=== PATIENT | female | born 1970 | race Caucasian/White ===

== ENCOUNTER → 2018-08-07 08:21 | Outpatient (CLI) | payer BC, SELFPAY ==
--- NOTE | 2018-08-07 10:04 | US_ITS ---
FNA w guidance, US thyroid HISTORY: ITS.REASON: THROID NODULE ORDERING PHYSICIAN: Benoit Adams MD PATIENT AGE: 48 years COMPARISON: None Thyroid ultrasound: Prebiopsy exam performed and compared to the outside exam of 06/05/2018 demonstrated in the complex mostly cystic mass in the mid aspect of the right lobe of the thyroid gland at 3 x 1.8 cm. Prebiopsy planning was then performed. TECHNIQUE: Following obtaining informed consent, using aseptic technique and local anesthesia with buffered lidocaine, fine-needle aspiration was performed of the nodule of interest using sonographic guidance. 3 passes were made into the nodule with a 25-gauge needle. Specimen was given to cytology. The patient tolerated the procedure well without evidence of immediate complications and left the ultrasound suite in stable condition. CYTOLOGY:Negative for malignant cells IMPRESSION: Successful sonographic guided fine-needle aspiration of the right thyroid nodule. Negative for malignant cells
== END ==
PROVIDERS: PCP Physician Assistant; Visit Provider Otolaryngology
DX: D34 Benign neoplasm of thyroid gland (principal)
CPT/HCPCS: 10022; 76536

== ENCOUNTER 2025-03-20 13:29 | Outpatient (POV) | payer MEDICARE, SELFPAY ==
[2025-03-20 14:57] VITALS: BP 105/63; PULSE 74; RESP 18; O2SAT 93; BMI 36.6
--- NOTE | 2025-03-20 15:50 | EXP.PAIN.OV ---
HPI Data of Consult Patient: new to practice Consult date: 03/20/25 Requesting Physician: Holly Mccoy APRN Primary Care Provider: TAMMI Kaminski Consult Narrative Reason for consult: Chronic low back pain History of present illness: Ms. Becerril is a 54 year old female who presents today as a new patient. She is a referral from Dr. Jamel Valencia office they are at [facility]. Today she rates her pain a 7 out of 10. Patient states she has chronic low back pain and denies any radiating symptoms into her legs. She states about 5 years ago she did end up having a lumbar fusion from an outside provider and it did help initially however over time its progressively worsened. She does describe it as just a constant painful sensation that interferes with activities of daily living such as cooking and cleaning. Patient has tried oral medications, heat and ice, topicals, at home stretching exercise for longer than 12 weeks as well as physical therapy that made her symptoms worse. Patient has tried multiple epidurals and facet injections including ablations with no additional relief. Patient was not being recommended for additional surgery by the neurosurgeon and was being recommended for more conservative treatments such as a pump. Patient is prescribed tramadol from an outside provider. Her Patrice has been reviewed and is appropriate. Patient does have a history of heart related issues and is on blood thinners written by Dr. Gomez there in [place]. CC: Holly Mccoy APRN [facility] Disclaimer: The information contained in this section may have been updated after the patient was seen, as this information can be updated by other users. Medical History (Updated 03/20/25 @ 15:55 by Holly Mccoy APRN) Vitamin D deficiency Depression Arthritis Emphysema of lung Thyroid disease GERD (gastroesophageal reflux disease) Heart disease Surgical History (Updated 03/20/25 @ 15:07 by Steff Lezama RN) History of lumbar spinal fusion Hx of cholecystectomy H/O: hysterectomy Family History (Updated 03/20/25 @ 15:05 by Steff Lezama RN) Other Diabetes Heart disease Hypertension Seizures Stroke Social History (Updated 03/20/25 @ 15:11 by Steff Lezama RN) Smoking Status: Current every day smoker alcohol intake: never current occupational status: unemployed Travel in the last 8 weeks?: None Contact w/someone who lives/traveled outside US past 30 days?: No Exposure to someone with infectious disease in past 14 days?: No Do you have a fever (greater than 100.4 F or 38 C)?: No Have you tested positive for COVID-19?: No Exposed to someone with COVID-19 in past 14 days?: No Do you have a sore throat?: No Do you have a cough?: No Do you have any weakness?: No Are you experiencing any nausea/vomitting?: No Do you have any diarrhea?: No Are you experiencing any unusual bleeding?: No Do you have any muscle aches/pain?: No Do you have any abdominal pain?: No Are you experiencing loss of taste or smell?: No Review of Systems Review of Systems Review of systems:: pertinent systems reviewed and negative unless documented below Review of systems (narrative): Review of Systems: General: No recent weight changes, no fever, no sleep disturbances Respiratory: No cough, no shortness of air, no recurring pulmonary infections Cardiovascular/peripheral vascular: No chest pain, no palpitations, no edema, no shortness of breath Gastrointestinal: No new onset incontinence, normal bowel movements reported Genitourinary: No new onset incontinence Musculoskeletal: Low back pain Psychiatric: [Normal mood/affect] Neurological: [Denies weakness in extremities], [denies balance issues] Meds Home Medications and Allergies Home Medications ?Medication ?Instructions ?Recorded ?Confirmed ?Type atorvastatin 80 mg tablet 80 mg PO DAILY Cholesterol 03/20/25 03/20/25 History blood sugar diagnostic (OneTouch 03/20/25 03/20/25 History Ultra Test strips) celecoxib 200 mg capsule 200 mg PO DIRECTED Pain 03/20/25 03/20/25 History citalopram 20 mg tablet 20 mg PO DIRECTED MOOD 03/20/25 03/20/25 History clopidogrel 75 mg tablet 75 mg PO DAILY CAD 03/20/25 03/20/25 History fluticasone propionate 50 1 spray intranasal DIRECTED 03/20/25 03/20/25 History mcg/actuation nasal ALLERGIES spray,suspension glipizide 10 mg tablet 10 mg PO DIRECTED DM 03/20/25 03/20/25 History hydrochlorothiazide 25 mg tablet 25 mg PO DIRECTED Fluid 03/20/25 03/20/25 History insulin glargine 100 unit/mL (3 50 unit SQ DAILY DM 03/20/25 03/20/25 History mL) subcutaneous pen (Lantus Solostar U-100 Insulin) levothyroxine 137 mcg tablet 137 mcg PO DAILY THYROID 03/20/25 03/20/25 History (Synthroid) montelukast 10 mg tablet 10 mg PO DAILY ALLERGIES 03/20/25 03/20/25 History pantoprazole 40 mg tablet,delayed 40 mg PO DAILY GERD 03/20/25 03/20/25 History release pen needle, diabetic 31 gauge x 03/20/25 03/20/25 History 3/16 semaglutide 0.25 mg or 0.5 mg (2 0.25 mg SQ WEEKLY DM 03/20/25 03/20/25 History mg/3 mL) subcutaneous pen injector (Ozempic) torsemide 20 mg tablet 20 mg PO DIRECTED Fluid 03/20/25 03/20/25 History trazodone 50 mg tablet 50 mg PO DIRECTED SLEEP 03/20/25 03/20/25 History New Prescriptions to Start Prescriptions: Allergies Allergy/AdvReac Type Severity Reaction Status Date / Time No Known Allergies Allergy Verified 03/20/25 15:23 Objective Vital signs: Pulse Resp BP Pulse Ox O2 Del Method 74 18 105/63 L 93 L Room Air 03/20/25 14:57 03/20/25 14:57 03/20/25 14:57 03/20/25 14:57 03/20/25 14:57 Narrative: Physical Exam: General: Alert and oriented x3, no acute distress, pleasant and cooperative Lungs: Respirations even and unlabored, symmetrical chest expansion Eyes: PERRL Musculoskeletal: Flexion and extension of lumbar [spine] somewhat guarded secondary to pain, [antalgic gait noted] extreme point tenderness on the lower lumbar spine Neurological: Speech clear, no gross sensory deficit Additional findings Additional findings: CT lumbar spine without contrast 02/17/2025 Findings: Evidence of prior fusion on the right SI joint with orthopedic hardware in place. Left-sided pars defect at L5. No evidence of malalignment no evidence of fracture. There are degenerative changes present throughout the lumbar spine with facet hypertrophic changes most notable at L5-S1. Assessment and Plan *Assessment and plan (1) Degenerative disc disease: Status: Acute Category: Medical (2) Lumbar facet arthropathy: Status: Acute Category: Medical Code(s): M47.816 - Spondylosis without myelopathy or radiculopathy, lumbar region (3) Chronic pain syndrome: Status: Acute Category: Medical Code(s): G89.4 - Chronic pain syndrome Plan I did discuss at length with the patient due to her chronic low back pain that has not had any improvement with additional injection therapy including epidurals and ablations that I do believe she would be a beneficial candidate of the intrathecal pain pump trial. Risk and benefits were discussed with patient and educational handouts given at today's visit. Patient would like to proceed forward with this plan of care. Patient will be sent for a psychological evaluation and if she is deemed an appropriate candidate we will proceed forward with the trial at a later date. I will also order the patient a compounded cream. Patient will return to clinic in 1 month for reevaluation of symptoms and plan of care. Patient has been instructed to contact the clinic with any concerns before the next appointment. Dr. Velez has reviewed this note and agrees with this plan of care. This note was dictated using voice recognition software and make contain errors or omissions. All injections are used with Lidocaine, Bupivacaine and dexamethasone. Occasionally urine drug screen is needed to verify patient's compliance with our office pain contract. This is ordered based off specific treatments related to chronic pain with the potential to abuse certain medications.
== END 2025-03-20 23:59 | disposition home or self-care (01) ==
LOC: SC.PAIN 13:30
PROVIDERS: PCP Physician Assistant; Visit Provider Nurse Practitioner Family
DX: M47.816 Spondylosis without myelopathy or radiculopathy, lumbar region (principal); G89.4 Chronic pain syndrome; Z73.89 Other problems related to life management difficulty; F17.200 Nicotine dependence, unspecified, uncomplicated
CPT/HCPCS: 99202; G0463

== ENCOUNTER 2025-05-01 09:17 | Outpatient (POV) | payer MEDICARE, SELFPAY ==
--- OUTSIDE RECORDS SUMMARY | 2025-02-18 20:00 | XMS_ITS | CCD ---
Author Name Armarkell RASHIDSilvia Address [address] [facility] [address] [place] [address] Phone Organization [facility] Phone Care Team Providers Care Decision Support Manager Name Role Phone Office, [place] Primary Care Provider Unavaila ble Unavailable Chronic Care Management Unavaila ble Summary Purpose DataExchange Insurance Providers Payer name Policy type / Coverage type Covered alliance party ID Effective Begin Date Effective End Date [employer] [facility] [id number] Unknown Unknown Family History Family History data not found Problems Condition Codes Effective Dates Condition St atus Patient not seen ICD-10: UXZ.01 ICD-9: UXZ.01 02/19/2025 Active Chest Pain Unknown 02/18/2025 Active History of cardiac catheterization Unknown 2024 Active Abnormal result of other cardiovascular function study ICD-10: R94.39 08/31/2023 Active Acute laryngitis ICD-10: J04.0 10/04/2023 Active Acute upper respiratory infe ction, unspecified ICD-10: J06.9 09/27/2022 Active Anemia, unspecified ICD-10: D64.9 12/23/2022 Active Angina pectoris, unspecified ICD-10: I20.9 08/31/2023 Active Atherosclerotic heart diseas e of [place] coronary artery without angina pectoris ICD-10: I25.10 09/04/2023 Active Meeks's esophagus without dysplasia ICD-10: K22.70 09/26/2024 Active Calculus of kidney ICD-10: N20.0 02/05/2024 Active Candidal stomatitis ICD-10: B37.0 09/27/2022 Active Cardiac murmur, unspecified ICD-10: R01.1 07/19/2023 Active Change in bowel habit ICD-10: R19.4 01/22/2024 Activ e Chronic fatigue, unspecified ICD-10: R53.82 12/28/2022 Active Chronic kidney disease, stag e 3 unspecified ICD-10: N18.30 11/11/2024 Active Chronic obstructive pulmonar y disease, unspecified ICD-10: J44.9 12/23/2022 Active Cough, unspecified ICD-10: R05.9 09/27/2022 Active Deficiency of other specifie d B group vitamins ICD-10: E53.8 07/05/2024 Active Depression, unspecified ICD-10: F32.A 12/23/2022 Act hans Disorder of the skin and subcutaneous tissue, unspecified ICD-10: L98.9 12/24/2024 Active Edema, unspecified ICD-10: R60.9 07/19/2023 Active Elevated white blood cell co unt, unspecified ICD-10: D72.829 07/02/2024 Active Essential (primary) hypertension ICD-10: I10 08/31/20 Active Fever, unspecified ICD-10: R50.9 01/01/2024 Active Frequency of micturition ICD-10: R35.0 09/07/2023 Ac tive Heart disease, unspecified ICD-10: I51.9 08/02/2023 Active Hyperlipidemia, unspecified ICD-10: E78.5 09/07/2023 Active Hypersomnia, unspecified ICD-10: G47.10 01/10/2023 A ctive Hypertrophic disorder of the skin, unspecified ICD-10: L91.9 12/24/2024 Active Hypokalemia ICD-10: E87.6 01/18/2024 Active Hypomagnesemia ICD-10: E83.42 06/29/2023 Active Hypothyroidism, unspecified ICD-10: E03.9 12/23/2022 Active Hypoxemia ICD-10: R09.02 04/05/2023 Active Iron deficiency ICD-10: E61.1 12/23/2022 Active Iron deficiency anemia, unspecified ICD-10: D50.9 08/20 Active Localized edema ICD-10: R60.0 09/07/2023 Active Major depressive disorder, recurrent severe without psychotic features ICD-10: F33.2 06/29/2023 Active Mixed incontinence ICD-10: N39.46 09/07/2023 Active Morbid (severe) obesity due to excess calories ICD-10: E66.01 09/26/2024 Active Nasal congestion ICD-10: R09.81 07/02/2024 Active Nausea ICD-10: R11.0 12/30/2022 Active Nausea with vomiting, unspecified ICD-10: R11.2 2023 Active Nicotine dependence, unspeci fied, uncomplicated ICD-10: F17.200 08/02/2023 Active Obstructive sleep apnea (liane lt) (pediatric) ICD-10: G47.33 06/29/2023 Active Other allergy, subsequent encounter ICD-10: T78.49XD 0 07/02/2024 Active Other amnesia ICD-10: R41.3 02/23/2023 Active Other chest pain ICD-10: R07.89 08/01/2023 Active Other forms of dyspnea ICD-10: R06.09 04/05/2023 Act hans Other intervertebral disc displacement, lumbar region ICD-10: M51.26 02/23/2023 Active Pain in unspecified joint ICD-10: M25.50 11/07/2024 Active Peripheral vascular disease, unspecified ICD-10: I73.9 11/07/2023 Active Sleep disorder, unspecified ICD-10: G47.9 12/28/2022 Active Somnolence ICD-10: R40.0 12/28/2022 Active Type 2 diabetes mellitus wit h hyperglycemia ICD-10: E11.65 07/06/2023 Active Type 2 diabetes mellitus wit hout complications ICD-10: E11.9 12/28/2022 Active Urinary tract infection, sit e not specified ICD-10: N39.0 11/07/2023 Active Vitamin D deficiency, unspecified ICD-10: E55.9 2022 Active Medications Medication Codes Instructions Start Date Stop Date Status Fill Instructions nitrofurantoin, macrocrystal-monohydrat e, (MACROBID) 100 MG capsule RxNorm: 3447432 Take 1 capsule (100 mg total) by mouth 2 (two) times daily. 02/19/20 25 Active hydroCHLOROthiazide (HYDRODIURIL) 25 MG tablet RxNorm: 504557 Take 1 tablet (25 mg total) by mouth daily. 02/19/20 25 Active diclofenac (VOLTAREN) 75 MG EC tablet RxNorm: 438701 Take 1 tablet (75 mg total) by mouth 2 (two) times daily. 02/19/20 25 Active traZODone (DESYREL) 50 MG tablet RxNorm: 146919 Take 1 tablet (50 mg total) by mouth nightly. 02/19/20 25 Active torsemide (DEMADEX) 20 MG tablet RxNorm: 717761 Take 1 tablet (20 mg total) by mouth daily. 02/19/20 25 Active glipiZIDE (GLUCOTROL) 10 MG tablet RxNorm: 260371 Take 1 tablet (10 mg total) by mouth 2 (two) times daily before meals. 02/19/20 25 Active citalopram (CeleXA) 20 MG tablet RxNorm: 349680 Take 1 tablet (20 mg total) by mouth daily. 02/19/20 25 Active pantoprazole (PROTONIX) 40 MG tablet RxNorm: 019182 Take 1 tablet (40 mg total) by mouth daily. 02/19/20 25 Active aspirin 81 MG EC tablet RxNorm: 717928 Take 1 tablet (81 mg total) by mouth daily. 02/19/20 25 Active levothyroxine (SYNTHROID, LEVOTHROID) 112 MCG tablet RxNorm: 015748 Take 1 tablet (112 mcg total) by mouth Every morning on an empty stomach. 02/19/20 25 Active clopidogreL (PLAVIX) 75 mg tablet RxNorm: 818997 Take 1 tablet (75 mg total) by mouth daily. 02/19/20 25 Active atorvastatin (LIPITOR) 80 MG tablet RxNorm: 296983 Take 1 tablet (80 mg total) by mouth daily. 02/19/20 25 Active nitroglycerin (NITROSTAT) 0.4 MG SL tablet RxNorm: 393305 Place 1 tablet (0.4 mg total) under the tongue every 5 (five) minutes as needed for Chest pain Put 1 pill under tongue every 5min as needed for chest pain.No more than 3 doses in 15min.Call 911 if pain unrelieved 5min after 1st dose. 02/19/20 25 Active Medication Administered No Medication Administered data Reason For Visit No Reason For Visit data Encounters Encounter Performer Location Location Address Codes Date () No answer/Patient not seen Diagnosis: Patient not seen[ICD10: UXZ.01] Sivlia Dumont [place] Office [address] [place] [address] CPT-4: 31015 02/19/2025 Plan of Care Planned Activity Notes Codes Status Date Patient Education: Patient Medication Summary Completed 02/19/2025 Medical Equipment No Medical Equipment data Advance Directives No Advance Directive data
--- OUTSIDE RECORDS SUMMARY | 2025-05-01 09:28 | XMS_ITS | Encounter Summary ---
Author Organization [facility] Address [address] [place] [id number] Care Team Providers Care Contractor Broomcorn Threshing Name Role Phone Tadeo Nieves PA-C Unavailable [phone] Fred Jameson Primary Care Provider Encounter Details Date Type Department Care Team (Late st Contact Info) Description 05/28/2020 Transcribed Document [facility] [address] [place] [address] ProviderBettie MD [address] [place] [address] Social History Tobacco Use Types Packs/Day Years Used Date Smoking Tobacco: Never Assessed Comments Unknown Sex and Gender Information Value Date Recorded Sex Assigned at Not on file Legal Sex Female 5:15 PM CDT Gender Identity Not on file Sexual Orientation Not on file documented as of this encounter Miscellaneous Notes * [employer]ner Conversion Note - Bettie ProviderMD - 05/28/2020 8:33 AM CDT UM Authorization Entered On: 05/28/2020 8:33 EDT Performed On: 05/28/2020 8:33 EDT by MARIELLE MATHEW RN-Utilization Review Primary Insurance Authorization Authorization and Policy Numbers : Insurance 1 Health Plan: [employer] Policy Number: [id number] Authorization Number: [id number] Insurance Primary Name : [employer]LE [employer] Policy Number: [id number] Authorization Status-Primary : Opo status approv Authorized Service Begin Date-Primary : 05/27/2020 EDT Observation Authorization Nbr-Primary : [id number] Authorization Comments-Primary : [place] auth approved per availity for obs Historical Authorization Comments-Primary : No Authorization Comments Found MARIELLE MATHEW, RN-Utilization Review - 05/28/2020 8:33 EDT Electronically signed by [facility]it [facility] Conversion Credit Risk Manager Cerner at 03/07/2023 9:22 AM CDT documented in this encounter Plan of Treatment Not on file documented as of this encounter Visit Diagnoses Not on filedocumented in this encounter Care Teams Contractor [employer] Threshing Relationship Specialty Start Date End Date Fred Jameson PA [address] [place] [address] PCP - General Physician Clinical Ob 12/11/23 Tadeo Nieves PA-[place] [address] [facility] [address]nd [place] [address] Physician Clinical Ob 01/27/23 documented as of this encounter
--- OUTSIDE RECORDS SUMMARY | 2025-05-01 09:28 | XMS_ITS | Encounter Summary ---
Author Organization [facility] [email or web address] In iatives Address [address] [place] [address] Care Team Providers Care Study Lead Name Role Phone Tadeo Nieves PA-C Unavailable [phone] Fred Jameson Primary Care Provider Encounter Details Date Type Department Care Team (Late st Contact Info) Description 05/27/2020 Transcribed Document [facility] [place] [facility] [place] [address] ProviderBettie MD [address] [place] [address] Social History Tobacco Use Types Packs/Day Years Used Date Smoking Tobacco: Never Assessed Comments Unknown Sex and Gender Information Value Date Recorded Sex Assigned at Not on file Legal Sex Female 5:15 PM CDT Gender Identity Not on file Sexual Orientation Not on file documented as of this encounter Miscellaneous Notes * Cerner Conversion Note - Bettie ProviderMD - 05/27/2020 12:44 PM CDT Pre Procedure Adult Entered On: 05/27/2020 12:54 EDT Performed On: 05/27/2020 12:44 EDT by Sara Reed RN Height and Weight, Clinical Dosing Height Source : Stated Height Entry Format : [place] Height, Feet : 5 ft(Converted to: 152 cm, 60 Inch) Height, Inches : 5 Inch(Converted to: 0 ft 5 Inch, 12.70 cm) Clinical Height : 165.1 cm Weight Source : Standing scale Weight Entry Format : [place] Clinical Dosing Weight : 112.95 kg Weight, Pounds : 248 lb Weight, Ounces : 8 oz Body Surface Area (BSA) : 2.17 m2 Body Mass Index : 41.4 kg/m2 (>HHI) Crowder Body Weight : 57 kg Sara Reed RN - 05/27/2020 12:44 EDT Health Histories Smoking Status : 10 or more cigarettes (1/2 pack or more)/day in last 30 days Smokeless Tobacco Status : Never Desires Tobacco Cessation Medication : No Reason for No Tobacco Cessation Medication : Refuses FDA approved medications Sara Reed RN - 05/27/2020 12:44 EDT Social History (As Of: 05/27/2020 12:54:53 EDT) Tobacco: 10 or more cigarettes (1/2 pack or more)/day in last 30 days Smoking Status. Never Smokeless Tobacco Status. Years of Use: 30. Packs/Tins Daily: .5. (Last Updated: 05/27/2020 12:45:45 EDT by Sara Reed RN) Alcohol: Alcohol Use History No. (Last Updated: 05/27/2020 12:45:48 EDT by Sara Reed RN) Substance Abuse: Drug Use Hx: No. (Last Updated: 05/27/2020 12:45:52 EDT by Sara Reed RN) Infectious Disease History Has the patient ever been tested for COVID-19? : Yes, Patient stated results Negative Where was the COVID-19 Testing completed? : [facility] Where are the test results? : Paper Copy on chart Date of COVID-19 test known? : Yes Date of COVID-19 Test : 05/25/2020 EDT COVID19 Screening : No Experiencing Infectious Disease Symptoms : No symptoms Physical contact outside [place] in the last 30 days : No Infectious Disease Symptoms Score : 0 Infectious Disease History : Chicken pox/Shingles, Influenza, Measles Active Surveillance Screen Assessment : Patient does not meet any of above criteria Active Surveillance Screen Negative : Yes Exposure to Contagious Illness : No Tuberculosis Symptoms : None Sara Reed RN - 05/27/2020 12:44 EDT COVID19 PreProcedure Screening Is this an Emergent or Add on Procedure? : No Date of COVID-19 test known? : Yes Date of COVID-19 Test : 05/25/2020 EDT Has patient been isolated since the test : Yes Exposed to COVID19 symptoms since test? : No Sara Reed RN - 05/27/2020 12:44 EDT Anesthesia/Transfusion History Family History of Anesthesia Reaction : No prior transfusion(s) Blood Transfusion Acceptable to Patient : Yes Transfusion History : Prior anesthesia without reaction Family History of Anesthesia Reaction : None Sara Reed RN - 05/27/2020 12:44 EDT Functional Assessment Living Situation : Home Patient Lives With : Spouse Persons Assisting Patient at Home : Spouse Current Daily Living Assistance : None Sensory Deficits : None Mobility Assistance Prior to Admission : Independent DUNCAN Hx Falls Immediate/Within 3 Months : No Current Home Treatments : None Home Equipment : None Professional Skilled Services : None Special Services and Community Resources : None Sara Reed RN - 05/27/2020 12:44 EDT [place] Suicide Severity Rating Scale (C-SSRS) CSSRS Past Month Wish to be : No CSSRS Past Month Suicidal Thoughts : No CSSRS Lifetime Suicide Behavior : No Suicide Severity Rating Score : 0 Suicide Severity Rating : No Additional Care Required at this time Sara Reed RN - 05/27/2020 12:44 EDT Psychosocial History Currently in Unsafe Situation : No Sara Reed RN - 05/27/2020 12:44 EDT Advance Directive Patient has Advance Directive *Q : No, patient refuses Advance Directive information Sara Reed RN - 05/27/2020 12:44 EDT Spiritual/Cultural Needs Any Spiritual/Cultural Needs or Requests : No Sara Reed RN - 05/27/2020 12:44 EDT Teaching/Learning Assessment Barriers To Learning : None evident Individuals Taught : Patient Readiness to Learn : Cooperative Baseline Knowledge of Topic : Good Readiness to Learn : Explanation Learning Style Preferences Patient : None Sara Reed RN - 05/27/2020 12:44 EDT General Info Arrived From : Home Mode of Arrival on Unit : Ambulatory Patient Arrival Date/Time : 05/27/2020 10:50 EDT Legal Guardian : Unaccompanied Want Family/Rep/Phys Notified of Admit : No Emergency Contact #1 : Siria Becerril Emergency Contact #1 Emergency Contact #1 Relationship : spouse Emergency Contact #2 : na Emergency Contact #2 Phone Number : na Emergency Contact #2 Relationship : na Information Obtained From : Patient Primary Language : Austrian Preferred Communication Mode : Verbal Communication Barrier : None Bricklayer Apprentice Needed : No Objects to Sharing Info w Family : No Currently Lactating : No Status : Hysterectomy Sara Reed RN - 05/27/2020 12:44 EDT Vital Measurements Temperature Source : Temporal artery scanning Temperature Mode : Fahrenheit Temperature, Fahrenheit : 98.4 Deg F Clinical Temperature, C : 36.9 Deg C Pulse Method : Pulse Oximetry Peripheral Pulse Rate : 87 bpm Respiratory Rate : 16 Breaths/Min Blood Pressure Location : Arm, left upper Blood Pressure Source : Non-Invasive BP Device Blood Pressure Position : Sitting Systolic Blood Pressure : 129 mmHg Diastolic Blood Pressure : 78 mmHg Oxygen Saturation : 95 % Oxygen Therapy Mode : Room air Sara Reed RN - 05/27/2020 12:44 EDT Sleep Apnea Risk Assmt Hx of Obstructive Sleep Apnea Diagnosis : No Snore Loudly : No Tired, Fatigued, or Sleepy During Day : No Observed Stopping Breathing During Sleep : No Have/Are Being Treated for Hypertension : Yes BMI Greater Than 35 kg/m2 : Yes Age over 50 Years Old : No Neck Circumference Greater Than 40 cm : Yes Gender Male : No STOP-BANG Sleep Apnea Risk Level Score : 3 Sara Reed RN - 05/27/2020 12:44 EDT Corwin Scale Corwin Sensory Perception : No impairment Corwin Moisture : Rarely moist Corwin Activity : Walks occasionally Corwin Mobility : No limitation Corwin Nutrition : Adequate Corwin Friction and Shear : No apparent problem Corwin Score : 21 Corwin Contributing Risk Factors : Obesity Sara Reed RN - 05/27/2020 12:44 EDT Oxygen Therapy Oxygen Therapy Mode : Room air Sara Reed RN - 05/27/2020 12:44 EDT Pain Assessment Pain Assessment : Initial assessment Pain Scale Goal : 3 Pain Scale Used : 0-10 Scale Sara Reed RN - 05/27/2020 12:44 EDT Fall Risk Scales ABCs Fall Injury Risk Identification : None DUNCAN Hx Falls Immediate/Within 3 Months : No Duncan Secondary Diagnosis : Yes DUNCAN Use of Ambulatory Aid : None DUNCAN IV Therapy or IV Access : Yes Duncan Gait/Transferring : Impaired Duncan Mental Status : Oriented to own ability Duncan Fall Risk Score : 55 DUNCAN Fall Scale Risk Level : 46 or > High Risk [place] Fall Interventions : Adequate lighting, Bed in low position, Call device within reach, Hourly comfort/safety rounds, Non-slip footwear, Personal items within reach, Reinforced to call for assistance before getting out of bed, Room free of clutter/spills, Upper side-rails up, Wheels locked, Wires/Cords secured Sara Reed RN - 05/27/2020 12:44 EDT Fall Risk Education Grid Bed Height/Stabilization : Verbalizes understanding Call light use : Verbalizes understanding Eyeglasses Use : Verbalizes understanding Nonskid Footwear Use : Verbalizes understanding Prevention Responsibility Patient : Verbalizes understanding Siderails use/risks : Verbalizes understanding Staff Responsiveness : Verbalizes understanding Sara Reed RN - 05/27/2020 12:44 EDT Barriers to Learning : None evident Individuals Taught : Patient Readiness to Learn : Cooperative Baseline Knowledge of Topic : Good Teaching Method : Explanation Learning Style Preferences Patient : None Teaching Evaluation : Verbalizes understanding Sara Reed RN - 05/27/2020 12:44 EDT Education Topics, Day of Surgery DayofSurgery Education Grid Anesthesia/Sedation : Verbalizes understanding Fall Risks : Verbalizes understanding Family Instructions : Verbalizes understanding Infection Risks : Verbalizes understanding IV's : Verbalizes understanding Medication Instructions : Verbalizes understanding Pain Management : Verbalizes understanding Plan of Care : Verbalizes understanding Responsible Adult : Verbalizes understanding Sara Reed RN - 05/27/2020 12:44 EDT Valuables and Belongings Valuables and Belongings : Clothing, Personal devices Clothing : Common streetwear Clothing Disposition : Sent to locker Personal Device Disposition : Sent to locker Personal Devices : Glasses Sara Reed RN - 05/27/2020 12:44 EDT Pain Scale Intensity : 0 Sara Reed RN - 05/27/2020 12:44 EDT Image 4 - Images currently included in the form version of this document have not been included in the text rendition version of the form. [place]anga Coma Fermín Best Motor Response : Obey commands Topanga Best Verbal Response : Oriented Fermín Eye Opening Response : Spontaneous Fermín Coma Score : 15 Sara Reed RN - 05/27/2020 12:44 EDT Electronically signed by Sarah Cohn Conversion Independent Agent Music Education Cerner at 03/07/2023 9:37 AM CDT documented in this encounter Plan of Treatment Not on file documented as of this encounter Visit Diagnoses Not on filedocumented in this encounter Care Teams Study Lead Relationship Specialty Start Date End Date Fred Jameson PA [address] [place] [address] PCP - General Physician Wharf Tender Head 12/11/23 Tadeo Nieves PA-C [address] [facility] 2nd [place] [address] Physician Wharf Tender Head 01/27/23 documented as of this encounter
--- OUTSIDE RECORDS SUMMARY | 2025-05-01 09:28 | XMS_ITS | Encounter Summary ---
Author Organization [facility] In [employer] Address [address] [place] [address] Care Team Providers Care Tar Heater Name Role Phone Tadeo Nieves PA-C Unavailable [phone] Fred Jameson Primary Care Provider Encounter Details Date Type Department Care Team (Late st Contact Info) Description 05/27/2020 Transcribed Document [facility] [place] [facility] [place] [address] ProviderBettie MD [address] [place] [address] Social History Tobacco Use Types Packs/Day Years Used Date Smoking Tobacco: Never Assessed Comments Unknown Sex and Gender Information Value Date Recorded Sex Assigned at Not on file Legal Sex Female 5:15 PM CDT Gender Identity Not on file Sexual Orientation Not on file documented as of this encounter Miscellaneous Notes * Cerner Conversion Note - Bettie ProviderMD - 05/27/2020 2:35 PM CDT [facility] OR PACU Summary Primary Physician: SIERRA MORRISON MD-ORJeet Finalized Date/Time: 05/27/20 16:25:54 Pt. Name: LAINEY BECERRIL SRIKANTH Chung/Sex: 1970 Female Med Rec #: [id number] Physician: SIERRA MORRISON MD-SHASHI Financial #: [id number] Pt. Type: O Room/Bed: [facility]/1 Admit/Disch: 05/27/20 10:31:00 - Institution: [facility] OR PACU Case Times Entry 1 In PACU I 07/08/20 15:20:00 Ready for PACU 05/27/20 15:50:00 Discharge Discharge from PACU 05/27/20 16:25:00 I Last Modified By: Alem Ruiz RN 05/27/20 16:25:33 [facility] OR PACU Case Times Audit 05/27/20 16:25:33 Rehab Assistant: CARRIEC Modifier: CARRIEC <+> 1 Discharge from PACU I [facility] OR PACU Acuity Entry 1 Start Time 05/27/20 15:50:00 Stop Time 05/27/20 16:25:00 Acuity Level [facility] PACU Acuity I Last Modified By: Alem Ruiz RN 05/27/20 16:25:41 Finalized By: Alem Ruiz RN Document Signatures Signed By: Alem Ruiz RN 05/27/20 16:25 Electronically signed by Lalit [facility] Conversion Landscape Maintenance Internship Cerner at 03/07/2023 9:39 AM CDT documented in this encounter Plan of Treatment Not on file documented as of this encounter Visit Diagnoses Not on filedocumented in this encounter Care Teams Tar Heater Relationship Specialty Start Date End Date Fred Jameson PA [address] [place] [address] PCP - General Physician Aircraft Maintenance Technician 12/11/23 Tadeo Nieves PA-C 1976 [facility] 2nd [place] [address] Physician Aircraft Maintenance Technician 01/27/23 documented as of this encounter
--- OUTSIDE RECORDS SUMMARY | 2025-05-01 09:28 | XMS_ITS | Encounter Summary ---
Author Organization [facility] In [employer] Address [address] [place] [address] Care Team Providers Care Fisher Troll Line Name Role Phone Tadeo Nieves PA-C Unavailable [phone] Fred Jameson Primary Care Provider Encounter Details Date Type Department Care Team (Late st Contact Info) Description 05/27/2020 Transcribed Document [facility] [place] [facility] [place] [address] ProviderBettie MD [address] [place] [address] Social History Tobacco Use Types Packs/Day Years Used Date Smoking Tobacco: Never Assessed Comments Unknown Sex and Gender Information Value Date Recorded Sex Assigned at Not on file Legal Sex Female 5:15 PM CDT Gender Identity Not on file Sexual Orientation Not on file documented as of this encounter Miscellaneous Notes * Cerner Conversion Note - Bettie ProviderMD - 05/27/2020 4:30 PM CDT Evaluation, Physical Therapy Entered On: 05/28/2020 9:35 EDT Performed On: 05/28/2020 8:30 EDT by OTNJA GOMEZ, PT General Information, PT Visit Type, PT : Initial evaluation Patient Orders : Order Date Order Ordering 05/27/2020 16:31 PT Evaluation and Treatment Ordered By: SIERRA MORRISON MD-ORT Active Diagnoses : 05/27/2020 12:00 Ankylosis, unspecified joint 05/27/2020 12:00 Essential (primary) hypertension 05/27/2020 12:00 Gastro-esophageal reflux disease without esophagitis 05/27/2020 12:00 Hypoxemia 05/27/2020 12:00 Nicotine dependence, unspecified, with unspecified nicotine-induced disorders 05/27/2020 12:00 Other specified anxiety disorders 05/27/2020 12:00 Other specified personal risk factors, not elsewhere classified 05/27/2020 12:00 Type 2 diabetes mellitus without complications 05/27/2020 12:00 Unspecified osteoarthritis, unspecified site Therapy Diagnosis, PT : reduced mobility Admission Date : 05/27/2020 10:31 Personal Devices : Personal Devices Glasses Assistive Devices : Assistive Devices No Devices Recorded TONJA GOMEZ, PT - 05/28/2020 9:24 EDT General Status Patient Received Status : Up in chair Treatment Start Time : 05/28/2020 8:30 EDT Patient Left Status : Up in chair, RN/PCT informed, Family/Visitors at bedside, Communication board completed, All needs met and within reach RN/PCT Informed Comment : Yes, RN approved pt for PT eval and pt agreeable Treatment End Time : 05/28/2020 8:46 EDT Treatment Time : 16 Minute(s) TONJA GOMEZ, PT - 05/28/2020 9:24 EDT History and Environment Living Situation, Therapy : Home Patient Lives With : Spouse Persons Assisting Patient at Home : Spouse Professional Skilled Services : None Persons Providing Information : Patient, Spouse Home Equipment Therapy, PT : None Home Setup : One story Stairs : No Ramp : Yes TONJA GOMEZ, PT - 05/28/2020 9:24 EDT Prior Level of Function PT GRID Prior LOF Ambulation, Household : Independent Prior LOF Ambulation, Community : Independent Prior LOF Bed Mobility : Independent Prior LOF Toileting : Independent Prior LOF Transfer : Independent TONJA GOMEZ, PT - 05/28/2020 9:24 EDT Upper Extremity Upper Extremity Dominance : Right Right UE Active ROM : WFL Right UE Strength : WFL Left UE Active ROM : WFL Left UE Strength : WFL TONJA GOMEZ, PT - 05/28/2020 9:24 EDT Lower Extremity RLE Active ROM : WFL Right LE Strength : WFL LLE Active ROM : WFL Left LE Strength : WFL TONJA GOMEZ, PT - 05/28/2020 9:24 EDT Functional Mobility Mobility Grid Sit to Stand : Supervision/set-up Bed to Chair : Supervision/set-up Stand to Sit : Supervision/set-up TONJA GOMEZ, PT - 05/28/2020 9:24 EDT Gait Training/Assessment, PT Weight Bearing Status Comment : 50% WB RLE Walking Distance : 100 feet with RWX, supervision, gait belt, 50% WB RLE, verbal cues initially for restricted weight bearing and for correct gait sequence Ambulatory Devices : Gait belt, Walker, front wheel Gait Deviations : Yes Gait Training Comment : see above Stair(s) Ascend/Descend Training : No TONJA GOMEZ, PT - 05/28/2020 9:24 EDT Neuromuscular Reeducation, PT Balance Comment : good sitting and standing TONJA GOMEZ, PT - 05/28/2020 9:24 EDT Neurological/Sensory Overall Sensory Response : Intact Light Touch Response : Intact TONJA GOMEZ, PT - 05/28/2020 9:24 EDT Activity Tolerance, PT Activity Comment : good TONJA GOMEZ, PT - 05/28/2020 9:24 EDT Cognition Assessment, PT Orientation : Oriented x 4 Attention Assessment : Present TONJA GOMEZ, PT - 05/28/2020 9:24 EDT Edu Topics Physical Therapy Education Grid Gait Training : Verbalizes understanding, Returns demonstration Home Program/Exercises : Returns demonstration, Verbalizes understanding Precaution/Contraindication : Verbalizes understanding, Returns demonstration Safety : Verbalizes understanding, Returns demonstration Transfer Training : Verbalizes understanding, Returns demonstration Use of Assistive Device : Verbalizes understanding, Returns demonstration TONJA GOMEZ, PT - 05/28/2020 9:24 EDT Indication Assesessment, PT Physical Therapy Indicated : No Physical Therapy Not Indicated : Prior level of function Interdisciplinary Consultation(s) Needed : No Potential Barriers To Therapy : None evident Rehabilitation Potential : At prior level of function TONJA GOMEZ, PT - 05/28/2020 9:24 EDT Plan of Care, PT PT Tx Plan/Goals Established w Patient : No Reason Tx/Plan Not Established W/ Pt PT : pt is at her PLOF and no further skilled PT services are indicated at this time PT Frequency Rehab : Other: eval only Other PT Treatment Provided This Date : eval only PT Duration Rehab : Other: eval only PT Treatments Planned : Other: eval only Plan of Care Comment, PT : eval only TONJA GOMEZ, PT - 05/28/2020 9:24 EDT Treatment Note Subjective Comment : agreeable Patient's Response to Treatment : good Additional Objective Information : see eval Pt and family educated on MD restrictions of no bending, no lifting>5# and no twisting PT issued written SPINE education packet to reinforce MD restrictions of no bending, lifting or twisting and PT educated patient on each of the following: correct log roll technique, correct supine>sit , sit>stand transfer, correct object carrying technique and correct car transfer. Assessment : pt is at her PLOF and no further skilled PT services are indicated at this time Plan for Treatment : eval only TONJA GOMEZ, PT - 05/28/2020 9:24 EDT Pain Assessment Pain Scaled Used : 0-10 Pain scale Pain Score Pre-Intervention : 0 Pain Score Post-Intervention. : 0 TONJA GOMEZ, PT - 05/28/2020 9:24 EDT Image 1 - Images currently included in the form version of this document have not been included in the text rendition version of the form. [facility] PT Charges Gait Training Each 15 Min : 1 PT Eval Low Complexity : 1 TONJA GOMEZ, PT - 05/28/2020 9:24 EDT documented in this encounter Plan of Treatment Not on file documented as of this encounter Visit Diagnoses Not on filedocumented in this encounter Care Teams Fisher Troll Line Relationship Specialty Start Date End Date Fred Jameson PA [address] [place] [address] PCP - General Physician Warranty Clerk 12/11/23 Tadeo Nieves PA-C [address] [facility] 2nd [place] [address] Physician Warranty Clerk 01/27/23 documented as of this encounter
--- OUTSIDE RECORDS SUMMARY | 2025-05-01 09:28 | XMS_ITS | Encounter Summary ---
Author Organization [facility] Address [address] [place] [id number] Care Team Providers Care Specialty Finishing Utility Person Name Role Phone Tadeo Nieves PA-C Unavailable [phone] Fred Jameson Primary Care Provider Encounter Details Date Type Department Care Team (Late st Contact Info) Description 05/27/2020 Transcribed Document [facility] Family Medicine [facility] [place] [address] ProviderBettie MD [address] [place] [address] Social History Tobacco Use Types Packs/Day Years [...] ProviderMD - 05/27/2020 4:30 PM CDT Evaluation, Occupational Therapy Entered On: 05/28/2020 12:59 EDT Performed On: 05/28/2020 11:56 EDT by JULIEN RICK OTR/Ivana General Information, OT Visit Type, OT : Initial evaluation Patient Orders : Order Date Order Ordering 05/27/2020 16:31 OT Evaluation and Treatment Ordered By: SIERRA MORRISON [...] 12:00 Unspecified osteoarthritis, unspecified site Therapy Diagnosis, OT : aftercare following R SI joint fusion Admission Date : 05/27/2020 10:31 Assisted by, OT : Physical Therapist Personal Devices : Personal Devices Glasses Assistive Devices : Assistive Devices No Devices Recorded General Information Comment, OT : pt is a pleasant 49 y.o. female admitted s/p R SI joint fusion performed by Dr. Morrison and is 50% PWB RLE , back precautions JULIEN RICK OTR/Ivana - 05/28/2020 11:56 EDT General Status Patient Received Status : Up in chair, Other: present Treatment Start Time : 05/28/2020 8:30 EDT Patient Left Status : Up in chair, RN/PCT informed, Family/Visitors at bedside, All needs met and within reach, Other: present RN/PCT Informed Comment : RN Ok'd to tx, ID and verifeid Treatment End Time : 05/28/2020 8:46 EDT Treatment Time : 16 Minute(s) JULIEN RICK OTR/L - 05/28/2020 11:56 EDT History and Environment, OT Living Situation, Therapy : Home Patient Lives With : Spouse Persons Assisting Patient at Home : Spouse Professional Skilled Services : None Persons Providing Information : Patient, Spouse Home Equipment, Therapy : None Home Setup : One story Stairs : No Ramp : Yes JULIEN RICK OTR/Ivana - 05/28/2020 11:56 EDT Prior LOF Bathing, OT : Independent Prior LOF Bed Mobility : Independent Prior LOF Upper Body Dressing, OT : Independent Prior LOF Lower Body Dressing, OT : Independent Prior LOF Toileting : Independent Prior LOF Transfer : Independent Prior LOF Grooming, OT : Independent Prior LOF for IADLs, OT : Independent JULIEN RICK OTR/Ivana - 05/28/2020 11:56 EDT Upper Extremity Right UE Active ROM : WFL Right UE Strength : WFL Left UE Active ROM : WFL Left UE Strength : WFL JULIEN RICK OTR/Ivana - 05/28/2020 11:56 EDT Self Care/Home Management, OT Lower Body Dressing Device Comment, OT : pt education on LB dressing technique and maintaining back precautions/weight bearing, assisted pt earlier Toileting Comment : education on precautions to complete Bed/Chair/WC Transfer Assist Level : Independent, modified Bed/Chair/WC Transfer Device : Belt, gait, Walker, front wheel Bed/Chair/WC Device Comment : cues for weight bearing and safe use of rw , mod I/S JULIEN RICK OTR/Ivana 05/28/2020 11:56 EDT Mobility Device/Prosthesis/Wt Bearing Weight Bearing Order Status : 50% PWB RLE Weight Bearing Status : Partial right lower extremity Functional Ambulation Comment : cues for sequencing for maintaining PWB with rw JULIEN RICK OTR/Ivana 05/28/2020 11:56 EDT Functional Mobility Mobility Grid Sit to Stand : Rehab Modified independence Bed to Chair : Rehab Modified independence Chair to Bed : Rehab Modified independence Stand to Sit : Rehab Modified independence JULIEN RICK OTR/Ivana 05/28/2020 11:56 EDT Functional MobilityComment : gait belt donned, using rw pt completes functional mobility S/mod I using rw, pt education on back precautions and PWB RLE JULIEN RICK OTR/Ivana 05/28/2020 11:56 EDT Activity Tolerance, OT Activity Comment : good JULIEN RICK OTR/Ivana 05/28/2020 11:56 EDT Neurological/Sensory Overall Sensory Response : Intact JULIEN RICK OTR/Ivana 05/28/2020 11:56 EDT Cognition Assessment, OT Orientation : Oriented x 4 JULIEN RICK OTR/Ivana 05/28/2020 11:56 EDT Education OT Occupational Therapy Education Grid Activity of Daily Living Training : Verbalizes understanding, Returns demonstration Functional Mobility Training : Verbalizes understanding, Returns demonstration Home Safety : Verbalizes understanding JULIEN RICK OTR/Ivana 05/28/2020 11:56 EDT Indication Assessment, OT Occupational Therapy Indicated : No Occupational Therapy Not Indicated : No skilled services indicated JULIEN RICK OTR/Ivana 05/28/2020 11:56 EDT Plan of Care, OT OT Tx Plan/Goals Established w Patient : No Reason OT Treatment/Plan Not Established : no further acute care OT indicated Other OT Treatment Provided This Date : ADL/pt education JULIEN RICK OTR/Ivana - 05/28/2020 11:56 EDT Treatment Note Subjective Comment : pt agrees to tx Additional Objective Information : eval 8 minutes ADL 8 minutes Assessment : no further acute care OT needs at this time, pt educated on PWB RLE using rw, back precautions and home safety. Plan for Treatment : no further skilled acute care OT indicated JULIEN RICK OTR/Ivana - 05/28/2020 11:56 EDT Pain Assessment Pain Scaled Used : 0-10 Pain scale Pain Score Pre-Intervention : 1 Pain Comment : minimal reports of pain JULIEN RICK OTR/Ivana - 05/28/2020 11:56 EDT Image 1 - Images currently included in the form version of this document have not been included in the text rendition version of the form. [place] OT Charges OT Selfcare/Hm Mgmt Ea 15 Min : 1 OT Eval Low Complexity : 1 JULIEN RICK OTR/Ivana - 05/28/2020 11:56 EDT documented in this encounter Plan of Treatment Not on file documented as of this encounter Visit Diagnoses Not on filedocumented in this encounter Care Teams Specialty Finishing Utility Person Relationship Specialty Start Date End Date Fred Jameson PA [address] [place], [place] [phone] PCP - General Physician Programs Director 12/11/23 Tadeo Nieves PA-C [address] [facility] [address] [place] [address] Physician Programs Director 01/27/23 documented as of this encounter
--- OUTSIDE RECORDS SUMMARY | 2025-05-01 09:28 | XMS_ITS | Encounter Summary ---
Author Organization [facility] Address [address] [place] [address] Care Team Providers Care Exceptional Children Teacher Assistant Name Role Phone Tadeo Nieves PA-C Unavailable [phone] Fred Jameson Primary Care Provider Encounter Details Date Type Department Care Team (Late st Contact Info) Description 05/28/2020 Transcribed Document [facility] Family Medicine [facility] [place] [address] ProviderBettie MD [address] [place] [address] Social History Tobacco Use Types Packs/Day Years Used Date Smoking Tobacco: Never Assessed Comments Unknown Sex and Gender Information Value Date Recorded Sex Assigned at Not on file Legal Sex Female 5:15 PM CDT Gender Identity Not on file Sexual Orientation Not on file documented as of this encounter Miscellaneous Notes * Cerner Conversion Note - Bettie ProviderMD - 05/28/2020 9:32 AM CDT Nursing Discharge Summary Entered On: 05/28/2020 9:32 EDT Performed On: 05/28/2020 9:32 EDT by Idalia Iniguez, customer service sales consultant Documentation Patient Disposition, General : Discharge Discharge To : Home with ambulatory/outpatient follow-up Mode Of Departure, General Discharge : Private vehicle Accompanied By, Discharge : Spouse IV Discontinued : Yes Personal Belongings With Patient : Yes Prescriptions Given to Patient : Yes Idalia Iniguez RN - 05/28/2020 9:32 EDT documented in this encounter Plan of Treatment Not on file documented as of this encounter Visit Diagnoses Not on filedocumented in this encounter Care Teams Exceptional Children Teacher Assistant Relationship Specialty Start Date End Date Fred Jameson PA [address] [place] [address] PCP - General Physician Secondary English Teacher 12/11/23 Tadeo Nieves PA-C [address] [facility] [address] floor [place], [place] [id number] Physician Secondary English Teacher 01/27/23 documented as of this encounter
--- OUTSIDE RECORDS SUMMARY | 2025-05-01 09:28 | XMS_ITS | Continuity of Care Document ---
Author Organization [facility] Address [address] [place] [address] Care Team Providers Care Necktie Stitcher Name Role Phone PRABHAKAR MONTELONGO Primary Care Provider CAESAR MONTELONGO Referring Provider Assessment No assessment recorded. Plan of Treatment Reminders Order Date Submit Date Provider Last Modified By Organization Details Last Modified Time Details Appointments None recorded. Lab None recorded. Referral None recorded. Procedures None recorded. Surgeries None recorded. Imaging None recorded. Medication Orders tramadol 50 mg tablet 2024 025 [place] [facility], [address] [place], [address], 5 09:33:01 Ozempic 0.25 mg or 0.5 mg (2 mg/3 mL) subcutaneou s pen injector [address], [address], 5 08:32:12 Patient TargetsNo targets recorded. Patient InstructionsNo instructions recorded. Reason for Referral None Reported. Problems Name Problem SNOMED Code Status Onset Date Resolution Date Notes Provider Name and Address Organization Details Recorded Time Morbid obesity 949474134 Active [address]EE [address] [place] [address],[facility] [address], [place], [address] , [facility] & [place] 4 08:20:57 Meeks's esophagus 776263528 Active 2023 TAMMI YEE [facility] [employer],[address], [place], [address] , [place] - [facility] - [place] & [place] 4 08:24:25 Pain of multiple joints 71096731 Active 2023 TAMMI YEE [facility] [employer] [facility],[employer] [facility], [place], [address] , [place] [facility] [place] & [place] 4 16:38:30 Chronic kidney disease stage 3 537670653 Active 2023 TAMMI YEE [facility] [employer] [facility],[employer] [address], [place], [address] , [place] [facility] [place] & [place] 4 12:06:37 Chest pain 04937972 Active Kenia avila, [place] [facility] - [place] & [place] 5 15:37:19 History of cardiac catheteriz ation 4378140051712 0 Active Kenia Lyn null, [place] [facility] & [place] 5 15:37:19 Hypertroph ic condition of skin 75150273 Active 2024 TAMMI YEE [facility] [employer] [facility],[address], [place], [address] , [place] [facility] [place] & [place] 5 16:29:38 Skin lesion 73633903 Active 2024 TAMMI YEE [facility] [employer],[facility] [address], [place], [address] , [place] [facility] [place] & [place] 5 16:29:46 Lumbar radiculopa thy 747155694 Active 2024 TAMMI YEE [facility] [employer],[facility] [address], [place], [address] , [place] [facility] [place] & [place] 5 10:59:56 Cough 20563517 Active 2021 Not Available [facility] 3 16:33:34 Acute upper respirator y infection 93332079 Active 2021 Not Available [facility] 3 16:33:34 Candidiasi s of mouth 39202671 Active 2021 Not Available [facility] 3 16:33:34 Acquired hypothyroi dism 584416684 Active 2022 Not Available [facility] 3 16:33:33 Depressive disorder 97323333 Active 2022 Not Available [facility] 3 16:33:34 Chronic obstructiv e pulmonary disease 65099595 Active 2022 Not Available [facility] 3 16:33:33 Vitamin D deficiency 12715029 Active 2022 Not Available [facility] 3 16:33:34 Anemia 133775830 Active 2022 Not Available [facility] 3 16:33:34 Iron deficiency 43220548 Active 2022 Not Available [facility] 3 16:33:34 Sleep pattern disturbanc e 53951401 Active 2022 Not Available [facility] 3 16:33:34 Daytime somnolence 186733144911 Active 2022 Not Available [facility] 3 16:33:33 Type 2 diabetes mellitus without complicati on 206533716 Active 2022 Not Available [facility] 3 16:33:34 Chronic fatigue syndrome 84493164 Active 2022 Not Available [facility] 3 16:33:34 Nausea 813385233 Active 2022 Not Available [facility] 3 16:33:34 Hypersomni a 56344130 Active 2022 Not Available [facility] 3 16:33:34 Obstructiv e sleep apnea of adult 0512409339586 Active 2022 Not Available [facility] 3 16:33:33 Poor short-term memory 386904654 Active 2022 Not Available [facility] 3 16:33:34 Prolapsed lumbar interverte bral disc 862815088 Active 2022 Not Available [facility] 3 16:33:33 Hypoxemia 490021758 Active 2022 Not Available [facility] 3 16:33:34 Dyspnea on exertion 72184103 Active 2022 Not Available [facility] 3 16:33:34 Hypomagnes emia 897629175 Active 2022 Not Available [facility] 3 16:33:33 Obstructiv e sleep apnea syndrome 64751805 Active 2022 Not Available [facility] 3 16:33:34 Severe recurrent major depression without psychotic features 52476706 Active 2022 Not Available [facility] 3 16:33:34 Uncontroll ed type 2 diabetes mellitus 115650742 Active 2022 Not Available [facility] 3 16:33:34 Body fluid retention 34997299 Active 2022 Not Available [facility] 3 16:33:34 Heart murmur 93421285 Active 2022 Not Available [facility] 3 16:33:34 Tight chest 80701320 Active 2022 Not Available [facility] 3 16:33:33 Tobacco dependence syndrome 68819073 Active 2022 Not Available [facility] 3 16:33:34 Diastolic dysfunctio n 1061971 Active 2022 Not Available [facility] 3 16:33:34 Angina pectoris 576748430 Active 2022 Not Available [facility] 3 16:33:33 Cardiovasc ular stress test abnormal 388637465 Active 2022 Not Available [facility] 3 16:33:34 Essential hypertensi on 27274033 Active 2022 Not Available [facility] 3 16:33:34 Coronary arterioscl erosis 72119589 Active 2022 Not Available [facility] 3 16:33:34 Iron deficiency anemia 13504096 Active 2022 Not Available [facility] 3 16:33:34 Increased frequency of urination 820712765 Active 2022 Not Available [facility] 3 16:33:33 Mixed urinary incontinen ce 538512992 Active 2022 Not Available [facility] 3 16:33:34 Edema of lower extremity 437512406 Active 2022 Not Available [facility] 3 16:33:33 Hyperlipid emia 29362096 Active 2022 Not Available [facility] 3 16:33:34 Acute laryngitis 0253537 Active 2022 Not Available [facility] 3 16:33:34 Acute urinary tract infection 672056932 Active 2022 Not Available [facility] 3 16:33:34 Intermitte nt claudicati on 88364962 Active 2022 Not Available [facility] 3 16:33:34 Peripheral vascular disease 631649141 Active 2023 Nghia Limon NP [address] [facility],[address] [place] [address], [address] , [place] [facility] & [place] 4 16:01:24 Fever 987519537 Active 2023 Charla avila, [place] [facility] [place] & [place] 4 08:08:21 Nausea and vomiting 09981603 Active 2023 TAMMI YEE [address] [employer], [place], [address] , [place] [facility] - [place] & [place] 4 08:40:57 Hypokalemi a 52001878 Active 2023 TAMMI YEE [address] [facility],[address], [place], [address] , [place] [facility] & [place] 4 07:41:27 Altered bowel function 44163211 Active [address]23 [address] YEE [address] [place] [address],[address], [place], [address] , [place] [facility] & [place] 4 14:47:38 Kidney stone 48608997 Active [address]EE [address] [place] [address],[address], [place], [address] , [place] [facility] - [facility] & [place] 4 10:54:55 Nasal congestion 34929737 Active 2023 Charla Velasquez null, [place] [facility] [place] & [place] 4 10:16:38 Environmen sumit allergy 812383447 Active [address]EE [address] [place] [address],[address], [place], [address] , [place] [facility] & [place] 4 11:07:23 Leukocytos is 910499015 Active [address]EE [address] [place] [address],[address], [place], [address] , [place] [facility] - [facility] & [place] 4 13:17:07 Folic acid deficiency 052751005 Active 2023 [address]MI YEE [address] [place] [address],[address], [place], [address] , [place] [facility] - [facility] & [place] 4 16:27:03 Problem Notes None recorded. Procedures Surgical History Date Name Laterality Status Provider Name and Address Organization Details Recorded Time 024 Medicare Annual Wellness Visit Health Risk Assessment completed Charla Velasquez [place] [facility] [facility] & [place] 10/24/2024 16:07:03 023 Medicare Annual Wellness Visit Health Risk Assessment completed Claudia Stone [place] - [facility] - [facility] & [place] 10/11/2023 11:06:58 023 LEFT HEART CATHETERIZATION (SURG) completed Nghia Limon NP [address] [place] [address],[address], [place], [address], [place] [facility] - [facility] & [place] 2023 09:50:14 022 completed Claudia TSAI [facility] & [place] 10/11/2023 10:53:06 procedure on kidney completed Lizeth schwab [facility] & [place] 03/04/2024 14:04:42 hysterectomy completed February Velasquez [facility] & [place] 09/27/2022 14:26:07 cholecystectomy completed February Ron TSAI [facility] & [place] 09/27/2022 14:26:17 Back Surgery completed February Ron TSAI [facility] & [place] 09/27/2022 14:26:38 ureterorenoscopy with fragmentation and removal of calculus of kidney completed February Velasquez QUIN [facility] & [place] 09/27/2022 14:27:06 removal of ectopic fetus completed February [facility] & [place] 09/27/2022 14:27:24 Imaging Results None recorded. Procedure Notes None recorded. Medical Equipment None Reported. Allergies Allergen ID Allergen Name Allergen Category Reaction Reaction Severity Criticality Documentation Date Start Date Code Code System Note Provider Name and Address Organization Details Recorded Time 46577 No known allergy (situatio n) Not available Not available Not available Not available 09/07/2023 [id number] SNOMED Claudia avila, [facility] & [place] 11:00:03 No known drug allergies Medications Name Sig Start Date Stop Date Status Note LastModified by Organization Details LastModified Time folic acid 400 mcg tabs TAKE 1 TABLET BY MOUTH ONCE DAILY. 09/27 completed Not Available Not Available Not Available fluoxetine 40 mg capsule TAKE 1 CAPSULE BY MOUTH ONCE DAILY 09/27 completed Not Available Not Available Not Available cyclobenzap rine 10 mg tablet TAKE 1 TABLET BY MOUTH THREE TIMES DAILY 06/29 completed Not Available Not Available Not Available promethazin e-DM 6.25 mg-15 mg/5 mL oral syrup Take 5 mL every 4 hours by oral route. 02/23 completed Not Available Not Available Not Available atorvastati n 80 mg tablet Take 1 tablet every day by oral route. 2024 active Not Available Not Available Not Avai lable nystatin 100,000 unit/mL oral suspension TAKE 5 ML BY MOUTH 4 TIMES A DAY FOR 10 DAYS. 12/22 completed Not Available Not Available Not Available venlafaxine ER 75 mg capsule,ext ended release 24 hr TAKE 1 CAPSULE BY MOUTH ONCE DAILY 08/30 completed Not Available Not Available Not Available nitrofurant oin macrocrysta l 50 mg capsule TAKE 1 CAPSULE BY MOUTH 2 (TWO) TIMES A DAY. START TAKING UNTIL SURGERY 01/17 completed Not Available Not Available Not Available doxycycline hyclate 100 mg capsule Take 1 capsule twice a day by oral route. 02/23 completed Not Available Not Available Not Available ipratropium 0.5 mg-albutero l 3 mg (2.5 mg base)/3 mL nebulizatio n soln INHALE 1 NEB BY MOUTH EVERY 6 HOURS 01/08 completed Not Available Not Available Not Available torsemide 20 mg tablet Take 1 tablet every day by oral route for 90 days. 2024 active Not Available Not Available Not Avai lable Venofer 100 mg iron/5 mL intravenous solution infuse 100 mg of Venofer 1 time dose in normal saline per protocol 12/16 completed Not Available Not Available Not Available trazodone 50 mg tablet 1 tablet daily 2024 active Not Available Not Available Not Avai lable oxybutynin chloride ER 10 mg tablet,exte nded release 24 hr Take 1 tablet every day by oral route as directed for 10 days. 04/18 completed Not Available Not Available Not Available azithromyci n 250 mg tablet TAKE 2 TABLETS BY MOUTH THE FIRST DAYS DOSE, THEN TAKE 1 TABLET DAILY FOR 4 MORE DAYS. 02/24 completed Not Available Not Available Not Available ondansetron HCl 8 mg tablet DISSOLVE 1 TABLET UNDER THE TONGUE 3 TIMES DAILY NEEDED 09/25 completed Not Available Not Available Not Available Synthroid 125 mcg tablet TAKE ONE TABLET BY MOUTH EVERY DAY 07/02 completed Not Available Not Available Not Available glipizide 10 mg tablet 1 tablet twice daily 2024 active Not Available Not Available Not Avai lable prednisone 20 mg tablet TAKE 3 TABLETS BY MOUTH DAILY FOR 2 DAYS, 2 TABLETS DAILY FOR 2 DAYS THEN 1 TABLET DAILY FOR 2 DAYS 09/25 completed Not Available Not Available Not Available methylpredn isolone 4 mg tablet 09/27 completed Not Available Not Available Not Available Accu-Chek Softclix Lancets USE TO TEST THREE TIMES DAILY. active Not Available Not Available No t Available clopidogrel 75 mg tablet Take 1 tablet every day by oral route for 90 days. 2024 active Not Available Not Available Not Avai lable fexofenadin e 180 mg tablet Take 1 tablet every day by oral route. 12/11 completed Not Available Not Available Not Available ciprofloxac in 500 mg tablet TAKE 1 TABLET MY MOUTH TWICE A DAY 10 DAYS 09/27 completed Not Available Not Available Not Available folic acid 400 mcg tablet TAKE 1 TABLET BY MOUTH DAILY. 12/11 completed Not Available Not Available Not Available sulfamethox azole 800 mg-trimetho prim 160 mg tablet TAKE 1 TABLET BY MOUTH TWICE DAILY. START 7 DAYS BEFORE SURGERY 03/04 completed Not Available Not Available Not Available aspirin 81 mg tablet,anastacia yed release Take 81 mg every day by oral route. active Not Available Not Available No t Available tramadol 50 mg tablet TAKE 1 TABLET BY MOUTH EVERY 6 HOURS NEEDED, FOR PAIN. active Not Available Not Available No t Available ondansetron 8 mg disintegrat ing tablet DISSOLVE ONE TABLET BY MOUTH THREE TIMES A DAY NEEDED active Not Available Not Available No t Available Celebrex 200 mg capsule Take 1 capsule every day by oral route. 2024 active Not Available Not Available Not Avai lable ceftriaxone 1 gram solution for injection Take 1 g by injection route for 1 day. 10/24 completed Not Available Not Available Not Available citalopram 20 mg tablet 1.5 tablet once daily 2024 active Not Available Not Available Not Avai lable tamsulosin 0.4 mg capsule Take 1 capsule every day by oral route as directed. 04/18 completed Not Available Not Available Not Available OneTouch Ultra Test strips test glucose three times daily active Not Available Not Available No t Available benzonatate 100 mg capsule TAKE 1 CAPSULE BY MOUTH THREE TIMES DAILY NEEDED 12/23 completed Not Available Not Available Not Available cephalexin 500 mg capsule TAKE 1 CAPSULE EVERY 12 HOURS 12/07 completed Not Available Not Available Not Available pantoprazol e 40 mg tablet,anastacia yed release Take 1 tablet by oral route at noon for 90 days. 2024 active Not Available Not Available Not Avai lable promethazin e 25 mg tablet TAKE (1) TABLET BY MOUTH EVERY FOUR HOURS NEEDED. active Not Available Not Available No t Available nitroglycer in 0.[address] 1 tablet as needed by sublingua l route. active Not Available Not Available No t Available diclofenac sodium 25 mg tablet,anastacia yed release active Not Available Not Available Not Available diclofenac sodium 75 mg tablet,anastacia yed release 75 mg by oral route. 09/05 completed Not Available Not Available Not Available folic acid 1 mg tablet Take 1 tablet every day by oral route. 12/11 completed Not Available Not Available Not Available montelukast 10 mg tablet Take 1 tablet every day by oral route. 2024 active Not Available Not Available Not Avai lable hydrochloro thiazide 25 mg tablet 1 tablet once daily 2024 active Not Available Not Available Not Avai lable Synthroid 112 mcg tablet TAKE 1 TABLET BY MOUTH EACH MORNING ON AN EMPTY STOMACH. 03/04 completed Not Available Not Available Not Available ergocalcife rol (vitamin D2) 1,250 mcg (50,000 unit) capsule Take 1 capsule twice a week by oral route for 90 days. 2024 active Not Available Not Available Not Avai lable dexamethaso ne sodium phosphate 4 mg/mL injection solution Inject 2 mL by intramusc ular route for 1 day. 10/24 completed Not Available Not Available Not Available levofloxaci n 500 mg tablet TAKE 1 TABLET BY MOUTH ONCE DAILY. 01/17 completed Not Available Not Available Not Available albuterol sulfate HFA 90 mcg/actuati on aerosol inhaler Inhale 2 puffs every 4 hours by inhalatio n route for 30 days. active Not Available Not Available No t Available ondansetron 4 mg disintegrat ing tablet Place 2 tablets twice a day by transling ual route. 01/17 completed Not Available Not Available Not Available cefdinir 300 mg capsule Take 1 capsule every 12 hours by oral route. 10/11 completed Not Available Not Available Not Available fluticasone propionate 50 mcg/actuati on nasal spray,suspe nsion [place] 1 spray twice a day by intranasa l route. active Not Available Not Available No t Available metformin ER 500 mg tablet,exte nded release 24 hr TAKE 1 TABLET BY MOUTH TWICE DAILY. 09/27 completed Not Available Not Available Not Available Augmentin 500 mg-125 mg tablet Take 1 tablet every 12 hours by oral route for 10 days. 12/23 completed Not Available Not Available Not Available glipizide 5 mg tablet TAKE 1 TABLET TWICE A DAY BY ORAL ROUTE. 08/30 completed Not Available Not Available Not Available folic acid 800 mcg tablet Take 1 tablet every day by oral route. 02/24 completed Not Available Not Available Not Available oxycodone 5 mg tablet 03/04 completed Not Available Not Available Not Available Synthroid 137 mcg tablet Take 1 tablet every day by oral route. 2024 active Not Available Not Available Not Avai lable aripiprazol e 5 mg tablet TAKE 1 TABLET BY MOUTH DAILY. 09/27 completed Not Available Not Available Not Available nitrofurant oin monohydrate /macrocryst als 100 mg capsule TAKE 1 CAPSULE BY MOUTH TWICE DAILY FOR 10 DAYS. MUST ADMINISTE R WITH A MEAL/FOOD 01/01 completed Not Available Not Available Not Available BD Ultra-Fine Mini Pen Needle 31 gauge x 3/16 USE DAILY DIRECTED. active Not Available Not Available No t Available ferrous gluconate 324 mg (38 mg iron) tablet Take 1 tablet every day by oral route for 30 days. 01/08 completed Not Available Not Available Not Available Lantus Solostar U-100 Insulin 100 unit/mL (3 mL) subcutaneou s pen INJECT 50 UNITS ONCE DAILY DIRECTED active Not Available Not Available No t Available Feraheme 510 mg/17 mL (30 mg/mL) intravenous solution Inject 510 mg by intraveno us route for 1 day. 02/23 completed Not Available Not Available Not Available Farxiga 10 mg tablet Take 1 tablet every day by oral route. 12/11 completed Not Available Not Available Not Available potassium chloride ER 20 mEq tablet,exte nded release Take 1 tablet every day by oral route. 02/24 completed Not Available Not Available Not Available Pristiq 25 mg tablet,exte nded release Take 2 tablets every day by oral route. 08/30 completed Not Available Not Available Not Available albuterol sulfate 90 mcg/actuati on breath activated powder inhaler Inhale 2 puffs every 4 hours by inhalatio n route. 12/23 completed Not Available Not Available Not Available Vraylar 1.5 mg capsule Take 1 capsule every day by oral route. 07/19 completed Not Available Not Available Not Available Ozempic 0.25 mg or 0.5 mg (2 mg/1.5 mL) subcutaneou s pen injector Inject 0.25 mg every week by subcutane ous route for 30 days. 12/11 completed Not Available Not Available Not Available Steglatro 15 mg tablet Take 1 tablet every day by oral route. 12/16 completed Not Available Not Available Not Available Xarelto 2.5 mg tablet Take 1 tablet twice a day by oral route. 12/11 completed Not Available Not Available Not Available OneTouch Ultra2 Meter USE DIRECTED. active Not Available Not Available No t Available OneTouch Delica Plus Lancet 33 gauge USE DIRECTED 3 TIMES DAILY. active Not Available Not Available No t Available Rybelsus 14 mg tablet TAKE 1 TABLET BY MOUTH DAILY. 06/29 completed Not Available Not Available Not Available Rybelsus 7 mg tablet Take 1 tablet every day by oral route. 02/23 completed Not Available Not Available Not Available Rybelsus 3 mg tablet TAKE ONCE DAILY DIRECTED. 09/27 completed Not Available Not Available Not Available Wegovy 0.25 mg/0.5 mL subcutaneou s pen injector INJECT 0.25 MG EVERY WEEK BY SUBCUTANE OUS ROUTE. 01/13 completed Not Available Not Available Not Available diclofenac potassium 25 mg tablet active Not Available Not Available Not Available Flowflex COVID-19 Antigen Home Test kit 12/23 completed Not Available Not Available Not Available citalopram 30 mg capsule Take 1 capsule every day by oral route. 06/29 completed Not Available Not Available Not Available Ozempic 0.25 mg or 0.5 mg (2 mg/3 mL) subcutaneou s pen injector INJECT 0.25 MG EVERY WEEK BY SUBCUTANE OUS ROUTE; THIS WILL LAST 56 DAYS active Not Available Not Available No t Available Vitals Date Recorded Body height Body mass index (BMI) Body weight Body temperature Oxygen saturation Oxygen saturation in Arterial blood by Pulse oximetry Heart rate Systolic blood pressure Diastolic blood pressure Provider Name and Address Organization Details Last Updated DateTime 5 165.1 cm 38.1 kg/m2 330012. 65 g 97.9 [degF] 94 % 94 % 76 /min 120 mm[Hg] 68 mm[Hg] Claudia Stone [facility] [place] 5 08:17:14 Social History Question Answer Notes LastModified by Organizat ion Details LastModified Time Tobacco Smoking Status Never Smoker Not Available [facility] 11/16/2023 16:33:35 Do You Have An Advance Directive? No [email or web address] Information not available 12/07/2023 What Is Your Level Of Caffeine Consumption? Moderate Information not available 01/01/2024 In General, Would You Say Your Health Is Fair Information not available 10/11/2023 How Would You Describe The Condition Of Your Mouth And Teeth including False Teeth Or Dentures? Fair Information not available 10/11/2023 In The Past 7 Days, How Many Servings Of Fruits And Vegetables Did You Typically Eat Each Day? (1 Serving = 1 Cup Of Fresh Vegetables, 1 2 Cup Of Cooked Vegetables, Or 1 Medium Piece Of Fruit. 1 Cup = Size Of A Baseball.) 0 Servings Per Day Information not available 10/11/2023 In The Past 7 Days, How Many Servings Of High Fiber Or Whole Grain Foods Did You Typically Eat Each Day? (1 Serving = 1 Slice Of 100% Whole Wheat Bread, 1 Cup Of Whole-grain Or High-fiber [id number] Cereal, 1 2 Cup Of Cooked Cereal Such As Oatmeal, Or 1 2 Cup Of Cooked Brown Rice Or Whole Wheat Pasta.) 0 Servings Per Day Information not available 10/11/2023 In The Past 7 Days, How Many Servings Of Fried Or High-fat Foods Did You Typically Eat Each Day? (Examples Include Fried Chicken, Fried Fish, [place], Y[place]uba [place], Potato Chips, [place] Chips, Doughnuts, Creamy Salad Dressings, And Foods Made With Whole Milk, Cream, Cheese, Or Mayonnaise.) 1-2 Servings Per Day Information not available 10/11/2023 In The Past 7 Days, How Many Sugar-sweetened (not Diet) Beverages Did You Typically Consume Each Day 5-6 Drinks Per Day Information not available 10/11/2023 Each Night, How Many Hours Of Sleep Do You Usually Get? Less Than 5 Hours Information not available 10/11/2023 Do You Snore Or Has Anyone Told You That You Snore? Yes Information not available 10/11/2023 In The Past 7 Days, How Often Have You [place] Sleepy During The Daytime? Always Information not available 10/11/2023 Do You Have Chronic Pain? Yes Information not available 10/11/2023 If Yes, Location Of Pain Lower Back Information not available 10/11/2023 In The Past 7 Days, How Would You Rate Your Pain? Moderate Pain(4-6) Information not available 10/11/2023 Are You In A Pain Management Program? No Information not available 10/11/2023 Do You Take Opioids For Your Pain? No Information not available 10/11/2023 How Often Is Stress A Problem For You In Handling Such Things As: Your Health, Your Finances, Your Family And Social Relationships, Your Work? Always Information not available 10/11/2023 How Often Do You Get The Social And Emotional Support You Need: Never Information no t available 10/11/2023 In The Past 7 Days, Did You Need Help From Others To Take Care Of Things Such As Laundry And Housekeep- Ing, Banking, Shopping, Using The Telephone, Food Preparation, Transportation, Or Taking Your Own Medications? No Information not available 10/11/2023 Do You Live Alone? No Information not available 10/11/2023 Does Your Home Have Any Fall Risks (un-level Floors, Unfastened Rugs, Poor Lighting, Etc)? No Information not available 10/11/2023 Do You Have A Medical Power Of Supercalender Operator? No [email or web address] Information not available 10/24/2024 What Was The Date Of Your Most Recent Tobacco Screening? 10/01/2023 CHART_MERGE Information not available 11/16/2023 What Is Your Relationship Status? Information not available 01/01/2024 Do You Use Your Seat Belt Or Car Seat Routinely? Yes Information not available 01/01/2024 Are You Sexually Active? Yes Information not available 01/01/2024 Are You Passively Exposed To Smoke? No CHART_MERGE Information no t available 11/16/2023 How Much Tobacco Do You Smoke? 0.5 PPD CHART_MERGE Information not available 11/16/2023 How Many Years Have You Smoked Tobacco? 35 CHART_MERGE Information not available 11/16/2023 Sex: Unknown Functional Status Question Answer Note LastModified by Organizat ion Details LastModified Time Do you use any illicit or recreational drugs? No CHART_MERGE Information not available 11/16/2023 What is your level of alcohol consumption? None CHART_MERGE Information not available 11/16/2023 Do you have transportation difficulties? No Information not available 01/01/2024 Are you able to care for yourself? Yes Information not available 01/01/2024 What is your exercise level? None CHART_MERGE Information not available 11/16/2023 Mental Status None recorded. Family History Relationship Description Onset Age of this Age Resolved Age Notes LastModified by Organization Details LastModified Time Mother Cerebrovascu lar accident CHART_MERGE Not available 1 01/17/2023 16:33:31 Mother Diabetes mellitus Not available 2024 08:06:23 Mother Essential hypertension Not available 07/2025 08:06:23 Father Diabetes mellitus Not available 2024 08:06:23 Father Essential hypertension Not available 07/2025 08:06:23 Medical History Condition Response Diabetes Y Arthritis Y High Cholesterol Y Congestive Heart Failure (CHF) Y Back Problems Y Thyroid Problems Y Hypertension Y COPD Y Gynecological History Statement/Question Response Menses Monthly N Abnormal Pap N 07/30/2022 Obstetrics History GPAL:G 0 P 0 0 0 0 Immunizations Vaccine Type Date Status Note Provider Nam e and Address Organization Details Recorded Time Influenza, split virus, quadrivalent, PF 1 completed Not Available [facility] 11/16/2023 16:33:36 Tdap 8 completed Not Available [facility] 11/16/2023 16:33:36 Influenza, split virus, quadrivalent, PF 3 completed TAMMI YEE [address] [facility],[address], [place], [address], [place] - [facility] & [place] 09/01/2023 09:03:47 Pneumococcal conjugate PCV 13 3 completed Tia Canales NP [address] [facility],[address], [place], [address], [place] [facility] & [place] 10/16/2023 09:13:17 Influenza, MDCK, trivalent, PF 4 completed Kenia avila, [place] [facility] & [place] 09/26/2024 08:58:38 Past Encounters Encounter ID Performer Location Encounter Start Date Encounter Closed Date Diagnosis/Indication Diagnosis SNOMED-CT Code Diagnosis ICD10 Code Diagnosis Note [id number] Keaton Keenan MD [address] [address] 03/12/2025 10:16:28 03/12/2025 11:00:34 Uncontrolled type 2 diabetes mellitus 122441363 E11.65 Chronic ob structive pulmonary disease 38116890 J44.9 Heart murmur 81488418 R0 1.1 Lumbar radiculopathy 128 474128 M54.16 [id number] Keaton Keenan MD [address] [address] 03/28/2025 08:06:11 03/28/2025 08:29:25 Lumbar radiculopathy 658490472 M54.16 Uncontroll ed type 2 diabetes mellitus 597760744 E11.65 Prolapsed lumbar intervertebral disc 959371055 M51.26 Edema of l ower extremity 513854967 R60.0 Diastolic dysfunction 35 91310 I51.9 Coronary arteriosclerosis 18514700 I25.10 Health Concerns Section Related Observation LastModified by Organization Detai ls LastModified Time None Recorded Concern Status LastModified by Organization Details LastModified Time None Recorded Payers Encounter Date Sequence Insurance Name Policy Number Policy Zapata Covered Member ID Zapata Member ID Guarantor Name 03/28/2025 1 [place]MEDICARE REPLACEMENT HMO) [id number] Lainey Becerril [id number] Laniey Becerril Notes Date Note Type Note Provider Name and Address Organization Details Recorded Time 03/28/2025 text/html patient presents today for evaluation. Has a history of chronic back pain. Currently she is taking tramadol and it is working well to control her pain. She uses it 2 to 3 times a day. She does need a refill. No side effects to medicines. She has a history of diabetes. We have used several different medicines in the past. Finally was able to get Ozempic approved for her. She has not had any glucose elevations greater than 175 since starting the medicines. This morning her glucose level was 116 at home prior to eating breakfast. No side effects to her medications. She does need a refill. Has history of hyperlipidemia. She is taking atorvastatin 80 mg daily. She has had cardiac stenting and is also on Plavix 75 mg. Occasionally she does have some lower extremity edema and uses torsemide to maintain that under control. No side effects to any of these medicines. No complaints of chest pain. No increased shortness of breath coughing or wheezing. She will be due for laboratory assessment next office visit. TAMMI YEE [address] [facility],[address], [place], [address], [place] - [place] & [place] 03/31/2025 07:34:50 OBGyn Episode No OBEpisode recorded.
--- OUTSIDE RECORDS SUMMARY | 2025-05-01 09:28 | XMS_ITS | Encounter Summary ---
Author Organization [facility] Address [address] [place] [address] Care Team Providers Care Railroad Car Checker Name Role Phone Tadeo Nieves PA-C Unavailable [phone] Fred Jameson Primary Care Provider Encounter Details Date Type Department Care Team (Late st Contact Info) Description 05/27/2020 Transcribed Document [facility] Family Medicine [address] [place] [id number] ProviderBettie MD [address] [place] [address] Social History Tobacco Use Types Packs/Day Years Used Date Smoking Tobacco: Never Assessed Comments Unknown Sex and Gender Information Value Date Recorded Sex Assigned at Not on file Legal Sex Female 5:15 PM CDT Gender Identity Not on file Sexual Orientation Not on file documented as of this encounter Miscellaneous Notes * Cerner Conversion Note - Bettie ProviderMD - 05/27/2020 2:35 PM CDT [facility] PreOp Summary Primary Physician: SIERRA MORRISON MD-SHASHI Finalized Date/Time: 05/28/20 10:58:02 Pt. Name: LAINEY BECERRIL SRIKANTH Dubois./Sex: 1970 Female Med Rec #: [id number] Physician: SIERRA MORRISON MD-SHASHI Financial #: [id number] Pt. Type: O Room/Bed: [facility]/ Admit/Disch: 05/27/20 10:31:00 - 05/28/20 09:46:00 Institution: [facility] PreOp Case Times Entry 1 In Preop 05/27/20 10:50:00 Ready for Holding n/a Room Patient Ready for 05/27/20 13:18:00 Surgery Patient Out of Preop 05/27/20 14:09:00 Patient Out of n/a Holding Room Last Modified By: ALVARO BROKOS 05/28/20 10:58:02 Madelyn PreOp Case Times Audit 05/28/20 10:58:02 Associate Professor Of Engineering: PB Modifier: [email or web address] <+> 1 Patient Out of Preop 05/27/20 13:18:58 Associate Professor Of Engineering: PB Modifier: HANLEYAR 1 <*> Patient Ready for Surgery 05/27/20 13:01:00 05/27/20 13:18:10 Associate Professor Of Engineering: PB Modifier: HANLEYAR <+> 1 Patient Ready for Surgery Finalized By: ALVARO BROOKS Document Signatures Signed By: ALVARO BROOKS 05/28/20 10:58 Electronically signed by Lalit [facility] Conversion Balancing Machine Operator Cerner at 03/07/2023 9:15 AM CDT documented in this encounter Plan of Treatment Not on file documented as of this encounter Visit Diagnoses Not on filedocumented in this encounter Care Teams Railroad Car Checker Relationship Specialty Start Date End Date Fred Jameson PA [address] [place] [address] PCP - General Physician Yard Hand 12/11/23 Tadeo Nieves PA-C [address] [facility] 2nd [place] [address] Physician Yard Hand 01/27/23 documented as of this encounter
--- OUTSIDE RECORDS SUMMARY | 2025-05-01 09:28 | XMS_ITS | Encounter Summary ---
Author Organization [facility] Address [address] [place] [id number] Care Team Providers Care Dental Ceramist Name Role Phone Tadeo Nieves PA-C Unavailable [phone] Caesar Montelongo Primary Care Provider Encounter Details Date Type Department Care Team (Late st Contact Info) Description 05/28/2020 Transcribed Document [facility] [place] [address] [place] [id number] ProviderBettie MD [address] [place] [id number] Social History Tobacco Use Types Packs/Day Years Used Date Smoking Tobacco: Never Assessed Comments Unknown Sex and Gender Information Value Date Recorded Sex Assigned at Not on file Legal Sex Female 5:15 PM CDT Gender Identity Not on file Sexual Orientation Not on file documented as of this encounter Miscellaneous Notes * Cerner Conversion Note - Bettie Romero MD - 05/28/2020 9:33 [place] [address] LAINEY BECERRIL :1970 Visit Time:05/27/2020 Your Visit Summary Your Care Team Admitting Physician - SIERRA MORRISON MD-SHASHI Attending Physician - SIERRA MORRISON MD-SHASHI Primary Care Physician - CAESAR MONTELONGO PA-[facility] Referring Physician - SIERRA MORRISON MD-ORT Your Diagnosis Arthritis At risk for sleep apnea Depression with anxiety DM (diabetes mellitus), Type II GERD (gastroesophageal reflux disease) HTN (hypertension) Hypoxemia, Postoperative Sacroiliitis, not elsewhere classified, Sacroiliitis, not elsewhere classified Status post right SI joint f Tobacco use disorder, continuous These Are Your Goals to go home today - Not met Discharge Vitals Temperature 36.7 ??C Heart Rate (Monitored) 90 Respiratory Rate 16 Blood Pressure 120/75 What to do next Instructions From Your Care Team Discharge Follow Up Instructions: Discharged to my office follow-up in approximately 10-14 days. See intake sheet for date of follow-up., Order Comment: CC sheet from my office which will have follow-up appointment time and date. Follow Up Instructions: If patient pain controlled, stable, ambulatory, may DC today,if not plan for tomorrow DCFollow up caroline't as written o [facility] Intake Sheet, Order Comment: Patient should be discharged from hospital soon as possible.-Best practices, 2-4 hours postop.Get patient medically stableAfter patient sit at bedside, practice sitting and standing, sitting and standing, and then ambulation protected weightbearing 50%. As soon as the patient can do this, the patient may be discharged home.Is slow to recover, delay in discharge may be indicated, do not discharge unless medically stable.Postoperative no reason for this patient to stay in bed all day and have rehabilitation late afternoon. Activity: 50 %-weightbearing, if can do this in recovery room a discharge from recovery room, Discharge Activity: Partial weight bearing, Order Comment: Patient is allowed to sit stand walk lay on the incision. Ice pack when necessary.May discharge from recovery room if goals have been met in which case patient does not need to go to the floor Diet: Discharge Diet: Regular diet as tolerated Wound/Incision Care Instructions: Keep operative site/wound clean and dry, keep waterproof dressing on until follow-up in office, Order Comment: Dressing is waterproof and has antibiotics in it patient does not have to take it off, we will remove during follow-up visit. May shower with waterproof dressing on daily. Showering/Bathing Instructions: May shower, patient has waterproof dressing, daily showering is encouraged with soap that kills germs Driving Restriction: mmay drive when pain is under control, and not taking any narcotic medication, and extremities are working normally Follow-Up Appointments Follow Up with SIERRA MORRISON MD-ORT When 06/03/2020 09:30 AM EDT Where: [address] [address]- Medications What How Much When Instructions Next Dose FLUoxetine 40 Milligram(s) Oral Every Day cyclobenzaprine (cyclobenzaprine 10 mg oral tablet) 1 Tablet(s) Oral Three Times A Day as needed for as needed for spasm hydroCHLOROthiazide (hydroCHLOROthiazide 25 mg oral tablet) 1 Tablet(s) Oral Every Day levothyroxine 112 Microgram(s) Oral Every Day omeprazole 20 Milligram(s) Oral Every Day pantoprazole (pantoprazole 40 mg oral delayed release tablet) 1 Tablet(s) Oral Every Day Take your medications faithfully. Do NOT skip medication. Do NOT stop taking medications without the direction of a physician. Carry a list of your medications with you at all times, and take this medication list with you to your first follow up visit. Report any side effects. Avoid herbal remedies unless discussed with your physician. As part of your treatment plan, your physician may have prescribed a limited course of a controlled substance. This medication may be given to help people with moderate or severe pain or for other medical conditions, but there are risks involved with treatment. Common side effects may include nausea, constipation, drowsiness, sweating, itching, dry mouth, and rash. More serious side effects may include cognitive and motor impairment, like problems with thinking, concentrating, alertness, and movement (e.g. slowed reflexes), and driving and operating heavy machinery can be dangerous. It is important for you to talk to your physician if you have these side effects or questions. These controlled substances can produce physical dependence and be habit-forming if taken for an extended period of time, which means that the body has gotten used to them and may experience withdrawal symptoms if they are abruptly stopped. Withdrawal symptoms can include runny nose, sweating, goose bumps, diarrhea, abdominal cramping, rapid heartbeat, difficulty sleeping, and nervousness. Please dispose of unused and medications per your retail pharmacy guidance. Allergies No Known Allergies Immunizations This Visit No Immunizations Found Education Materials What to expect after the Procedure: After the procedure, it is common to have: ??? Pain and swelling. ??? A small amount of blood or clear fluid coming from your incision for up to 7 days ??? It is normal to have a moderate amount of bleeding from the site of the drain that was pulled on the morning after surgery. You can hold pressure on the area for 3-5 minutes and cover with a bandage as needed. Diet: ??? Resume usual diet ??? No alcoholic beverages while taking pain medication ??? Drink 8-10 glasses of water a day to prevent constipation from pain medication ??? Increase fiber to help prevent constipation. Straining can cause increased pressure and pain in your incision area ??? Increase protein to promote healing Driving: ??? Do not drive until your health care provider approves. Ask your health care provider when it is safe to drive if you have an immobilizer on your knee. ??? Do not drive or operate heavy machinery while taking prescription pain medicine. ??? Do not drive for 24 hours if you received a sedative. Activity: ??? No strenuous activity ??? Avoid high-impact activities, including running, jumping rope, and jumping jacks. ??? Avoid sitting for a long time without moving. Get up and move around at least every few hours. ??? Keep legs elevated while seated and place surgery leg on 2-3 pillows, this will decrease swelling ??? Continue using walker until cleared by physical therapy Back Activity ??? Minimize bending, twisting, and lifting. Bathing: ??? May shower ??? Do not take baths, swim, or use a hot tub for one month after surgery. ??? You must be seated to shower until you are no longer using the walker Other: ??? Use ice therapy for 20-30 minutes at a time and leave off for 20-30 minutes at a time. Always keep a towel or cloth between the ice pack and your skin ??? Continue to use Incentive Spirometer 10 times an hour while awake for one month to help prevent pneumonia ??? Leave Aquacel in place until follow up appointment. If dressing becomes soiled or loose replace with dressings given at discharge. Contact a health care provider if: ??? You have more redness, swelling, or pain around your incision. ??? You have more fluid or blood coming from your incision. ??? Your incision or drain site feels warm to the touch. ??? You have pus or a bad smell coming from your incision. ??? You have a fever. ??? Your incision breaks open after your health care provider removes your sutures, skin glue, or adhesive tape. ??? Your prosthesis feels loose. ??? You have knee pain that does not go away. Get help right away if you have: ??? Pain or swelling in your calf or thigh ??? Shortness or breath or difficulty breathing ??? Chest Pain DVT: Blood Clot Blood clots are a common risk after an orthopedic surgery Symptoms: ??? Swelling of your leg or arm, especially if one side is much worse. ??? Warmth and redness of your leg or arm, especially if one side is much worse. ??? Pain in your arm or leg. If the clot is in your leg, symptoms may be more noticeable or worse when you stand or walk. ??? A feeling of pins and needles, if the clot is in the arm. The symptoms of a DVT that has traveled to the lungs (pulmonary embolism, PE) usually start suddenly and include: ??? Shortness of breath while active or at rest. ??? Coughing or coughing up blood or blood-tinged mucus. ??? Chest pain that is often worse with deep breaths. ??? Rapid or irregular heartbeat. ??? Feeling light-headed or dizzy. ??? Fainting. ??? Feeling anxious. ??? Sweating. There may also be pain and swelling in a leg if that is where the blood clot started. How is this prevented? Exercise regularly. For at least 30 minutes every day, engage in: ? Activity that involves moving your arms and legs. ? Activity that encourages good blood flow through your body by increasing your heart rate. ??? Exercise your arms and legs every hour during long-distance travel (over 4 hours). Drink plenty of water and avoid drinking alcohol while traveling. ??? Avoid sitting or lying in bed for long periods of time without moving your legs. ??? Maintain a weight that is appropriate for your height. Ask your health care provider what weight is healthy for you. ??? If you are a woman who is over 35 years of age, avoid unnecessary use of medicines that contain estrogen. These include control pills. ??? Do not smoke, especially if you take estrogen medicines. If you need help quitting, ask your health care provider. ??? Wear compression stockings (if told by your health care provider) to help prevent blood clots from forming. High Fiber/High Protein Diet High fiber foods: To prevent constipation ??? Grains Whole-grain breads. Multigrain cereal. Oats and oatmeal. Brown rice. Barley. Bulgur wheat. Millet. Bran muffins. Popcorn. [place] wafer crackers. ??? Vegetables Sweet potatoes. Spinach. Kale. Artichokes. Cabbage. Broccoli. Green peas. Carrots. Squash. ??? Fruits Berries. Pears. Apples. Oranges. Avocados. Prunes and raisins. Dried figs. ??? Meats and Other Protein Sources Omega, kidney, jasso, and soy beans. Split peas. Lentils. Nuts and seeds. ??? Dairy Fiber-fortified yogurt. ??? Beverages Fiber-fortified soy milk. Fiber-fortified orange juice. ??? Other Fiber bars. High-protein foods: To promote healing High-protein foods contain 4 grams (4 g) or more of protein per serving. They include: ??? Beef, ground sirloin (cooked) ??? 3 oz have 24 g of protein. ??? Cheese (hard) ??? 1 oz has 7 g of protein. ??? Chicken breast, boneless and skinless (cooked) ??? 3 oz have 13.4 g of protein. ??? Cottage cheese ??? 1/2 cup has 13.4 g of protein. ??? Egg ??? 1 egg has 6 g of protein. ??? Fish, filet (cooked) ??? 1 oz has 6???7 g of protein. ??? Garbanzo beans (canned or cooked) ??? 1/2 cup has 6???7 g of protein. ??? Kidney beans (canned or cooked) ??? 1/2 cup has 6???7 g of protein. ??? Bro (cooked) ??? 3 oz has 24 g of protein. ??? Milk ??? 1 cup (8 oz) has 8 g of protein. ??? Nuts (peanuts, pistachios, almonds) ??? 1 oz has 6 g of protein. ??? Peanut butter ??? 1 oz has 7???8 g of protein. ??? Pork tenderloin (cooked) ??? 3 oz has 18.4 g of protein. ??? Pumpkin seeds ??? 1 oz has 8.5 g of protein. ??? Soybeans (roasted) ??? 1 oz has 8 g of protein. ??? Soybeans (cooked) ??? 1/2 cup has 11 g of protein. ??? Soy milk ??? 1 cup (8 oz) has 5???10 g of protein. ??? Soy or vegetable kylee ??? 1 kylee has 11 g of protein. ??? [place] seeds ??? 1 oz has 5.5 g of protein. ??? Tofu (firm) ??? 1/2 cup has 20 g of protein. ??? Tuna (canned in water) ??? 3 oz has 20 g of protein. ??? Yogurt ??? 6 oz has 8 g of protein. Fall Prevention ??? Use night lights. ??? Install grab bars by the toilet and in the tub and shower. Do not use towel bars as grab bars. ??? Use non-skid mats or decals on the floor of the tub or shower. ??? If you need to sit down while you are in the shower, use a plastic, non-slip stool. ??? Keep the floor dry. Immediately clean up any water that spills on the floor. ??? Remove soap buildup in the tub or shower on a regular basis. ??? Remove throw rugs and other tripping hazards from the floor. ??? Place frequently used items in yuhd-ic-[id number] places ??? Keep electrical cables out of the way. ??? Do not leave any items on the stairs. ??? Make sure that there are handrails on both sides of the stairs. Fix handrails that are broken or loose. Make sure that handrails are as long as the stairways. ??? Check any carpeting to make sure that it is firmly attached to the stairs. Fix any carpet that is loose or worn. ??? Avoid having throw rugs at the top or bottom of stairways, or secure the rugs with carpet tape to prevent them from moving. ??? Wear closed-toe shoes that fit well and support your feet. Wear shoes that have rubber soles or low heels. ??? Use mobility aids as needed, such as canes, walkers, scooters, and crutches. ??? Turn on lights if it is dark. Replace any light bulbs that burn out. ??? Set up furniture so that there are clear paths. Keep the furniture in the same spot. ??? Be aware of any and all pets. ??? Review your medicines with your healthcare provider. Some medicines can cause dizziness or changes in blood pressure, which increase your risk of falling. Hand Washing You should wash your hands whenever you think they are dirty. You should also wash your hands: ??? After: ? Working or playing outside. ? Touching an animal or its toys or leash. ? Handling livestock. ? Using the bathroom. ? Using household senior nuclear medicine technologist or toxic chemicals. ? Touching or taking out the garbage. ? Touching anything dirty around your home. ? Handling soiled clothes or rags. ? Taking care of a sick child. This includes touching used tissues, toys, and clothes. ? Sneezing, coughing, or blowing your nose. ? Using public transportation. ? Shaking hands. ? Using a phone, including your mobile phone. ? Touching money. ??? Before and after: ? Preparing food. ? Feeding a baby or young child. ? Eating. ? Visiting or taking care of someone who is sick. ? Changing a diaper. ? Changing a bandage (dressing) or taking care of an injury or wound. ? Giving or taking medicine. If soap and clean water are not available, use an alcohol-based wipe, spray, or hand gel. Use a hand-sanitizing agent that contains at least 60% alcohol. If you are preparing food, hand sanitizers are not recommended as a substitute for hand washing. Walker Use To Walk With a Front-Wheeled Walker: 1. Slide your front-wheeled walker one step-length in front of you. Your toes should be farther forward than the back legs of your walker. 2. Hold on to the walker for support, and step your weaker (surgery) leg into the middle of the walker. 3. Step your stronger leg forward to land next to your weaker leg. 4. Repeat the process for each step. ??? Always keep both feet within the width of the walker's legs or wheels. ??? When using your walker, you should not feel like you need to lean forward or to the side to keep your hands on the handgrips. ??? Make sure you are following any weight-bearing instructions that your health care provider has given you. ??? Be careful not to let the walker get too far ahead of you as you walk. ??? If your walker does not glide well over carpet, consider cutting an X into two tennis balls and placing the balls over the back legs of your walker. How to use a walker on a curb or step To Use a Walker to Step Up: 1. Put all four legs of the walker on the curb or step. 2. Get your feet as close to the curb or step as you can. 3. Test the steadiness of the walker by pressing down on the handgrips. 4. If the walker is steady, press down on it with your hands as you step up with your stronger leg. 5. Step up with your weaker leg. To Use a Walker to Step Down: 1. Put all four legs of the walker on the surface that is lower than the curb or step. 2. Get your feet as close to the curb or step as you can. 3. Test the steadiness of the walker by pressing down on the handgrips. 4. If the walker is steady, press down on it with your hands as you step down with your weaker leg. 5. Step down with your stronger leg. acetaminophen and oxycodone (a SEET a MIN oh fen and OX i KOE done) Endocet 10/325, Endocet 2.5/325, Endocet 5/325, Endocet 7.5/325, Nalocet, Percocet, Primlev What is the most important information I should know about acetaminophen and oxycodone? MISUSE OF OPIOID MEDICINE CAN CAUSE ADDICTION, OVERDOSE, OR . Keep the medication in a place where others cannot get to it. An overdose of acetaminophen can damage your liver or cause . Call your doctor at once if you have pain in your upper stomach, loss of appetite, dark urine, or jaundice (yellowing of your skin or eyes). Taking opioid medicine during may cause life-threatening withdrawal symptoms in the . Fatal side effects can occur if you use opioid medicine with alcohol, or with other drugs that cause drowsiness or slow your breathing. Stop taking this medicine and call your doctor right away if you have skin redness or a rash that spreads and causes blistering and peeling. What is acetaminophen and oxycodone? Acetaminophen and oxycodone is a combination medicine used to relieve moderate to severe pain. Acetaminophen and oxycodone may also be used for purposes not listed in this medication guide. What should I discuss with my healthcare provider before taking acetaminophen and oxycodone? You should not use this medicine if you are allergic to acetaminophen or oxycodone, or if you have: ?? severe asthma or breathing problems; or ?? a blockage in your stomach or intestines. Tell your doctor if you have ever had: ?? breathing problems, sleep apnea; ?? liver disease; ?? a drug or alcohol addiction; ?? kidney disease; ?? a head injury or seizures; ?? urination problems; or ?? problems with your thyroid, pancreas, or gallbladder. If you use opioid medicine while you are , your baby could become dependent on the drug. This can cause life-threatening withdrawal symptoms in the baby after it is born. Babies born dependent on opioids may need medical treatment for several weeks. Do not breastfeed. This medicine can pass into breast milk and cause drowsiness, breathing problems, or in a nursing baby. How should I take acetaminophen and oxycodone? Follow all directions on your prescription label. Never take this medicine in larger amounts, or for longer than prescribed. An overdose can damage your liver or cause . Tell your doctor if you feel an increased urge to use more of this medicine. Never share this medicine with another person, especially someone with a history of drug abuse or addiction. MISUSE CAN CAUSE ADDICTION, OVERDOSE, OR . Keep the medicine in a place where others cannot get to it. Selling or giving away acetaminophen and oxycodone is against the law. Measure liquid medicine carefully. Use the dosing syringe provided, or use a medicine dose-measuring device (not a kitchen spoon). If you need surgery or medical tests, tell the doctor ahead of time that you are using this medicine. You should not stop using this medicine suddenly. Follow your doctor's instructions about tapering your dose. Store at room temperature away from moisture and heat. Keep track of your medicine. You should be aware if anyone is using it improperly or without a prescription. Do not keep leftover opioid medication. Just one dose can cause in someone using this medicine accidentally or improperly. Ask your pharmacist where to locate a drug take-back disposal program. If there is no take-back program, flush the unused medicine down the toilet. What happens if I miss a dose? Since this medicine is used for pain, you are not likely to miss a dose. Skip any missed dose if it is almost time for your next dose. Do not use two doses at one time. What happens if I overdose? Seek emergency medical attention or call the Poison Help line at . An overdose of acetaminophen and oxycodone can be fatal. The first signs of an acetaminophen overdose include loss of appetite, nausea, vomiting, stomach pain, sweating, and confusion or weakness. Later symptoms may include pain in your upper stomach, dark urine, and yellowing of your skin or the whites of your eyes. Overdose can also cause severe muscle weakness, pinpoint pupils, very slow breathing, extreme drowsiness, or coma. What should I avoid while taking acetaminophen and oxycodone? Avoid driving or operating machinery until you know how this medicine will affect you. Dizziness or drowsiness can cause falls, accidents, or severe injuries. Do not drink alcohol. Dangerous side effects or could occur. Ask a doctor or pharmacist before using any other medicine that may contain acetaminophen (sometimes abbreviated as APAP). Taking certain medications together can lead to a fatal overdose. What are the possible side effects of acetaminophen and oxycodone? Get emergency medical help if you have signs of an allergic reaction: hives; difficulty breathing; swelling of your face, lips, tongue, or throat. Opioid medicine can slow or stop your breathing, and may occur. A person caring for you should seek emergency medical attention if you have slow breathing with long pauses, blue colored lips, or if you are hard to wake up. In rare cases, acetaminophen may cause a severe skin reaction that can be fatal. This could occur even if you have taken acetaminophen in the past and had no reaction. Stop taking this medicine and call your doctor right away if you have skin redness or a rash that spreads and causes blistering and peeling. Call your doctor at once if you have: ?? noisy breathing, sighing, shallow breathing, breathing that stops during sleep; ?? a light-headed feeling, like you might pass out; ?? weakness, tiredness, fever, unusual bruising or bleeding; ?? confusion, unusual thoughts or behavior; ?? problems with urination; ?? liver problems--nausea, upper stomach pain, tiredness, loss of appetite, dark urine, milan-colored stools, jaundice (yellowing of the skin or eyes); or ?? low cortisol levels-- nausea, vomiting, loss of appetite, dizziness, worsening tiredness or weakness. Seek medical attention right away if you have symptoms of serotonin syndrome, such as: agitation, hallucinations, fever, sweating, shivering, fast heart rate, muscle stiffness, twitching, loss of coordination, nausea, vomiting, or diarrhea. Serious side effects may be more likely in older adults and those who are overweight, malnourished, or debilitated. Long-term use of opioid medication may affect fertility (ability to have children) in men or women. It is not known whether opioid effects on fertility are permanent. Common side effects include: ?? dizziness, drowsiness, feeling tired; ?? feelings of extreme happiness or sadness; ?? nausea, vomiting, stomach pain; ?? constipation; or ?? headache. This is not a complete list of side effects and others may occur. Call your doctor for medical advice about side effects. You may report side effects to FDA at 4-148-XSK-3078. What other drugs will affect acetaminophen and oxycodone? You may have breathing problems or withdrawal symptoms if you start or stop taking certain other medicines. Tell your doctor if you also use an antibiotic, antifungal medication, heart or blood pressure medication, seizure medication, or medicine to treat HIV or hepatitis C. Opioid medication can interact with many other drugs and cause dangerous side effects or . Be sure your doctor knows if you also use: ?? cold or allergy medicines, bronchodilator asthma/COPD medication, or a diuretic ('water pill'); ?? medicines for motion sickness, irritable bowel syndrome, or overactive bladder; ?? other narcotic medications--opioid pain medicine or prescription cough medicine; ?? a sedative like Valium--diazepam, alprazolam, lorazepam, Xanax, Klonopin, Versed, and others; ?? drugs that make you sleepy or slow your breathing--a sleeping pill, muscle relaxer, medicine to treat mood disorders or mental illness; ?? drugs that affect serotonin levels in your body--a stimulant, or medicine for depression, Parkinson's disease, migraine headaches, serious infections, or nausea and vomiting. This list is not complete. Other drugs may affect acetaminophen and oxycodone, including prescription and ionf-gsi-lwwfofy medicines, vitamins, and herbal products. Not all possible interactions are listed here. Where can I get more information? Your doctor or pharmacist can provide more information about acetaminophen and oxycodone. Remember, keep this and all other medicines out of the reach of children, never share your medicines with others, and use this medication only for the indication prescribed. Every effort has been made to ensure that the information provided by [employer]. ('[employer]') is accurate, up-to-date, and complete, but no guarantee is made to that effect. Drug information contained herein may be time sensitive. [employer] information has been compiled for use by healthcare practitioners and consumers in the [place] and therefore [employer] does not warrant that uses outside of the [place] are appropriate, unless specifically indicated otherwise. [employer] drug information does not endorse drugs, diagnose patients or recommend therapy. [employer] drug information is an informational resource designed to assist licensed healthcare practitioners in caring for their patients and/or to serve consumers viewing this service as a supplement to, and not a substitute for, the expertise, skill, knowledge and judgment of healthcare practitioners. The absence of a warning for a given drug or drug combination in no way should be construed to indicate that the drug or drug combination is safe, effective or appropriate for any given patient. [employer] does not assume any responsibility for any aspect of healthcare administered with the aid of information [employer] provides. The information contained herein is not intended to cover all possible uses, directions, precautions, warnings, drug interactions, allergic reactions, or adverse effects. If you have questions about the drugs you are taking, check with your doctor, nurse or pharmacist. Copyright 3754-0512 [employer]. Version: .. Revision Date: 12/11/2019. Emergency Awareness and Preventative Care STROKE is an EMERGENCY Every Minute Counts Act FAST and Check for these signs: FACE Does the face look uneven? ARM Does one arm drift down? SPEECH Does their speech sound strange? TIME Call at any sign of stroke Stroke Risk Factors Atrial Fibrillation (irregular heartbeat) Diabetes Family history of stroke Heart Disease Heavy alcohol use High Blood Pressure High Cholesterol Physical inactivity and obesity Smoking Cigarette Smoking The facts are clear, cigarette smoking will shorten your life. Smoking can cause many illnesses along the way. As a healthcare provider, we recommend that you stop smoking. Assistance with quitting is available by contacting 7-250-SZXRMeicanNOW. This is a free resource providing counseling, support, and referral. Or you may contact your personal physician. [employer] Suicide Prevention Lifeline: The National Suicide Prevention Lifeline is a national network of local crisis centers that provides free and confidential emotional support to people in suicidal crisis or emotional distress 24 hours a day, 7 days a week. Don't Wait! Stop a Heart Attack Before it Starts What is a heart attack? A heart attack is damage or to a part of the heart from severely decreased or lack of blood flow to the heart. Over time, arteries can become narrow from the buildup of fat and cholesterol, which is called plaque. The plaque can rupture causing a blood clot to form. When the blood clot forms, the artery can become severely narrowed or completely blocked, causing a heart attack. Heart attack is the leading cause of in the [place]. 85% of muscle damage occurs within the first 2 hours. Delay in the recognition of heart attack symptoms increases the chances of . Know the early symptoms of a heart attack: Nausea Feeling of fullness in chest Jaw Pain Pain that travels down one or both arms Fatigue/being tired Anxiety Back Pain Chest pressure, squeezing, or discomfort Shortness of breath Sweating, or a cold sweat Feeling of impending doom There are unusual signs of a heart attack, too! Women, the elderly, and diabetics may present with atypical symptoms: Fainting/dizziness Weakness Confusion Risk Factors for a Heart Attack Some heart disease risk factors, such as age and family history, cannot be changed. Others, like smoking and lack of exercise, can be changed. Smoking High Cholesterol High Blood Pressure Family History Obesity Age Gender (Males are at higher risk) Lack of Exercise Diabetes Diet Stress Excessive Alcohol Intake If you or someone you know is experiencing the signs and symptoms of a heart attack, DON???T DELAY. Call immediately and seek help. If someone collapses, perform CPR! Do not attempt to drive if you are having symptoms of heart attack. Hands-Only CPR Why Hands-Only CPR? Hands-Only CPR has been shown to be as effective as conventional CPR for cardiac arrests that occur outside of a hospital. Survival depends on immediately receiving CPR from someone nearby. How do you perform Hands-Only CPR? There are two easy steps: Call if you see a teen or adult collapse Push hard and fast in the center of the chest at a beat of 100 beats per minute. Save a life! 4 WAYS TO GET AHEAD OF SEPSIS SEPSIS is a MEDICAL EMERGENCY. Time matters! Infections put you and your family at risk for a life-threatening condition called sepsis. Sepsis is the body's extreme response to an infection. It is life-threatening, and without timely treatment, sepsis can rapidly lead to tissue damage, organ failure, and . Sepsis happens when an infection you already have-in your skin, lungs, urinary tract or somewhere else-triggers a chain reaction throughout your body. 1 PREVENT INFECTIONS Take good care of chronic conditions. Talk to your doctor about getting the recommended vaccines. 2 PRACTICE GOOD HYGIENE Wash your hands frequently. Keep cuts or open sores clean and covered until they are healed. 3 KNOW THE SYMPTOMS Confusion or disorientation Shortness of breath High heart rate Fever, shivering, or feeling very cold Extreme pain or discomfort Clammy or sweaty skin 4 ACT FAST Get medical care IMMEDIATELY if you suspect sepsis or if you have an infection that is not getting better or is getting worse. To learn more about sepsis and how to prevent infections, visit www.cdc.gov/sepsis. Test Results Laboratory or Other Results This Visit (last charted value for your 05/27/2020 visit) Hematology 05/28/2020 4:06 AM Hct: 39.2 % -- Normal range between ( 34.1 and 44.9 ) Hgb: 12.5 Gram/dL -- Normal range between ( 11.2 and 15.7 ) Urinalysis 05/27/2020 11:07 AM Urine Nitrite: Negative Urine Leukocyte Esterase: Negative Urine Appearance: Clear Urine Glucose Dipstick: Negative Urine Blood Dipstick: Small Urine Type: Clean Catch Urine Urobilinogen Dipstick: 0.2 EU/dL -- Normal range between ( 0.2 and 1.0 ) Urine Protein Dipstick: Negative Urine Color: Yellow Urine Ketones Dipstick: Negative Urine pH Dipstick: 7.0 -- Normal range between ( 6.0 and 8.0 ) Urine Bilirubin Dipstick: Negative Urine Specific [place]: 1.017 -- Normal range between ( 1.005 and 1.030 ) Microbiology 05/18/2020 1:04 PM Novel Coronavirus 2019: Negative General Chemistry 05/28/2020 4:06 AM Creatinine Level: 0.97 mg/dL -- Normal range between ( 0.55 and 1.02 ) Sodium Level: 137 mmol/L -- Normal range between ( 136 and 146 ) Potassium Level: 4.3 mmol/L -- Normal range between ( 3.5 and 5.1 ) Chloride Level: 100 mmol/L -- Normal range between ( 102 and 112 ) Carbon Dioxide Level: 30 mmol/L -- Normal range between ( 21 and 32 ) Anion Gap: 11 -- Normal range between ( 9 and 20 ) Bun/Creatinine: 18.6 -- Normal range between ( 8.0 and 20.0 ) Calcium Level: 8.8 mg/dL -- Normal range between ( 8.5 and 10.1 ) eGFR : >60 mL/min/1.73m2 eGFR NonAfrican: >60 mL/min/1.73m2 Glucose Level: 148 mg/dL -- Normal range between ( 74 and 106 ) Blood Urea Nitrogen: 18 mg/dL -- Normal range between ( 7 and 22 ) 05/27/2020 11:21 AM Glucose POC2: 97 mg/dL -- Normal range between ( 70 and 110 ) Diagnostic Radiology 05/27/2020 3:00 PM CR Fluoro in OR: CR Fluoro in OR Patient Name:JANETLAINEY I have received and understand this information and was given the opportunity to ask questions. Patient/Front Desk Receptionist Name: Patient/Front Desk Receptionist Signature: Relationship to Patient: Clinician/Hospital Front Desk Receptionist Signature: Date: documented in this encounter Plan of Treatment Not on file documented as of this encounter Visit Diagnoses Not on filedocumented in this encounter Care Teams Dental Ceramist Relationship Specialty Start Date End Date Caesar Monetlongo PA [address] [place] [address] PCP - General Physician Air Compressor Mechanic 12/11/23 Tadeo Nieves PA-C [address] [facility] [address]nd [place] [address] Physician Air Compressor Mechanic 01/27/23 documented as of this encounter
--- OUTSIDE RECORDS SUMMARY | 2025-05-01 09:28 | XMS_ITS | Referral Summary ---
Author Organization [employer] [facility] [employer] Address [address] [place] [address] Care Team Providers Care Lgsw Name Role Phone Tadeo Nieves PA-C Unavailable [phone] Fred Jameson Primary Care Provider Allergies No known active allergies Medications nitrofurantoin, macrocrystal-mo nohydrate, (MACROBID) 100 MG capsule Take 1 capsule (100 mg total) by mouth 2 (two) times daily. Active traZODone (DESYREL) 50 MG tablet Take 1 tablet (50 mg total) by mouth nightly. Active atorvastatin (LIPITOR) 80 MG tablet Take 1 tablet (80 mg total) by mouth daily. Active glipiZIDE (GLUCOTROL) 10 MG tablet Take 1 tablet (10 mg total) by mouth 2 (two) times daily before meals. Active pantoprazole (PROTONIX) 40 MG tablet Take 1 tablet (40 mg total) by mouth daily. Active hydroCHLOROthia zide (HYDRODIURIL) 25 MG tablet Take 1 tablet (25 mg total) by mouth daily. Active diclofenac (VOLTAREN) 75 MG EC tablet Take 1 tablet (75 mg total) by mouth 2 (two) times daily. Active torsemide (DEMADEX) 20 MG tablet Take 1 tablet (20 mg total) by mouth daily. Active aspirin 81 MG EC tablet Take 1 tablet (81 mg total) by mouth daily. Active levothyroxine (SYNTHROID, LEVOTHROID) 112 MCG tablet Take 1 tablet (112 mcg total) by mouth Every morning on an empty stomach. Active citalopram (CeleXA) 20 MG tablet Take 1 tablet (20 mg total) by mouth daily. Active clopidogreL (PLAVIX) 75 mg tablet Take 1 tablet (75 mg total) by mouth daily. Active nitroglycerin (NITROSTAT) 0.[address] 1 tablet (0.4 mg total) under the tongue every 5 (five) minutes as needed for Chest pain Put 1 pill under tongue every 5min as needed for chest pain.No more than 3 doses in 15min.Call 911 if pain unrelieved 5min after 1st dose. Active Social History Tobacco Use Types Packs/Day Years Used Date Smoking Tobacco: Every Day Cigarettes 0.5 35 Smokeless Tobacco: Never Tobacco Cessation:Ready to Q uit: Not Asked; Counseling Given: Not Answered Alcohol Use Standard Drinks/Week Comments Never 0 (1 standard drink = 0.6 oz pur e alcohol) Interpersonal Safety Answer Date Record ed Family or friends hurt you Not on file 12/02 Family or friends insult you Not on file Family or friends threaten you Not on file 0 12/02/2023 Family or friends scream or curse at you Not on file 12/02/2023 Housing Stability Answer Date Recorded Living situation today Not on file Living situation problems Not on file 2023 Family and Community Support Answer Neo e Recorded Help with Day to Day Activities Not on file 12/02/2023 Feeling Lonely or Isolated Not on file 12/02 Educational Attainment Answer Date Job rded Speak language other than Chinese at home Not on file 12/02/2023 Want help with school or training Not on file 12/02/2023 Depression Answer Date Recorded PHQ-2 Risk Not on file 12/02/2023 Disabilities Answer Date Recorded Difficulty concentrating Not on file 024 Difficulty doing errands alone Not on file 0 12/02/2023 Substance Use Answer Date Recorded Used prescription meds for non-medical reasons N ot on file 12/02/2023 Used illegal drugs past 12 months Not on file 12/02/2023 Comments Unknown Sex and Gender Information Value Date Recorded Sex Assigned at Not on file Legal Sex Female 5:15 PM CDT Gender Identity Not on file Sexual Orientation Not on file Last Filed Vital Signs Vital Sign Reading Time Taken Comments Blood Pressure 140/80 12/11/2023 2:14 PM EST Pulse - - Temperature - - Respiratory Rate - - Oxygen Saturation - - Inhaled Oxygen Concentration - - Weight 108.9 kg (240 lb) 12/11/2023 2:14 PM EST Height 165.1 cm (5' 5 ) 12/11/2023 2:14 PM EST Body Mass Index 39.94 12/11/2023 2:14 PM EST Plan of Treatment Not on file Insurance BLUE CROSS/BLUE SHIELD Care Teams Lgsw Relationship Specialty Start Date End Date Fred Jameson PA [address] [place], [place] [id number] PCP - General Physician Flat Knitter Helper 12/11/23 Tadeo Nieves PA-C [address] [facility] 2nd [place] [address] Physician Flat Knitter Helper 01/27/23
--- OUTSIDE RECORDS SUMMARY | 2025-05-01 09:28 | XMS_ITS | Encounter Summary ---
Author Organization [facility] Address [address] [place] [address] Care Team Providers Care Waxer Name Role Phone Tadeo Nieves PA-C Unavailable Fred Jameson Primary Care Provider Encounter Details Date Type Department Care Team (Late st Contact Info) Description 05/28/2020 Transcribed Document [facility] [place] Family Medicine [address] [place] [address] ProviderBettie MD [address] [place] [address] Social History Tobacco Use Types Packs/Day Years [...] Romero MD - 05/28/2020 9:33 AM CDT Patient: LAINEY BECERRIL Age: 49 years Sex: Female : 1970 Associated Diagnoses: None Author: MAY VIZCAINO, PharmD Discharge already finished. Patient upset because she thought see was going home last night. Pharmacy verified patient's allergies and home medication list with pharmacy records and are as follows: Home Medications (6) Active cyclobenzaprine 10 mg oral tablet 10 mg = 1 Tab, PRN, Oral, TID FLUoxetine 40 mg, Oral, Daily hydroCHLOROthiazide 25 mg oral tablet 25 mg = 1 Tab, Oral, Daily levothyroxine 112 mcg, Oral, Daily pantoprazole 40 mg oral delayed release tablet 40 mg = 1 Tab, Oral, Daily Metformin 500mg= 1 tab oral daily Vit D 50,000 oral weekly x 4 doses May Sutton PharmD. documented in this encounter Plan of Treatment Not on file documented as of this encounter Visit Diagnoses Not on filedocumented in this encounter Care Teams Waxer Relationship Specialty Start Date End Date Fred Jameson PA [address] [place] [address] PCP - General Physician Spray Unit Feeder 12/11/23 Tadeo Nieves PA-C [address] [facility] [address]nd [place] [address] Physician Spray Unit Feeder 01/27/23 documented as of this encounter
--- OUTSIDE RECORDS SUMMARY | 2025-05-01 09:28 | XMS_ITS | Encounter Summary ---
Author Organization [facility] Address [address] [place] [address] Care Team Providers Care Science Editor Name Role Phone Tadeo Nieves PA-C Unavailable [phone] Fred Jameson Primary Care Provider Encounter Details Date Type Department Care Team (Late st Contact Info) Description 05/27/[address] [facility] [place] [facility] [place] [address] ProviderBettie MD [address] [place] [address] Social History Tobacco Use Types Packs/Day Years Used Date Smoking Tobacco: Never Assessed Comments Unknown Sex and Gender Information Value Date Recorded Sex Assigned at Not on file Legal Sex Female 5:15 PM CDT Gender Identity Not on file Sexual Orientation Not on file documented as of this encounter Miscellaneous Notes * Cerner Conversion Note - Bettie ProviderMD - 05/27/2020 4:30 PM CDT Pain Assessment Entered On: 05/28/2020 3:20 EDT Performed On: 05/28/2020 3:31 EDT by Janna Cintron RN Intervention Information: acetaminophen-HYDROcodone Performed by Janna Cintron RN on 05/28/2020 02:31:00 EDT acetaminophen-HYDROcodone,1Tab Oral,Pain (Severe 7-10) Pain Assessment Pain Assessment : Follow-up assessment Pain Scale Goal : 3 Pain Scale Used : 0-10 Scale Janna Cintron RN - 05/28/2020 3:20 EDT Pain Scale Intensity : 3 Janna Cintron RN - 05/28/2020 3:20 EDT Image 4 - Images currently included in the form version of this document have not been included in the text rendition version of the form. documented in this encounter Plan of Treatment Not on file documented as of this encounter Visit Diagnoses Not on filedocumented in this encounter Care Teams Science Editor Relationship Specialty Start Date End Date Fred Jameson PA [address] [place] [address] PCP - General Physician Staffing Administrator 12/11/23 Tadeo Nieves PA-C [address] [facility] [address]nd [place] [address] Physician Staffing Administrator 01/27/23 documented as of this encounter
--- OUTSIDE RECORDS SUMMARY | 2025-05-01 09:28 | XMS_ITS | Encounter Summary ---
Author Organization [facility] [facility] Address [address] [place] [address] Care Team Providers Care Director Cardiology Name Role Phone Tadeo Nieves PA-C Unavailable [phone] Fred Jameson Primary Care Provider Encounter Details Date Type Department Care Team (Late st Contact Info) Description 05/27/2020 Transcribed Document [facility] [place] Family Medicine [address] [place] [address] ProviderBettie MD [address] [place] [address] Social History Tobacco Use Types Packs/Day Years Used Date Smoking Tobacco: Never Assessed Comments Unknown Sex and Gender Information Value Date Recorded Sex Assigned at Not on file Legal Sex Female 5:15 PM CDT Gender Identity Not on file Sexual Orientation Not on file documented as of this encounter Miscellaneous Notes * Cerner Conversion Note - Bettie Romero MD - 05/27/2020 7:39 PM CDT Patient: LAINEY BECERRIL Age: 49 years Sex: Female : 1970 Associated Diagnoses: At risk for sleep apnea; Hypoxemia, Postoperative; Status post right SI joint f; Arthritis; GERD (gastroesophageal reflux disease); HTN (hypertension); Depression with anxiety; Tobacco use disorder, continuous; DM (diabetes mellitus), Type II Author: WHITNEY PHILLIP MD-INT Date of admission 05/27/2020 Date of consult 05/27/2020 PCP , TAMMI Saunders Orthopedic and spine surgeon, Tristan Euceda MD Consulting physician, internal medicine, Whitney Phillip M.D. Reason for the consult, postoperative medical management Admission diagnosis 1???sacroiliitis 2???status post right S I Joint fusion 3???postop hypoxemia 4???at risk for sleep apnea 5???continuous tobacco use disorder 6???HTN 7???borderline DM 8???GERD 9???hypothyroidism 10???arthritis 11???depression/anxiety History of present illness: A pleasant 49 years old white female with a history of DM, HTN, hypothyroidism, JODY, continuous tobacco use disorder, Etc. in addition tos who is after medical clearance by her PCP underwent right SI joint fusion by Dr. Euceda. Postoperativly patient was hypoxemic and needed to be on 2 L of oxygen in spite she is not on any home oxygen. Currently patient is awake alert cooperative responsive under no acute distress and is answering questions appropriately. She is on oral pain medications as per Recommendations and her pain is well controlled. She is on DVT prophylaxis with SCUDs. She has no trouble with urination and her urine output is adequate. She is on scheduled bowel regimen. PT/OT onboard. She started on oral nutrition, initially on clear liquid diet which was advanced to a high-fiber diet and is tolerating well oral by mouth intake. She denies any chest pain, shortness of breath, diaphoresis nausea or vomiting. Review of Systems Constitutional: No fever, No chills. Eye: No visual disturbances. Ear/Nose/Mouth/Throat: No nasal congestion, No sore throat. Respiratory: No shortness of breath, No cough. Cardiovascular: No chest pain, No tachycardia. Gastrointestinal: No nausea, No vomiting, No abdominal pain. Genitourinary: No change in urine stream. Hematology/Lymphatics: No bleeding tendency. Endocrine: No polyuria, No cold intolerance, No heat intolerance. Immunologic: Negative. Musculoskeletal: Negative. Integumentary: wound stable covered w. clean dressing. Neurologic: No confusion, No numbness, No tingling, No headache. Psychiatric: No anxiety, No depression. All other systems are negative Health Status Allergies: No qualifying data available Current medications: Home Medications (6) Active cyclobenzaprine 10 mg oral tablet 10 mg = 1 Tab, PRN, Oral, TID FLUoxetine 40 mg, Oral, Daily hydroCHLOROthiazide 25 mg oral tablet 25 mg = 1 Tab, Oral, Daily levothyroxine 112 mcg, Oral, Daily omeprazole 20 mg, Oral, Daily pantoprazole 40 mg oral delayed release tablet 40 mg = 1 Tab, Oral, Daily , Medications (25) Active Scheduled: (7) ceFAZolin/D5w 2 Gram 50 mL, IV Piggyback, 1-Time cloNIDine 80 mcg + ketorolac 30 mg + ropivacaine 0.5% 25 mL + lidocaine 1% w/epi 1:100,000 23.2 mL 80 mcg 0.8 mL, IntraLesional, 1-Time FLUoxetine 40 mg, Oral, Daily hydrochlorothiazide 25 mg tab 25 mg 1 Tab, Oral, Daily levothyroxine 112 mcg tab 112 mcg 1 Tab, Oral, Daily nicotine 21 mg/24 hr patch 1 Patch, TransDermal, At Bedtime pantoprazole EC 40 mg tab 40 mg 1 Tab, Oral, Daily Continuous: (2) D5/LR 1,000 mL 1,000 mL, IntraVENous, 100 mL/Hr D5w/NaCl 0.45% 1,000 mL 1,000 mL, IntraVENous, 30 mL/Hr PRN: (16) acetaminophen/HYDROcodone 325/7.5 mg tab 1 Tab, Oral, Q4H al hydrox/mag hydrox/simeth 30 mL liq 30 mL, Oral, Q6H albuterol-ipratropium inh 3 mL 3 mL, Nebulized Inhalation, Q4H bisacodyl 10 mg supp 10 mg 1 Supp, Rectal, Daily cyclobenzaprine 10 mg tab 10 mg 1 Tab, Oral, TID diphenhydrAMINE 25 mg tab 25 mg 1 Tab, Oral, On-CALL docusate calcium 240 mg cap 240 mg 1 Cap, Oral, Daily magnesium hydroxide 8% liq 30 mL 15 mL, Oral, Q6H metaxalone 800 mg tab 800 mg 1 Tab, Oral, TID ondansetron 4 mg/2 mL inj 4 mg 2 mL, IV Push, Q4H phenol 1.4% throat spray 5 [place], Oral, Q2H promethazine 25 mg tab 12.5 mg 0.5 Tab, Oral, Q6H promethazine 25 mg/1 mL inj 12.5 mg 0.5 mL, IV Push, Q6H scopolamine 1.5 mg/72 hr patch 1 Patch, TransDermal, Q3Days traZODone 50 mg tab 50 mg 1 Tab, Oral, At Bedtime zolpidem 5 mg tab 5 mg 1 Tab, Oral, At Bedtime Problem list: Active Problems (6) Arthritis At risk for sleep apnea Depression with anxiety DM (diabetes mellitus) GERD (gastroesophageal reflux disease) HTN (hypertension) Histories Family History: family history significant for CAD, DM, and HTN Procedure history: hysterectomy. lithotripsy. ectopic . cholecystectomy. egd. excision of cyst on chest benign. right partial thyroidectomy. Social History patient is and has 3 children she smokes half a pack of cigarettes a day and denies drinking alcohol. Physical Examination VS/Measurements Vital Signs/Vital Measures 05/27/2020 16:35 EDT Systolic Blood Pressure 130 mmHg Diastolic Blood Pressure 76 mmHg Mean Arterial Pressure (MAP)-BMDI 89 Temperature Source Oral Temperature Mode Fahrenheit Temperature, Fahrenheit 98.4 Deg F Clinical Temperature, C 36.9 Deg C Heart Rate Monitored 89 bpm Respiratory Rate 17 Breaths/Min Oxygen Saturation 97 % Oxygen Therapy Mode Nasal cannula Oxygen Flow Rate 2 Liter/Min 05/27/2020 16:15 EDT Systolic Blood Pressure 118 mmHg Diastolic Blood Pressure 64 mmHg Mean Arterial Pressure (MAP)-BMDI 84 Heart Rate Monitored 87 bpm Respiratory Rate 20 Breaths/Min Oxygen Saturation 94 % Oxygen Therapy Mode Nasal cannula Oxygen Flow Rate 2 Liter/Min 05/27/2020 16:00 EDT Heart Rate Monitored 86 bpm Respiratory Rate 18 Breaths/Min Oxygen Saturation 94 % Oxygen Therapy Mode Nasal cannula Oxygen Flow Rate 2 Liter/Min 05/27/2020 15:55 EDT Systolic Blood Pressure 120 mmHg Diastolic Blood Pressure 68 mmHg Mean Arterial Pressure (MAP)-BMDI 85 Temperature Source Temporal artery scanning Temperature Mode Fahrenheit Temperature, Fahrenheit 97.5 Deg F Clinical Temperature, C 36.4 Deg C Heart Rate Monitored 87 bpm Respiratory Rate 18 Breaths/Min Oxygen Saturation 96 % Oxygen Therapy Mode Nasal cannula Oxygen Flow Rate 3 Liter/Min 05/27/2020 15:50 EDT Systolic Blood Pressure 121 mmHg Diastolic Blood Pressure 67 mmHg Mean Arterial Pressure (MAP)-BMDI 85 Heart Rate Monitored 93 bpm Respiratory Rate 17 Breaths/Min Oxygen Saturation 94 % 05/27/2020 15:45 EDT Systolic Blood Pressure 135 mmHg Diastolic Blood Pressure 71 mmHg Mean Arterial Pressure (MAP)-BMDI 89 Heart Rate Monitored 89 bpm Respiratory Rate 16 Breaths/Min Oxygen Saturation 97 % 05/27/2020 15:40 EDT Systolic Blood Pressure 133 mmHg Diastolic Blood Pressure 78 mmHg Mean Arterial Pressure (MAP)-BMDI 101 Heart Rate Monitored 92 bpm Respiratory Rate 17 Breaths/Min Oxygen Saturation 99 % 05/27/2020 15:35 EDT Systolic Blood Pressure 104 mmHg Diastolic Blood Pressure 69 mmHg Mean Arterial Pressure (MAP)-BMDI 84 Heart Rate Monitored 91 bpm Respiratory Rate 20 Breaths/Min Oxygen Saturation 94 % Oxygen Therapy Mode Nasal cannula Oxygen Flow Rate 3 Liter/Min 05/27/2020 15:30 EDT Systolic Blood Pressure 132 mmHg Diastolic Blood Pressure 82 mmHg Mean Arterial Pressure (MAP)-BMDI 100 Heart Rate Monitored 93 bpm Respiratory Rate 17 Breaths/Min Oxygen Saturation 93 % LOW 05/27/2020 15:25 EDT Heart Rate Monitored 100 bpm Respiratory Rate 17 Breaths/Min Oxygen Saturation 91 % LOW 05/27/2020 15:20 EDT Systolic Blood Pressure 147 mmHg HI Diastolic Blood Pressure 92 mmHg HI Mean Arterial Pressure (MAP)-BMDI 110 Temperature Source Temporal artery scanning Temperature Mode Fahrenheit Temperature, Fahrenheit 97.8 Deg F Clinical Temperature, C 36.6 Deg C Heart Rate Monitored 99 bpm Heart Rate Monitored 98 bpm Respiratory Rate 18 Breaths/Min Oxygen Saturation 93 % LOW Oxygen Therapy Mode Nasal cannula Oxygen Flow Rate 3 Liter/Min 05/27/2020 12:44 EDT Blood Pressure Location Arm, left upper Blood Pressure Source Non-Invasive BP Device Blood Pressure Position Sitting Systolic Blood Pressure 129 mmHg Diastolic Blood Pressure 78 mmHg Temperature Source Temporal artery scanning Temperature Mode Fahrenheit Temperature, Fahrenheit 98.4 Deg F Clinical Temperature, C 36.9 Deg C Pulse Method Pulse Oximetry Peripheral Pulse Rate 87 bpm Respiratory Rate 16 Breaths/Min Oxygen Saturation 95 % Oxygen Therapy Mode Room air Oxygen Therapy Mode Room air General: Alert and oriented, No acute distress. Eye: Pupils are equal, round and reactive to light, Normal conjunctiva, Vision unchanged. HENT: Normocephalic, Tympanic membranes are clear, Normal hearing, Oral mucosa is moist, No pharyngeal erythema, No sinus tenderness. Neck: Supple, Non-tender, No carotid bruit, No jugular venous distention, No lymphadenopathy, No thyromegaly. Respiratory: Lungs are clear to auscultation, Respirations are non-labored, Breath sounds are equal, Symmetrical chest wall expansion, No chest wall tenderness. Cardiovascular: Normal rate, Regular rhythm, No murmur, No gallop, Good pulses equal in all extremities, Normal peripheral perfusion, No edema. Gastrointestinal: Soft, Non-tender, Non-distended, Normal bowel sounds, No organomegaly. Genitourinary: No costovertebral angle tenderness, No inguinal tenderness, No urethral discharge, No lesions. Lymphatics: No lymphadenopathy neck, axilla, groin. Musculoskeletal: Normal range of motion, Normal strength, No tenderness, No swelling, No deformity, Normal gait. Integumentary: Warm, [place], Intact, No pallor, No rash, WOUND STABLE. Neurologic: Alert, Oriented, Normal sensory, Normal motor function, No focal deficits, Cranial Nerves II-XII are grossly intact, Normal deep tendon reflexes. Psychiatric: Cooperative, Appropriate mood & affect, Normal judgment, Non-suicidal. Review / Management Results review: Lab results 05/27/2020 13:07 EDT Potassium Level 3.8 mmol/L 05/27/2020 11:21 EDT Glucose POC2 97 mg/dL 05/27/2020 11:07 EDT Urine Type Clean Catch Urine Color Yellow Urine Appearance Clear Urine Specific [place] 1.017 Urine pH Dipstick 7.0 Urine Leukocyte Esterase Negative Urine Nitrite Negative Urine Protein Dipstick Negative Urine Glucose Dipstick Negative Urine Ketones Dipstick Negative Urine Urobilinogen Dipstick 0.2 EU/dL Urine Bilirubin Dipstick Negative Urine Blood Dipstick Small . Impression and Plan Diagnosis At risk for sleep apnea - Admitting, Medical. Hypoxemia, Postoperative - Admitting, Medical. Status post right SI joint f - Admitting, Medical. Arthritis - Admitting, Medical. GERD (gastroesophageal reflux disease) - Admitting, Medical. HTN (hypertension) - Admitting, Medical. Depression with anxiety - Admitting, Medical. Tobacco use disorder, continuous - Admitting, Medical. DM (diabetes mellitus), Type II - Admitting, Medical. Course: Plan/Respirex @ BS and encourage patient to use. Sleep apnea precautions if needed. C-pap at night if needed. Hold all BP meds if BSP < 130 MMHg. If SBP < 90 mmHg, you may give 500 ml NS IVF over one hour. ACT: CONSULT PT/OT as per Dr. estiven talbot. For urinary retention use bladder scanner, you may anchor FC. If no or low UOP you may give 250 mL NS IV over one hour. AM Labs BMP & Hgb/HCT. If pt. spikes fever > 101* F, encourage pt to use Respirex first, then you may give Tylenol 650 mg PO/MS x 1. If no response in 2 hours, you may get blood cx. x2, chest x-ray, sputum CX, S, gram stain x3, UA, C&S. Patient may have chloroseptic spray or throat lozenges for soar throat. DVT prophylaxis. If at any time the HGB is less than 8 type and cross then transfuse 2 units of PRBCs. Premedicate with Tylenol 650 mg PO and Benadryl 25mg PO. Electrolytes Replacement Protocol.NicoDerm patch 21 mg aily. Minimize narcotics. Fall risk precautions. Sleep apnea precautions. scheduled and when necessary nebs. Stress ulcer prophylaxis.. documented in this encounter Plan of Treatment Not on file documented as of this encounter Visit Diagnoses Not on filedocumented in this encounter Care Teams Director Cardiology Relationship Specialty Start Date End Date Fred Jameson PA [address] [place] [address] PCP - General Physician Distance Education Coordinator 12/11/23 Tadeo Nieves PA-C [address] [facility] 2nd floor [place], [place] [id number] Physician Distance Education Coordinator 01/27/23 documented as of this encounter
--- OUTSIDE RECORDS SUMMARY | 2025-05-01 09:28 | XMS_ITS | Encounter Summary ---
Author Organization [facility] [employer] Address [address] [place] [address] Care Team Providers Care Chip Drier Name Role Phone Tadeo Nieves PA-C Unavailable [phone] Fred Jameson Primary Care Provider Encounter Details Date Type Department Care Team (Late st Contact Info) Description 05/28/2020 Transcribed Document [facility] [place] Family Medicine [address] [place] [address] ProviderBettie MD [address] [place] [address] Social History Tobacco Use Types Packs/Day Years Used Date Smoking Tobacco: Never Assessed Comments Unknown Sex and Gender Information Value Date Recorded Sex Assigned at Not on file Legal Sex Female 5:15 PM CDT Gender Identity Not on file Sexual Orientation Not on file documented as of this encounter Miscellaneous Notes * Cerner Conversion Note - Bettie ProviderMD - 05/28/2020 9:51 AM CDT On Going Discharge Planning Entered On: 05/28/2020 9:52 EDT Performed On: 05/28/2020 9:51 EDT by NAS CATALAN, Care Management-Payroll Benefits Administrator Care Management Progress Note Discharge Arrangements : Patient Post-Acute Information Patient Name: LAINEY BECERRIL Gender: Female : [birth year] Age: 49 Years No Post-Acute Placement(s) Listed No Post-Acute Service(s) Listed No [place] Referral(s) Listed Discharge Options Discussed with Patient : DME Barriers to Discharge Identified : None identified Designation of Choice Signed : Yes Patient Offered Choice/Affiliations Explained : Yes List/Info Provided Pt/Fam/Support Person : Durable medical equipment Were Referrals Sent to Post Acute Providers : Yes NAS CATALAN, Care Management-Payroll Benefits Administrator - 05/28/2020 9:51 EDT Electronically signed by Lalit [facility] [place] [employer] Conversion Artifacts Conservator Cerner at 03/07/2023 9:42 AM CDT documented in this encounter Plan of Treatment Not on file documented as of this encounter Visit Diagnoses Not on filedocumented in this encounter Care Teams Chip Drier Relationship Specialty Start Date End Date Fred Jameson PA [address] [place] [address] PCP - General Physician Sand Miller 12/11/23 Tadeo Nieves PA-C [address] [facility] 2nd [place] [address] Physician Sand Miller 01/27/23 documented as of this encounter
--- OUTSIDE RECORDS SUMMARY | 2025-05-01 09:28 | XMS_ITS | Encounter Summary ---
Author Organization [facility] [employer] Address [address] [place] [address] Care Team Providers Care Kai Whakar[place]au Name Role Phone Tadeo Nieves PA-C Unavailable [phone] Fred Jameson Primary Care Provider Encounter Details Date Type Department Care Team (Late st Contact Info) Description 05/27/2020 Transcribed Document [facility] [place] [facility] [place] [id number] ProviderBettie MD [address] [place] [address] Social History Tobacco Use Types Packs/Day Years Used Date Smoking Tobacco: Never Assessed Comments Unknown Sex and Gender Information Value Date Recorded Sex Assigned at Not on file Legal Sex Female 5:15 PM CDT Gender Identity Not on file Sexual Orientation Not on file documented as of this encounter Miscellaneous Notes * Cerner Conversion Note - Bettie ProviderMD - 05/27/2020 12:54 PM CDT Nutrition Assessment Entered On: 05/28/2020 9:05 EDT Performed On: 05/28/2020 9:05 EDT by Riri Hale RD, KATJA Nutrition Assessment Nutrition Assessment Reason : Automatic referral Riri Hale RD, KATJA - 05/28/2020 9:04 EDT Nutrition Recommendations Dietitian Recommendations : (05/28) Consult rec'd for BMI >40. Pt admitted s/p SI joint fusion. Pt is on a regular diet eating 75% x 1 meal recorded. Labs and meds reviewed. No skin breakdown or GI issues noted. No nutritional concerns identified at this time. RD to rescreen in 7-10 days or available prn. Riri Hale, DELILAH, LD - 05/28/2020 9:04 EDT Electronically signed by Lalit [facility] Conversion Ophthalmology Technician Sonianer at 03/07/2023 9:29 AM CDT documented in this encounter Plan of Treatment Not on file documented as of this encounter Visit Diagnoses Not on filedocumented in this encounter Care Teams Kai Whakar[place]au Relationship Specialty Start Date End Date Fred Jameson PA [address] [place] [address] PCP - General Physician Patent Leather Sorter 12/11/23 Tadeo Nieves PA-C [address] [facility] 2nd [place] [address] Physician Patent Leather Sorter 01/27/23 documented as of this encounter
--- OUTSIDE RECORDS SUMMARY | 2025-05-01 09:28 | XMS_ITS | Encounter Summary ---
Author Organization [facility] [employer] Address [address] [place] [address] Care Team Providers Care Campus Interviews Intern Name Role Phone Tadeo Nieves PA-C Unavailable [phone] Fred Jameson Primary Care Provider [phone] Encounter Details Date Type Department Care Team (Late st Contact Info) Description 05/28/2020 Transcribed Document [facility] [place] [address] ProviderBettie MD [address] [place] [address] Social History Tobacco Use Types Packs/Day Years Used Date Smoking Tobacco: Never Assessed Comments Unknown Sex and Gender Information Value Date Recorded Sex Assigned at Not on file Legal Sex Female 5:15 PM CDT Gender Identity Not on file Sexual Orientation Not on file documented as of this encounter Miscellaneous Notes * Cerner Conversion Note - Historical ProviderMD - 05/28/2020 2:00 AM CDT Lumber Scaler Details Entered On: 05/28/2020 0:27 EDT Performed On: 05/28/2020 2:00 EDT by Janna Cintron, RN Order Details Transport Mode Order Detail : Wheelchair Isolation Precautions Order Detail : Standard Precautions Order Detail : 0 IV Order Detail : 1 Oxygen Order Detail : 0 Nurse Collect Order Detail : 0 Lift/Transfer : Independent Central Line Order Detail : No Room Service : Not Appropriate Arterial Line : No Janna Cintron, RN - 05/28/2020 0:27 EDT documented in this encounter Plan of Treatment Not on file documented as of this encounter Visit Diagnoses Not on filedocumented in this encounter Care Teams Campus Interviews Intern Relationship Specialty Start Date End Date Fred Jameson PA [address] [place] [address] PCP - General Physician Evaluation Engineer 12/11/23 Tadeo Nieves PA-C [address] [facility] 2nd floor [place], [place] [id number] Physician Evaluation Engineer 01/27/23 documented as of this encounter
--- OUTSIDE RECORDS SUMMARY | 2025-05-01 09:28 | XMS_ITS | Encounter Summary ---
Author Organization [facility] [employer] Address [address] [place] [id number] Care Team Providers Care Mobility Scooter Repairer Name Role Phone Tadeo Nieves PA-C Unavailable Fred Jameson Primary Care Provider Encounter Details Date Type Department Care Team (Late st Contact Info) Description 05/28/2020 Transcribed Document [facility] [place] [facility] [place], [place] [id number] ProviderBettie MD [address] [place] [id number] Social History Tobacco Use Types Packs/Day Years Used Date Smoking Tobacco: Never Assessed Comments Unknown Sex and Gender Information Value Date Recorded Sex Assigned at Not on file Legal Sex Female 5:15 PM CDT Gender Identity Not on file Sexual Orientation Not on file documented as of this encounter Miscellaneous Notes * Cerner Conversion Note - Bettie Romero MD - 05/28/2020 9:32 AM CDT Patient Education Materials Follows: What to expect after the Procedure: After the procedure, it is common to have: ?? Pain and swelling. ?? A small amount of blood or clear fluid coming from your incision for up to 7 days ?? It is normal to have a moderate amount of bleeding from the site of the drain that was pulled on the morning after surgery. You can hold pressure on the area for 3-5 minutes and cover with a bandage as needed. Diet: ?? Resume usual diet ?? No alcoholic beverages while taking pain medication ?? Drink 8-10 glasses of water a day to prevent constipation from pain medication ?? Increase fiber to help prevent constipation. Straining can cause increased pressure and pain in your incision area ?? Increase protein to promote healing Driving: ?? Do not drive until your health care provider approves. Ask your health care provider when it is safe to drive if you have an immobilizer on your knee. ?? Do not drive or operate heavy machinery while taking prescription pain medicine. ?? Do not drive for 24 hours if you received a sedative. Activity: ?? No strenuous activity ?? Avoid high-impact activities, including running, jumping rope, and jumping jacks. ?? Avoid sitting for a long time without moving. Get up and move around at least every few hours. ?? Keep legs elevated while seated and place surgery leg on 2-3 pillows, this will decrease swelling ?? Continue using walker until cleared by physical therapy Back Activity ?? Minimize bending, twisting, and lifting. Bathing: ?? May shower ?? Do not take baths, swim, or use a hot tub for one month after surgery. ?? You must be seated to shower until you are no longer using the walker Other: ?? Use ice therapy for 20-30 minutes at a time and leave off for 20-30 minutes at a time. Always keep a towel or cloth between the ice pack and your skin ?? Continue to use Incentive Spirometer 10 times an hour while awake for one month to help prevent pneumonia ?? Leave Aquacel in place until follow up appointment. If dressing becomes soiled or loose replace with dressings given at discharge. Contact a health care provider if: ?? You have more redness, swelling, or pain around your incision. ?? You have more fluid or blood coming from your incision. ?? Your incision or drain site feels warm to the touch. ?? You have pus or a bad smell coming from your incision. ?? You have a fever. ?? Your incision breaks open after your health care provider removes your sutures, skin glue, or adhesive tape. ?? Your prosthesis feels loose. ?? You have knee pain that does not go away. Get help right away if you have: ?? Pain or swelling in your calf or thigh ?? Shortness or breath or difficulty breathing ?? Chest Pain DVT: Blood Clot Blood clots are a common risk after an orthopedic surgery Symptoms: ?? Swelling of your leg or arm, especially if one side is much worse. ?? Warmth and redness of your leg or arm, especially if one side is much worse. ?? Pain in your arm or leg. If the clot is in your leg, symptoms may be more noticeable or worse when you stand or walk. ?? A feeling of pins and needles, if the clot is in the arm. The symptoms of a DVT that has traveled to the lungs (pulmonary embolism, PE) usually start suddenly and include: ?? Shortness of breath while active or at rest. ?? Coughing or coughing up blood or blood-tinged mucus. ?? Chest pain that is often worse with deep breaths. ?? Rapid or irregular heartbeat. ?? Feeling light-headed or dizzy. ?? Fainting. ?? Feeling anxious. ?? Sweating. There may also be pain and swelling in a leg if that is where the blood clot started. How is this prevented? ?? Exercise regularly. For at least 30 minutes every day, engage in: ? Activity that involves moving your arms and legs. ? Activity that encourages good blood flow through your body by increasing your heart rate. ?? Exercise your arms and legs every hour during long-distance travel (over 4 hours). Drink plenty of water and avoid drinking alcohol while traveling. ?? Avoid sitting or lying in bed for long periods of time without moving your legs. ?? Maintain a weight that is appropriate for your height. Ask your health care provider what weight is healthy for you. ?? If you are a woman who is over 35 years of age, avoid unnecessary use of medicines that contain estrogen. These include control pills. ?? Do not smoke, especially if you take estrogen medicines. If you need help quitting, ask your health care provider. ?? Wear compression stockings (if told by your health care provider) to help prevent blood clots from forming. High Fiber/High Protein Diet High fiber foods: To prevent constipation ?? Grains Whole-grain breads. Multigrain cereal. Oats and oatmeal. Brown rice. Barley. Bulgur wheat. Millet. Bran muffins. Popcorn. Grubbs wafer crackers. ?? Vegetables Sweet potatoes. Spinach. Kale. Artichokes. Cabbage. Broccoli. Green peas. Carrots. Squash. ?? Fruits Berries. Pears. Apples. Oranges. Avocados. Prunes and raisins. Dried figs. ?? Meats and Other Protein Sources [place], kidney, jasso, and soy beans. Split peas. Lentils. Nuts and seeds. ?? Dairy Fiber-fortified yogurt. ?? Beverages Fiber-fortified soy milk. Fiber-fortified orange juice. ?? Other Fiber bars. High-protein foods: To promote healing High-protein foods contain 4 grams (4 g) or more of protein per serving. They include: ?? Beef, ground sirloin (cooked) ??? 3 oz have 24 g of protein. ?? Cheese (hard) ??? 1 oz has 7 g of protein. ?? Chicken breast, boneless and skinless (cooked) ??? 3 oz have 13.4 g of protein. ?? Cottage cheese ??? 1/2 cup has 13.4 g of protein. ?? Egg ??? 1 egg has 6 g of protein. ?? Fish, filet (cooked) ??? 1 oz has 6???7 g of protein. ?? Garbanzo beans (canned or cooked) ??? 1/2 cup has 6???7 g of protein. ?? Kidney beans (canned or cooked) ??? 1/2 cup has 6???7 g of protein. ?? Bro (cooked) ??? 3 oz has 24 g of protein. ?? Milk ??? 1 cup (8 oz) has 8 g of protein. ?? Nuts (peanuts, pistachios, almonds) ??? 1 oz has 6 g of protein. ?? Peanut butter ??? 1 oz has 7???8 g of protein. ?? Pork tenderloin (cooked) ??? 3 oz has 18.4 g of protein. ?? Pumpkin seeds ??? 1 oz has 8.5 g of protein. ?? Soybeans (roasted) ??? 1 oz has 8 g of protein. ?? Soybeans (cooked) ??? 1/2 cup has 11 g of protein. ?? Soy milk ??? 1 cup (8 oz) has 5???10 g of protein. ?? Soy or vegetable kylee ??? 1 kylee has 11 g of protein. ?? [place] seeds ??? 1 oz has 5.5 g of protein. ?? Tofu (firm) ??? 1/2 cup has 20 g of protein. ?? Tuna (canned in water) ??? 3 oz has 20 g of protein. ?? Yogurt ??? 6 oz has 8 g of protein. Fall Prevention ?? Use night lights. ?? Install grab bars by the toilet and in the tub and shower. Do not use towel bars as grab bars. ?? Use non-skid mats or decals on the floor of the tub or shower. ?? If you need to sit down while you are in the shower, use a plastic, non-slip stool. ?? Keep the floor dry. Immediately clean up any water that spills on the floor. ?? Remove soap buildup in the tub or shower on a regular basis. ?? Remove throw rugs and other tripping hazards from the floor. ?? Place frequently used items in [id number]-id-xdjes places ?? Keep electrical cables out of the way. ?? Do not leave any items on the stairs. ?? Make sure that there are handrails on both sides of the stairs. Fix handrails that are broken or loose. Make sure that handrails are as long as the stairways. ?? Check any carpeting to make sure that it is firmly attached to the stairs. Fix any carpet that is loose or worn. ?? Avoid having throw rugs at the top or bottom of stairways, or secure the rugs with carpet tape to prevent them from moving. ?? Wear closed-toe shoes that fit well and support your feet. Wear shoes that have rubber soles or low heels. ?? Use mobility aids as needed, such as canes, walkers, scooters, and crutches. ?? Turn on lights if it is dark. Replace any light bulbs that burn out. ?? Set up furniture so that there are clear paths. Keep the furniture in the same spot. ?? Be aware of any and all pets. ?? Review your medicines with your healthcare provider. Some medicines can cause dizziness or changes in blood pressure, which increase your risk of falling. Hand Washing You should wash your hands whenever you think they are dirty. You should also wash your hands: ?? After: ? Working or playing outside. ? Touching an animal or its toys or leash. ? Handling livestock. ? Using the bathroom. ? Using household electron microprobe operator or toxic chemicals. ? Touching or taking out the garbage. ? Touching anything dirty around your home. ? Handling soiled clothes or rags. ? Taking care of a sick child. This includes touching used tissues, toys, and clothes. ? Sneezing, coughing, or blowing your nose. ? Using public transportation. ? Shaking hands. ? Using a phone, including your mobile phone. ? Touching money. ?? Before and after: ? Preparing food. ? [...] 4. Repeat the process for each step. ?? Always keep both feet within the width of the walker's legs or wheels. ?? When using your walker, you should not feel like you need to lean forward or to the side to keep your hands on the handgrips. ?? Make sure you are following any weight-bearing instructions that your health care provider has given you. ?? Be careful not to let the walker get too far ahead of you as you walk. ?? If your walker does not glide well [...] 5. Step down with your stronger leg. documented in this encounter Plan of Treatment Not on file documented as of this encounter Visit Diagnoses Not on filedocumented in this encounter Care Teams Mobility Scooter Repairer Relationship Specialty Start Date End Date Fred Jameson PA [address] [place] [address] PCP - General Physician Dust Collector Operator 12/11/23 Tadeo Nieves PA-C [address] [facility] [address]nd [place] [address] Physician Dust Collector Operator 01/27/23 documented as of this encounter
--- OUTSIDE RECORDS SUMMARY | 2025-05-01 09:28 | XMS_ITS | Encounter Summary ---
Author Organization [facility] [employer] Address [address] [place] [address] Care Team Providers Care Nitrocellulose Operator Name Role Phone Tadeo Nieves PA-C Unavailable [phone] Fred Jameson Primary Care Provider [phone] Encounter Details Date Type Department Care Team (Late st Contact Info) Description 05/27/2020 Transcribed Document [facility] [place] [facility] [place] [address] ProviderBettie MD [address] [place] [address] Social History Tobacco Use Types Packs/Day Years Used Date Smoking Tobacco: Never Assessed Comments Unknown Sex and Gender Information Value Date Recorded Sex Assigned at Not on file Legal Sex Female 5:15 PM CDT Gender Identity Not on file Sexual Orientation Not on file documented as of this encounter Miscellaneous Notes * Cerner Conversion Note - Bettie ProviderMD - 05/27/2020 10:29 AM CDT Admission History, Adult Entered On: 05/27/2020 17:22 EDT Performed On: 05/27/2020 17:19 EDT by Li Dennison RN Advance Directive Patient has Advance Directive *Q : No, patient refuses Advance Directive information Li Dennison RN - 05/27/2020 17:19 EDT Anesthesia/Transfusion History Family History of Anesthesia Reaction : No prior transfusion(s) Blood Transfusion Acceptable to Patient : Yes Transfusion History : Prior anesthesia without reaction Family History of Anesthesia Reaction : None Li Dennison RN - 05/27/2020 17:19 EDT Anticipated Discharge Needs Discharge To, Anticipated : Home Anticipated Discharge Needs at This Time : Outpatient follow-up Li Dennison RN - 05/27/2020 17:19 EDT Education Topics, Admission Orientation DCP GENERIC CODE Advance Directives : Verbalizes understanding Allergy Band Applied : Verbalizes understanding Assessment/Vital Signs : Verbalizes understanding Bed Control : Verbalizes understanding Call Light : Verbalizes understanding Confidentiality : Verbalizes understanding Diet/Room Service : Verbalizes understanding Fall Prevention : Verbalizes understanding Hand Hygiene : Verbalizes understanding Healthcare Provider Visit : Verbalizes understanding ID Band Applied : Verbalizes understanding Isolation Precautions : Verbalizes understanding Orientation to Room/Bathroom : Verbalizes understanding Patient Bill of Rights : Verbalizes understanding Patient Rights/Responsibilities : Verbalizes understanding Patient Safety : Verbalizes understanding Personal Privacy Code : Verbalizes understanding Rapid Response Initiated by Patient/Family : Verbalizes understanding Rounding : Verbalizes understanding Siderails use/risks : Verbalizes understanding Skin Precautions : Verbalizes understanding Smoking Policy : Verbalizes understanding Telemetry Monitoring : Verbalizes understanding Television/Phone : Verbalizes understanding Visiting Policy : Verbalizes understanding Li Dennison RN - 05/27/2020 17:19 EDT Functional Assessment Living Situation : Home [...] Special Services and Community Resources : None Li Dennison RN - 05/27/2020 17:19 EDT General Info Arrived From : Other: PACU Mode of Arrival on Unit : Bed Patient Arrival Date/Time : 05/27/2020 16:30 EDT Legal Guardian : Unaccompanied Want Family/Rep/Phys Notified of Admit : No Emergency Contact #1 : Siria Becerril Emergency Contact #1 Emergency Contact #1 Relationship : spouse Emergency Contact #2 : na Emergency Contact #2 Phone Number : na Emergency Contact #2 Relationship : na Information Obtained From : Patient Primary Language : Central [place] Preferred Communication Mode : Verbal Communication Barrier : None Classics Teacher Needed : No Objects to Sharing Info w Family : No Currently Lactating : No Status : Hysterectomy Li Dennison RN - 05/27/2020 17:19 EDT Fall Risk Scales ABCs Fall Injury Risk Identification : Bones ABC Fall Injury Risk : Moderate to high injury risk Injury Moderate to High Risk Interventions : Bed alarm on, Chair alarm on, Specialty low bed, Supervise toileting as indicated, Toileting schedule, Transport methods appropriate to patient, Wrist band (fall risk) on per policy DUNCAN Hx Falls Immediate/Within 3 Months : No Duncan Secondary Diagnosis : Yes DUNCAN Use of Ambulatory Aid : Bed rest/Nurse assist DUNCAN IV Therapy or IV Access : Yes Duncan Gait/Transferring : Normal, bedrest, immobile Duncan Mental Status : Oriented to own ability Duncan Fall Risk Score : 35 DUNCAN Fall Scale Risk Level : 25-45 Medium Risk [place] Fall Interventions : Adequate lighting, Assistive devices within reach, Bed in low position, Call device within reach, Fall prevention handout/education per facility policy, Frequent orientation to call device, Frequent orientation to surroundings, Hourly comfort/safety rounds, Non-slip footwear, Personal items within reach, Reinforced to call for assistance before getting out of bed, Room free of clutter/spills, Upper side-rails up, Wheels locked, Wires/Cords secured Li Dennison RN - 05/27/2020 17:19 EDT Fall Risk Education Grid Alarms : Verbalizes understanding Assistive Equipment Use : Verbalizes understanding Bed Height/Stabilization : Verbalizes understanding Call light use : Verbalizes understanding Door Open : Verbalizes understanding Environmental Management : Verbalizes understanding Eyeglasses Use : Verbalizes understanding Fall Community Resources : Verbalizes understanding Fall Contract/Letter : Verbalizes understanding Fall Prevention in the Home : Verbalizes understanding Fall Prevention Protocol : Verbalizes understanding Hearing Aid Use : Verbalizes understanding Home Risk Assessment : Verbalizes understanding Need Constant Observation : Verbalizes understanding Night Light Use : Verbalizes understanding Nonskid Footwear Use : Verbalizes understanding Notification of Staff When Leaving : Verbalizes understanding Orthostatic Hypotension Precautions : Verbalizes understanding Personal Article Availability : Verbalizes understanding Prevention Responsibility Family : Verbalizes understanding Prevention Responsibility Patient : Verbalizes understanding Risk Alert Methods : Verbalizes understanding Risk Factors : Verbalizes understanding Safety Aids : Verbalizes understanding Siderails use/risks : Verbalizes understanding Special Assistive Devices : Verbalizes understanding Staff Responsiveness : Verbalizes understanding Symptom Identification & Action Plan *Q : Verbalizes understanding Symptom Reporting : Verbalizes understanding Toileting Schedule : Verbalizes understanding Transfer/Mobility Techniques : Verbalizes understanding Urinal/Bedpan Availability : Verbalizes understanding Wait for Assistance : Verbalizes understanding Wheelchair Safety : Verbalizes understanding Li Dennison RN - 05/27/2020 17:19 EDT Barriers to Learning : None evident Individuals Taught : Patient Readiness to Learn : Cooperative Teaching Method : Explanation Learning Style Preferences Patient : None Teaching Evaluation : Verbalizes understanding Fall Risk Scale Calc Temp : 0 Li Dennison RN - 05/27/2020 17:19 EDT Health Histories Smoking Status : 10 or more cigarettes (1/2 pack or more)/day in last 30 days Smokeless Tobacco Status : Never Desires Tobacco Cessation Medication : No Reason for No Tobacco Cessation Medication : Refuses FDA approved medications Li Dennison RN - 05/27/2020 17:19 EDT Social History (As Of: 05/27/2020 17:23:02 EDT) Tobacco: 10 or more cigarettes (1/2 pack or more)/day in last 30 days Smoking Status. Never Smokeless Tobacco Status. Years of Use: 30. Packs/Tins Daily: .5. (Last Updated: 05/27/2020 12:45:45 EDT by Sara Reed, RN) Alcohol: Alcohol Use History No. (Last Updated: 05/27/2020 12:45:48 EDT by Sara Reed, RN) Substance Abuse: Drug Use Hx: No. (Last Updated: 05/27/2020 12:45:52 EDT by Sara Reed, RN) Height and Weight, Clinical Dosing Height Source : Stated Height Entry Format : Dent Height, Feet : 5 ft(Converted to: 152 cm, 60 Inch) Height, Inches : 5 Inch(Converted to: 0 ft 5 Inch, 12.70 cm) Clinical Height : 165.1 cm Weight Source : Standing scale Weight Entry Format : Dent Clinical Dosing Weight : 112.95 kg Weight, Pounds : 248 lb Weight, Ounces : 8 oz Body Surface Area (BSA) : 2.17 m2 Body Mass Index : 41.4 kg/m2 (>HHI) [place] Body Weight : 57 kg Li Dennison RN - 05/27/2020 17:19 EDT Infectious Disease History Has the patient ever been tested for COVID-19? : Yes, Patient stated results Negative Where was the COVID-19 Testing completed? : [facility] Where are the test results? : Paper Copy on chart COVID19 Screening : No Experiencing Infectious Disease Symptoms : No symptoms Physical contact outside [place] in the last 30 days : No Infectious Disease Symptoms Score : 0 Infectious Disease History : Chicken pox/Shingles, Influenza, Measles Exposure to Contagious Illness : No Tuberculosis Symptoms : None Li Dennison RN - 05/27/2020 17:19 EDT Tetanus Immunization Status Previous Tetanus Immunizations : No qualifying data available. Li Dennison RN - 05/27/2020 17:19 EDT Influenza Vaccine Asmt, Adult Previous Vaccines from Immunization Schedule : No qualifying data available. Influenza Immunization, Current Season : Yes Li Dennison RN - 05/27/2020 17:19 EDT Pneumococcal Vaccine Previous Vaccines from Immunization Schedule : No qualifying data available. Pneumonia Immunization Received : No Pneumococcal Risk Assessment < Age 65 : None Li Dennison RN - 05/27/2020 17:19 EDT Order Details Transport Mode Order Detail : Bed (including specialty) Isolation Precautions Order Detail : Standard Precautions Order Detail : 0 IV Order Detail : 1 Oxygen Order Detail : 0 Nurse Collect Order Detail : 0 Lift/Transfer : Independent Central Line Order Detail : No Room Service : Appropriate Arterial Line : No Li Dennison RN - 05/27/2020 17:19 EDT Nutrition History Feeding Ability : Independent Adaptive Feeding Equipment : None Adaptive Feeding Equipment : Regular Eating Poorly Due to Decreased Appetite : No Unplanned Weight Loss in Past 3-6 Months : No Malnutrition Screening Tool Total(mal) : 0 Malnutrition Screening Tool Risk Level : Patient not at risk Li Dennison RN - 05/27/2020 17:19 EDT [place] Suicide Severity Rating Scale (C-SSRS) CSSRS Past Month Wish to be : No CSSRS Past Month Suicidal Thoughts : No CSSRS Lifetime Suicide Behavior : No Suicide Severity Rating Score : 0 Suicide Severity Rating : No Additional Care Required at this time Li Dennison RN - 05/27/2020 17:19 EDT Psychosocial History Currently in Unsafe Situation : No Li Dennison RN - 05/27/2020 17:19 EDT Sleep Apnea Risk Assmt Hx of [...] Sleep Apnea Risk Level Score : 3 Li Dennison RN - 05/27/2020 17:19 EDT Spiritual/Cultural Needs Any Spiritual/Cultural Needs or Requests : No Li Dennison RN - 05/27/2020 17:19 EDT Valuables and Belongings Valuables and Belongings : Clothing, Personal devices Clothing : Common streetwear Clothing Disposition : Bedside, With patient Personal Device Disposition : Bedside, With patient Personal Devices : Glasses Li Dennison RN - 05/27/2020 17:19 EDT Electronically signed by [facility] [employer] Regrooving Machine Operator Cerner at 03/07/2023 9:14 AM CDT documented in this encounter Plan of Treatment Not on file documented as of this encounter Visit Diagnoses Not on filedocumented in this encounter Care Teams Nitrocellulose Operator Relationship Specialty Start Date End Date Fred Jameson PA [address] [place], [place] [id number] PCP - General Physician Plasterer Foreman 12/11/23 Tadeo Nieves PA-C [address] [facility] 2nd [place] [address] Physician Plasterer Foreman 01/27/23 documented as of this encounter
--- OUTSIDE RECORDS SUMMARY | 2025-05-01 09:28 | XMS_ITS | Encounter Summary ---
Author Organization [facility] In iatives Address [address] [place] [address] Care Team Providers Care Community Development Officer Name Role Phone Tadeo Nieves PA-C Unavailable [phone] Fred Jameson Primary Care Provider [phone] Encounter Details Date Type Department Care Team (Late st Contact Info) Description 05/27/2020 Transcribed Document [facility] [place] [address] [place] [address] ProviderBettie MD [address] [place] [address] Social History Tobacco Use Types Packs/Day Years Used Date Smoking Tobacco: Never Assessed Comments Unknown Sex and Gender Information Value Date Recorded Sex Assigned at Not on file Legal Sex Female 5:15 PM CDT Gender Identity Not on file Sexual Orientation Not on file documented as of this encounter Miscellaneous Notes * Cerner Conversion Note - Historical ProviderMD - 05/27/2020 4:30 PM CDT Education-(VTE) / (DVT) Entered On: 05/28/2020 0:34 EDT Performed On: 05/27/2020 21:00 EDT by Janna Cintron, RN Teaching/Learning Assessment Barriers To Learning : None evident Individuals Taught : Patient Readiness to Learn : Cooperative Learning Style Preferences Patient : None Janna Cintron, RN - 05/28/2020 0:34 EDT documented in this encounter Plan of Treatment Not on file documented as of this encounter Visit Diagnoses Not on filedocumented in this encounter Care Teams Community Development Officer Relationship Specialty Start Date End Date Fred Jameson PA [address] [place], [place] [id number] PCP - General Physician Scrap Bunch Maker 12/11/23 Tadeo Nieves PA-C [address] [facility] 2nd [place] [address] Physician Scrap Bunch Maker 01/27/23 documented as of this encounter
--- OUTSIDE RECORDS SUMMARY | 2025-05-01 09:28 | XMS_ITS | Encounter Summary ---
Author Organization [facility] In iatives Address [address] [place] [address] Care Team Providers Care Care Specialist Name Role Phone Tadeo Nieves PA-C Unavailable [phone] Fred Jameson Primary Care Provider Encounter Details Date Type Department Care Team (Late st Contact Info) Description 05/28/2020 Transcribed Document [facility] [place] Family Medicine [address] [place] [address] ProviderBettie MD [address] [place] [address] Social History Tobacco Use Types Packs/Day Years Used Date Smoking Tobacco: Never Assessed Comments Unknown Sex and Gender Information Value Date Recorded Sex Assigned at Not on file Legal Sex Female 5:15 PM CDT Gender Identity Not on file Sexual Orientation Not on file documented as of this encounter Miscellaneous Notes * Cerner Conversion Note - Bettie Romero MD - 05/28/2020 9:16 AM CDT Patient: LAINEY BECERRIL Age: 49 years Sex: Female : 1970 Associated Diagnoses: At risk for sleep apnea; Hypoxemia, Postoperative; Status post right SI joint f; Arthritis; GERD (gastroesophageal reflux disease); HTN (hypertension); Depression with anxiety; Tobacco use disorder, continuous; DM (diabetes mellitus), Type II Author: WHITNEY HOWE MD-INT Date of admission 05/27/2020 Date of consult 05/27/2020 Orthopedic and spine surgeon, Tristan Mcallister MD Medicine consult progress note, daily medicineWhitney M.D. 05/28/2070 Basic Information awake alert comfortable, Oxygen saturation on 96% in room air Participating well with PT/OT Pain well-controlled No headache or dizziness when she got up with PT/OT Heiss. Tolerating well oral by mouth intake No nausea or vomiting Had a BM this morning No trouble with urination Urine output is adequate Labs reviewed Vitals reviewed Review of Systems Constitutional: No fever, No chills. Eye: No discharge, No blurring, No double vision, No visual disturbances. Ear/Nose/Mouth/Throat: No nasal congestion, No sore throat. Respiratory: No shortness of breath, No cough. Cardiovascular: No chest pain, No palpitations. Gastrointestinal: No nausea, No vomiting. Genitourinary: No change in urine stream. Musculoskeletal: Negative. Integumentary: wound stable covered w. clean dressing. Neurologic: Alert and oriented X4. Health Status Allergies: Allergic Reactions (Selected) No Known Allergies, No qualifying data available Current medications: Medications (21) Active Scheduled: (5) FLUoxetine 20 mg cap 40 mg 2 Cap, Oral, Daily hydrochlorothiazide 25 mg tab 25 mg 1 Tab, Oral, Daily levothyroxine 112 mcg tab 112 mcg 1 Tab, Oral, Daily nicotine 21 mg/24 hr patch 1 Patch, TransDermal, At Bedtime pantoprazole EC 40 mg tab 40 mg 1 Tab, Oral, Daily Continuous: (2) D5/LR 1,000 mL 1,000 mL, IntraVENous, 100 mL/Hr D5w/NaCl 0.45% 1,000 mL 1,000 mL, IntraVENous, 30 mL/Hr PRN: (14) acetaminophen/HYDROcodone 325/7.5 mg tab 1 Tab, Oral, [...] liq 30 mL 15 mL, Oral, Q6H ondansetron 4 mg/2 mL inj 4 mg 2 mL, IV Push, Q4H phenol 1.4% throat spray 5 [place], Oral, Q2H promethazine 25 mg/1 mL inj 12.5 mg [...] mellitus) GERD (gastroesophageal reflux disease) HTN (hypertension) Physical Examination VS/Measurements Vital Measurements 05/28/2020 5:00 EDT Systolic Blood Pressure 120 mmHg Diastolic Blood Pressure 75 mmHg Mean Arterial Pressure (MAP)-BMDI 86 Temperature Source Oral Temperature Mode Fahrenheit Temperature, Fahrenheit 98 Deg F Clinical Temperature, C 36.7 Deg C Heart Rate Monitored 90 bpm Respiratory Rate 16 Breaths/Min Oxygen Saturation 93 % LOW General: Alert and oriented, No acute distress. Eye: Pupils are equal, round and reactive to light, Extraocular movements are intact. HENT: Oral mucosa is moist. Neck: Supple, No carotid bruit, No jugular venous distention, No lymphadenopathy, No thyromegaly. Respiratory: Lungs are clear to auscultation, Breath sounds are equal. Cardiovascular: Normal rate, Regular rhythm, No murmur. Gastrointestinal: Soft, Non-tender, Normal bowel sounds, No organomegaly. Genitourinary: No costovertebral angle tenderness, No inguinal tenderness. Lymphatics: No lymphadenopathy neck, axilla, groin. Musculoskeletal: Normal strength, No swelling. Integumentary: Warm, Intact, No rash, WOUND STABLE. Neurologic: Alert, Oriented, No focal deficits. Psychiatric: Cooperative, Appropriate mood & affect. Review / Management Results review: All Results 05/28/2020 4:06 EDT Sodium Level 137 mmol/L Potassium Level 4.3 mmol/L Chloride Level 100 mmol/L LOW Carbon Dioxide Level 30 mmol/L Anion Gap 11 Glucose Level 148 mg/dL HI Blood Urea Nitrogen 18 mg/dL Creatinine Level 0.97 mg/dL eGFR >60 mL/min/1.73m2 eGFR NonAfrican >60 mL/min/1.73m2 Bun/Creatinine 18.6 Calcium Level 8.8 mg/dL Hgb 12.5 Gram/dL Hct 39.2 % . Condition: Stable. Impression and Plan Diagnosis At risk for [...] mellitus), Type II - Admitting, Medical. Course: Plan/ cont. current care, pt/ot, encourage oral fluid intake, nutritional support, encourage use of respirometer, motoring blood pressure, renal function, blood glucose, and urine output. Is hemodynamically and clinically stable afebrile. DC home from medical standpoint and if discharged by Dr. Mcallister and is discharged by PT/OT. documented in this encounter Plan of Treatment Not on file documented as of this encounter Visit Diagnoses Not on filedocumented in this encounter Care Teams Care Specialist Relationship Specialty Start Date End Date Fred Jameson PA [address] [place] [address] PCP - General Physician Outcome Analyst 12/11/23 Tadeo Nieves PA-C [address] [facility] 2nd [place] [address] Physician Outcome Analyst 01/27/23 documented as of this encounter
--- OUTSIDE RECORDS SUMMARY | 2025-05-01 09:28 | XMS_ITS | Encounter Summary ---
Author Organization [facility] In iatives Address [address] [place] [address] Care Team Providers Care Ad Operations Specialist Name Role Phone Tadeo Nieves PA-C Unavailable [phone] Fred Jameson Primary Care Provider Encounter Details Date Type Department Care Team (Late st Contact Info) Description 05/28/[address] [facility] [place] [address] ProviderBettie MD [address] [place] [address] Social History Tobacco Use Types Packs/Day Years Used Date Smoking Tobacco: Never Assessed Comments Unknown Sex and Gender Information Value Date Recorded Sex Assigned at Not on file Legal Sex Female 5:15 PM CDT Gender Identity Not on file Sexual Orientation Not on file documented as of this encounter Miscellaneous Notes * Cerner Conversion Note - Historical ProviderMD - 05/28/2020 9:50 AM CDT Initial Discharge Planning Entered On: 05/28/2020 9:51 EDT Performed On: 05/28/2020 9:50 EDT by NAS CATALAN, Care Management-Bull Driver Initial Assessment I Previously Documented Living Environment : Living Situation, CM: Home (05/22/20 09:55:00) Sensory and Motor Deficits: Other: L SI Joint fusion (05/22/20 09:55:00) Current Home Treatments and Equipment: None (05/22/20 09:55:00) Living Situation : Home Patient Lives With : Spouse Is the Patient a Caregiver at Home? : No Emergency Contact #1 : Siria Becerril Emergency Contact #1 Emergency Contact #1 Relationship : spouse Emergency Contact #2 : na Emergency Contact #2 Phone Number : na Emergency Contact #2 Relationship : na Enter Doctors Name : Fred Jameson Does Patient have PCP Listed? : Yes NAS CATALAN Care Management-Bull Driver - 05/28/2020 9:50 EDT Initial Assessment II Sensory and Motor Deficits : Other: L SI Joint fusion Current Home Treatments and Equipment : None NAS CATALAN Care Management-Bull Driver - 05/28/2020 9:50 EDT Discharge Needs I Anticipated Discharge Date : 05/28/2020 EDT Anticipated Discharge To, CM : Home with family care Current Home Treatment/Equipment : Current Home Treatment/Equipment Current Home Treatments and Equipment: None (05/22/20 09:55:00) Post Acute/Home Treatments : Walker Documentation Status Complete : Yes NAS CATALAN Care Management-Bull Driver - 05/28/2020 9:50 EDT Discharge Needs II Professional Skilled Services : Professional Skilled Services No qualifying data available. Needs Assistance with Transportation : No Discharge Options Discussed with Patient : DME NAS CATALAN Care Management-Bull Driver - 05/28/2020 9:50 EDT documented in this encounter Plan of Treatment Not on file documented as of this encounter Visit Diagnoses Not on filedocumented in this encounter Care Teams Ad Operations Specialist Relationship Specialty Start Date End Date Fred Jameson PA [address] [place] [address] PCP - General Physician Paper Supervisor 12/11/23 Tadeo Nieves PA-C [address] [facility] 2nd [place] [address] Physician Paper Supervisor 01/27/23 documented as of this encounter
--- OUTSIDE RECORDS SUMMARY | 2025-05-01 09:28 | XMS_ITS | Encounter Summary ---
Author Organization [facility] In iatives Address [address] [place] [address] Care Team Providers Care Branch Operations Manager Name Role Phone Tadeo Nieves PA-C Unavailable [phone] Fred Jameson Primary Care Provider Encounter Details Date Type Department Care Team (Late st Contact Info) Description 05/28/2020 Transcribed Document [facility] [place] [facility] [place] [address] ProviderBettie MD [address] [place] [address] Social History Tobacco Use Types Packs/Day Years Used Date Smoking Tobacco: Never Assessed Comments Unknown Sex and Gender Information Value Date Recorded Sex Assigned at Not on file Legal Sex Female 5:15 PM CDT Gender Identity Not on file Sexual Orientation Not on file documented as of this encounter Miscellaneous Notes * Cerner Conversion Note - Bettie ProviderMD - 05/28/2020 9:32 AM CDT Stroke/Warfarin Instructions Entered On: 05/28/2020 9:32 EDT Performed On: 05/28/2020 9:32 EDT by Idalia Iniguez RN Stroke/Warfarin Instructions Stroke/TIA Discharge Ins : N/A Warfarin Discharge Ins : N/A Idalia Iniguez RN - 05/28/2020 9:32 EDT documented in this encounter Plan of Treatment Not on file documented as of this encounter Visit Diagnoses Not on filedocumented in this encounter Care Teams Branch Operations Manager Relationship Specialty Start Date End Date Fred Jameson PA [address] [place], [place] [id number] PCP - General Physician Supervisor Pyrotechnic Loading 12/11/23 Tadeo Nieves PA-C 70[address] [facility] 2nd [place] [address] Physician Supervisor Pyrotechnic Loading 01/27/23 documented as of this encounter
--- OUTSIDE RECORDS SUMMARY | 2025-05-01 09:28 | XMS_ITS | Encounter Summary ---
Author Organization [facility] In iatives Address [address] [place] [address] Care Team Providers Care Residential Gas Heat Technician Name Role Phone Tadeo Nieves PA-C Unavailable [phone] Fred Jameson Primary Care Provider Encounter Details Date Type Department Care Team (Late st Contact Info) Description 05/28/2020 Transcribed Document [facility] [place] Family Medicine [address] [place] [address] ProviderBettie MD [address] [place] [address] Social History Tobacco Use Types Packs/Day Years Used Date Smoking Tobacco: Never Assessed Comments Unknown Sex and Gender Information Value Date Recorded Sex Assigned at Not on file Legal Sex Female 5:15 PM CDT Gender Identity Not on file Sexual Orientation Not on file documented as of this encounter Miscellaneous Notes * Cerner Conversion Note - Bettie ProviderMD - 05/28/2020 9:52 AM CDT Final Discharge Planning Entered On: 05/28/2020 9:56 EDT Performed On: 05/28/2020 9:52 EDT by NAS CATALAN, Care Management-Propulsion Systems Engineer Final Discharge Planning Discharge Arrangements : Patient Post-Acute Information Patient Name: LAINEY BECERRIL Gender: Female : [birth year] Age: 49 Years No Post-Acute Placement(s) Listed No Post-Acute Service(s) Listed No [place] Referral(s) Listed Patient Offered Choice/Affiliations Explained : Yes Designation of Choice Signed : Yes Discharge To Care Management : Home/Residential/Correction or Self Care -01 NAS CATALAN, Care Management-Propulsion Systems Engineer - 05/28/2020 9:52 EDT Final Narrative Note Final Narrative Note : Per nursing staff, Pt and spouse upset and complaining she did not discharge yesterday evening because she was informed it was because we could not get her a walker after hours. Pt chart reviewed and pt/spouse seen this am by myself and PT, pts O2 sats were in 70% range on RA and pt was not medically ready for d/c. Pt informed of medical clearance and need to be seen by PT/OT and Walker orders not placed until pt arrives for surgery. Call to DR. Phillip to inform of issues, he saw pt and pt was d/c by 09:38 am today with walker and medical clearance. Pt and spouse were calm during PT/OT and case management visit. NAS CATALAN Care Management-Propulsion Systems Engineer - 05/28/2020 9:52 EDT documented in this encounter Plan of Treatment Not on file documented as of this encounter Visit Diagnoses Not on filedocumented in this encounter Care Teams Residential Gas Heat Technician Relationship Specialty Start Date End Date Fred Jameson PA [address] [place], [place] [id number] PCP - General Physician Nurse Monitoring 12/11/23 Tadeo Nieves PA-C 3[address] [facility] 2nd [place] [address] Physician Nurse Monitoring 01/27/23 documented as of this encounter
--- OUTSIDE RECORDS SUMMARY | 2025-05-01 09:28 | XMS_ITS | Encounter Summary ---
Author Organization [facility] In iatives Address [address] [place] [address] Care Team Providers Care Pipe Assembly Worker Name Role Phone Tadeo Nieves PA-C Unavailable [phone] Fred Jameson Primary Care Provider Encounter Details Date Type Department Care Team (Late st Contact Info) Description 05/28/2020 Transcribed Document [facility] [place] [address] ProviderBettie MD [address] [place] [address] Social History Tobacco Use Types Packs/Day Years Used Date Smoking Tobacco: Never Assessed Comments Unknown Sex and Gender Information Value Date Recorded Sex Assigned at Not on file Legal Sex Female 5:15 PM CDT Gender Identity Not on file Sexual Orientation Not on file documented as of this encounter Miscellaneous Notes * Cerner Conversion Note - Bettie ProviderMD - 05/28/2020 9:42 AM CDT Nursing Discharge Summary Entered On: 05/28/2020 9:42 EDT Performed On: 05/28/2020 9:42 EDT by Idalia Iniguez, chalk extruding machine operator Documentation Discharge Date/Time : 05/28/2020 9:43 EDT Patient Disposition, General : Discharge Discharge To : Home with ambulatory/outpatient follow-up Idalia Iniguez, ASHLEIGH - 05/28/2020 9:42 EDT documented in this encounter Plan of Treatment Not on file documented as of this encounter Visit Diagnoses Not on filedocumented in this encounter Care Teams Pipe Assembly Worker Relationship Specialty Start Date End Date Fred Jameson PA [address] [place] [address] PCP - General Physician Towboat Engineer 12/11/23 Tadeo Nieves PA-C [address] [facility] 2nd [place] [address] Physician Towboat Engineer 01/27/23 documented as of this encounter
--- OUTSIDE RECORDS SUMMARY | 2025-05-01 09:28 | XMS_ITS | Encounter Summary ---
Author Organization [facility] In iatives Address [address] [place] [address] Care Team Providers Care Archery Equipment Hay Sorter Name Role Phone Tadeo Nieves PA-C Unavailable [phone] Fred Jameson Primary Care Provider Encounter Details Date Type Department Care Team (Late st Contact Info) Description 05/27/2020 Transcribed Document [facility] [place] [facility] [place] [address] ProviderBettie MD [address] [place] [address] Social History Tobacco Use Types Packs/Day Years Used Date Smoking Tobacco: Never Assessed Comments Unknown Sex and Gender Information Value Date Recorded Sex Assigned at Not on file Legal Sex Female 5:15 PM CDT Gender Identity Not on file Sexual Orientation Not on file documented as of this encounter Miscellaneous Notes * Cerner Conversion Note - Historical ProviderMD - 05/27/2020 1:07 PM CDT Event Note Entered On: 05/27/2020 13:08 EDT Performed On: 05/27/2020 13:07 EDT by Sara Reed, ASHLEIGH Event Note Event Date/Time : 05/27/2020 13:05 EDT Event Location : [place] area Description of Event : Per Dr. Lopez change maintenance ivf to D5LR at 100ml per hour. Redraw potassium level. Sara Reed, RN - 05/27/2020 13:07 EDT Electronically signed by Sarah Cohn Conversion Shared Services And Outsourcing Manager Cerner at 03/07/2023 9:24 AM CDT documented in this encounter Plan of Treatment Not on file documented as of this encounter Visit Diagnoses Not on filedocumented in this encounter Care Teams Archery Equipment Hay Sorter Relationship Specialty Start Date End Date Fred Jameson PA [address] [place] [address] PCP - General Physician Maple Syrup Maker 12/11/23 Tadeo Nieves PA-C [address] [facility] 2nd floor [place], [place] [id number] Physician Maple Syrup Maker 01/27/23 documented as of this encounter
--- OUTSIDE RECORDS SUMMARY | 2025-05-01 09:28 | XMS_ITS | Encounter Summary ---
Author Organization [facility] In iatives Address [address] [place] [address] Care Team Providers Care Marketing Representative Name Role Phone Tadeo Nieves PA-C Unavailable [phone] Fred Jameson Primary Care Provider [phone] Encounter Details Date Type Department Care Team (Late st Contact Info) Description 05/28/2020 Transcribed Document [facility] [place] [facility] [place] [address] ProviderBettie MD [address] [place] [address] Social History Tobacco Use Types Packs/Day Years Used Date Smoking Tobacco: Never Assessed Comments Unknown Sex and Gender Information Value Date Recorded Sex Assigned at Not on file Legal Sex Female 5:15 PM CDT Gender Identity Not on file Sexual Orientation Not on file documented as of this encounter Miscellaneous Notes * Cerner Conversion Note - Bettie ProviderMD - 05/28/2020 5:00 AM CDT Chart Check - Review Order Profile Entered On: 05/28/2020 3:21 EDT Performed On: 05/28/2020 5:00 EDT by Janna Cintron, RN Chart Check Powerplans Initiated/Discontinued as Appropriate : Yes All Active Orders Reviewed : Yes Janna Cintron, RN - 05/28/2020 3:21 EDT documented in this encounter Plan of Treatment Not on file documented as of this encounter Visit Diagnoses Not on filedocumented in this encounter Care Teams Marketing Representative Relationship Specialty Start Date End Date Fred Jameson PA [address] [place] [address] PCP - General Physician Marketing Professional 12/11/23 Tadeo Nieves PA-C [address] [facility] 2nd [place] [address] Physician Marketing Professional 01/27/23 documented as of this encounter
--- OUTSIDE RECORDS SUMMARY | 2025-05-01 09:28 | XMS_ITS | Encounter Summary ---
Author Organization [facility] [employer] Address [address] [place] [id number] Care Team Providers Care Personnel Administrator Name Role Phone Tadeo Nieves PA-C Unavailable [phone] Fred Jameson Primary Care Provider Encounter Details Date Type Department Care Team (Late st Contact Info) Description 05/27/2020 Transcribed Document [facility] Family Medicine [address] [place] [address] [id number] ProviderBettie MD [address] [place] [id number] Social History Tobacco Use Types Packs/Day Years Used Date Smoking Tobacco: Never Assessed Comments Unknown Sex and Gender Information Value Date Recorded Sex Assigned at Not on file Legal Sex Female 5:15 PM CDT Gender Identity Not on file Sexual Orientation Not on file documented as of this encounter Miscellaneous Notes * Cerner Conversion Note - Bettie Romero MD - 05/27/2020 3:00 PM CDT Patient: LAINEY BECERRIL Age: 49 years Sex: Female : 1970 Associated Diagnoses: None Author: SIERRA MORRISON MD-ORT Date: May 27, 2020 PROCEDURE: Right sacroiliac joint arthrodesis with instrumentation. Using triangular titanium mesh bone ingrowth cage. PREOPERATIVE DIAGNOSIS(ES): Right joint osteoarthritis, disorder, disruption.dysfunction, sacroiliitis, arthropathy POSTOPERATIVE DIAGNOSIS(ES): Right sacroiliac joint osteoarthritis, disorder, disruption.dysfunction, sacroiliitis, arthropathy SURGEON: Sierra Morrison M.D. LAY OUT WORKER: josselin Elder The duties of the surgical assistant certified are to carefully position the patient onto the table, thereafter during the surgery, to carefully maintain the retractor, to hold the drill guide. The drill guide is directed towards the sacroiliac joint and is off just by a couple of millimeters, this could result in damaging to the neurovascular structures, drilling into the nerve roots, or the structures of the pelvis. Therefore, it is of absolute importance that the surgical assistant certified is present to maintain that in proper position. Assistance with closure, then assisting transfer of patient to the post op. bed. The surgeon does the remainder of the surgery. DVT prophylaxis- yes ANTIBIOTIC:administered TIME-OUT: Performed. ANESTHESIA: General. BLOOD LOSS: Less than 10 Rocha FINDINGS: Sacroiliac joint osteoarthritis. Dysfunction. Sacroiliitis COMPLICATIONS: Negative. Preoperative marking of the surgery site performed. Pathology identified, severe sacroiliac joint osteoarthritis and dysfunction. FLUOROSCOPY: 1.1 minutes The operating surgeon, Dr. Morrison, carefully positioned the fluoroscopic unit, and then managed the fluoroscopic unit in five different planes; pelvic inlet, pelvic outlet, lateral view, oblique view, and AP views, supervising each of these positions. PHYSICIAN QUALITY REPORTING SYSTEM, PAYMENT FOR PERFORMANCE SERVICES Antibiotics was administered with when 1 hour of incision. Antibiotics [id number] cephalosporin-Ancef discontinuation of antibiotics within 24 hours Mechanical DVT prophylaxis Catheter-no use was required. Tobacco cessation SURGICAL INDICATIONS: Symptoms-Severe right pain, sacroiliac area. Below L5-S1. Posterior thigh pain, down to the level with knee, anterior thigh pain and right groin pain. Arrest of increasing pain, ??3 years. Severe ??1 year. Patient has not been able to work because of the pain. Duration-Pain rated 10 out of 10 with activity, present most of the time, symptoms unbearable, for greater than 12 months, hasn't present much longer, but worse overtime 6 months. Symptom duration at least 6 years, is just in the last year worsening of symptoms. Function-Especially worse getting in and out of a chair, single stance gait, twisting or lifting through the right sacroiliac joint. 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 Shopping. Housecleaning, non-nerve root compressive radiculopathy. Nerve root compressive symptoms are not identified. Treatments-failure with modification of activity, anti-inflammatory medication, cortisone injection, rest, strengthening exercises, pain medication, neuropathic agents. Therapeutic sacroiliac joint injection given temporary relief only. Examination-maximal tenderness at Carrillo's point, reproduction of clinical pain with provocative testing including the Tam test, compression tests shear test distraction, and gaenslyns manouver. INVESTIGATIONS Plain e-modk-hxwhgq multilevel disc degeneration. Sacroiliac joint sclerosis, right side. Imaging studies-CT scan sacroiliac joint, confirming sclerosis, osteophytes, reactive bone formation, cyst formation, anterior and posterior osteophytes. MRI -confirming sacroiliac joint arthropathy, with loss of joint space, and osteophytes anteriorly and posteriorly. The next logical treatment plan, as her symptoms are extremely disabling for her would be minimal invasive sacroiliac joint arthrodesis. Procedure risks and expectations have been reviewed with the patient. Diagnostic injection-fluoroscopic control injection into the sacroiliac joint with local anesthetic, with contrast, within minutes relieving the patient's symptoms, greater than 90%, and then with the cortisone effect, temporary improvement for several days. Then recurrence of symptoms. This was on 2 separate occasions, with x-ray verification. Alternative pathologies-ruled out, good range of motion in the hip joints, x-rays of the hips looking relatively normal. Lumbar spine MRI does not correlate with the patient's symptoms and diagnostic block-looks solid, and appears to be fused. No nerve root compressive lesions identified. Recommendation. Patient has been encouraged to live with the symptoms. Patient states the symptoms are unbearable. Greatly causing great decrease in function secondary to pain. The source of the symptoms have been identified with imaging studies, diagnostic blocking physical examination. There is a reasonable chance, that with minimal invasive sacroiliac joint arthrodesis on the left side, the symptoms can be treated. Tobacco cessation No tobacco use has been present on the patient over the patient be allowed to use tobacco or tobacco products. Summary of indications-criteria 1. Patient havingsevere unrelenting pain greater than 6 months duration, failure of conservative treatment, including rest, physical therapy, anti-inflammatory medication, exercises, pain medication, career manager, injection therapy. 2. Symptoms are localized, to the sacroiliac joint, on the right side. Below L5-S1. 3. Provocative testing, reproduction of clinical pain with all 5 out of 5 sacroiliac provocative test. 4. C-unmz-lrdmvoiapls all sources of pain, that may be coming from the spine.eliminating other pelvic pathology. Or other sources. 5. MRI study, CT scan, eliminating other sources of pain. Such as lumbar spine. 6. Imaging studies sacroiliac joint-sclerosis, osteophytes, cyst formation, vacuum phenomena, consistent with sacroiliac joint sacroiliitis. 7. Diagnostic SI joint block with local and aesthetic, relieving greater than 80% of the patient's symptoms, for the duration of the local anesthesia. Repeated on several occasions. 8. Therapeutic SI joint block with cortisone, relieving patient's symptomsfor therapeutic effect only. Lasting several days. Not giving long-term relief COMORBIDITIES Arthritis Sleep apnea Depression Anxiety GERD Hypertension Diabetes DESCRIPTION OF PROCEDURE: The patient was brought into the operating room. general anesthetic was administered. Antibiotics were administered.DVT protocol. The patient was very gently placed prone on the OR table. Preoperative planning required to development of a blueprint. The blueprint was developed The combination of all these pictures allowed me to carefully create a blueprint, for the patients surgery, and then placed this blueprint on paper. The blueprint was then transferred over onto the patient's back using the five-plane fluoroscopy, and laser supervised by the surgeon. Washed and prepped. Sterile draping. Time-out. A lateral incision was made measuring approximately2-3 inches in length., right side. The surgical assistant certified carefully retacting and suctioning and myself carefully dissected through the fascia and gluteus muscle on to the ilium, and then carefully locking the retractor down with manual retraction onto the ilium. Through this incision, very careful dissection through the soft tissues,division of the facscia and muscles onto the ilium overlying the SI joint Scraping periosteum, placement of the heavy guide pin through the ileum into the joint, then into the sacrum, followed by drilling with the 6 mm drill. This was confirmed with five-plane fluoroscopy. Then, drilling of the heavy guidewire, through the ilium into the sacroiliac joint. Identification of the sacroiliac joint, then very carefully making certain in all five planes that it was going into the pelvis or into the neurologic structures. It was absolutely imperative, the surgical assistant certified carefully hold the guide and not move it.Then withdirect visualization, placement of the heavy guide pin through the ilium, into the SI joint, and then into the sacrum. Two further pins were placed in the same fashion. These were placed with assistence with the parallel guide, 15 mm apart from each other, drilling through the lateral ilium, into the sacroiliac joint, then the sacrum. Again, we checked in five-plane fluoroscopy. Measuring for implant length. This was followed by drilling with a 6-mm drill bit, through the ilium into the sacroiliac joint into the sacrum. Bone graft harvested and placed int the SI joint bed fusion site, Subsequent to that broaching with the jennie sanford. Fixatiion of the joint with the bio ingrowth fixation pin,checking final position with xray in 5 planes. The two remainder devices were placed in the same fashion. This was done very carefully. Placement of the retractor drill guide, onto the ilium,retracting the muscle, measuring for fixation pin length , elevating the periosteum, drilling across the sacroiliac joint, bone graft harvest and bone grafting the SI joint fusion site. grafting, broaching, and then placement of the bio ingrowth fixation devices. All three devices were placed and carefull confirmation on the x-rays, making certain that they were properly positioned in all five planes. The wounds were washed out. Local infiltration. Deep fascia repaired with #1 Vicryl, subcu with 2-0 Vicryl, skin with claudia. Antibiotic dressing. Patient was transferred to Recovery in good condition. Patient will remain in the hospital until stable and ambulatory.and pain controlled. Sierra Landa M.D. May 27, 2020 Signature Line documented in this encounter Plan of Treatment Not on file documented as of this encounter Visit Diagnoses Not on filedocumented in this encounter Care Teams Personnel Administrator Relationship Specialty Start Date End Date Fred Jameson PA [address] [place] [address] PCP - General Physician Research/Program Director 12/11/23 Tadeo Nieves PA-C [address] [facility] 2nd [place] [address] Physician Research/Program Director 01/27/23 documented as of this encounter
--- OUTSIDE RECORDS SUMMARY | 2025-05-01 09:29 | XMS_ITS | Encounter Summary ---
Author Organization [facility] [employer] Address [address] [place] [address] Care Team Providers Care Network/Telecom Engineer Name Role Phone Tadeo Nieves PA-C Unavailable [phone] Fred Jameson Primary Care Provider Encounter Details Date Type Department Care Team (Late st Contact Info) Description 05/22/2020 Transcribed Document [facility] [place] [facility] [place] [address] ProviderBettie MD [address] [place] [address] Social History Tobacco Use Types Packs/Day Years Used Date Smoking Tobacco: Never Assessed Comments Unknown Sex and Gender Information Value Date Recorded Sex Assigned at Not on file Legal Sex Female 5:15 PM CDT Gender Identity Not on file Sexual Orientation Not on file documented as of this encounter Miscellaneous Notes * Cerner Conversion Note - Historical ProviderMD - 05/22/2020 9:55 AM CDT Initial Discharge Planning Entered On: 05/22/2020 9:57 EDT Performed On: 05/22/2020 9:55 EDT by NAS CATALAN Care Management-Casing Inspector Initial Assessment I Previously Documented Living Environment : No qualifying data available. Living Situation : Home Patient Lives With : Spouse Is the Patient a Caregiver at Home? : No Enter Doctors Name : Fred Jameson Does Patient have PCP Listed? : Yes NAS CATALAN Care Management-Casing Inspector - 05/22/2020 9:55 EDT Initial Assessment II Sensory and Motor Deficits : Other: L SI Joint fusion Current Home Treatments and Equipment : None NAS CATALAN Care Management-Casing Inspector - 05/22/2020 9:55 EDT Discharge Needs I Anticipated Discharge To, CM : Home with family care Current Home Treatment/Equipment : Current Home Treatment/Equipment No qualifying data available. Documentation Status Complete : Yes NAS CATALAN Care Management-Casing Inspector - 05/22/2020 9:55 EDT Discharge Needs II Professional Skilled Services : Professional Skilled Services No qualifying data available. Needs Assistance with Transportation : No Discharge Options Discussed with Patient : DME NAS CATALAN Care Management-Casing Inspector - 05/22/2020 9:55 EDT Narrative Note Narrative Note : Per pre admit screen, pt is scheduled for SI Joint Fusion, pt does not hava a walker and if needed is agreeable to order accordingly upon admission if 50% wt bearing and per PT recommendations NAS CATALAN Care Management-Casing Inspector - 05/22/2020 9:55 EDT Electronically signed by [facility]it [facility] Conversion Electrical Engineering Drafting Officer Cerner at 03/07/2023 9:16 AM CDT documented in this encounter Plan of Treatment Not on file documented as of this encounter Visit Diagnoses Not on filedocumented in this encounter Care Teams Network/Telecom Engineer Relationship Specialty Start Date End Date Fred Jameson PA [address] [place] [address] PCP - General Physician Chocolate Production Machine Operator 12/11/23 Tadeo Nieves PA-C [address] [facility] [address]nd [place] [address] Physician Chocolate Production Machine Operator 01/27/23 documented as of this encounter
--- OUTSIDE RECORDS SUMMARY | 2025-05-01 09:29 | XMS_ITS | Encounter Summary ---
Author Organization [facility] In [facility] Address [address] [place] [id number] Care Team Providers Care Customer Order Clerk Name Role Phone Tadeo Nieves PA-C Unavailable [phone] Ferd Jameson Primary Care Provider Encounter Details Date Type Department Care Team (Late st Contact Info) Description 05/27/2020 Transcribed Document [facility] [place] [facility] [address] [place] [id number] ProviderBettie MD [address] [place] [id number] Social History Tobacco Use Types Packs/Day Years [...] 05/27/2020 2:35 PM CDT [facility] Main OR IntraOp Summary Primary Physician: SIERRA MORRISON MD-SHASHI Finalized Date/Time: 05/28/20 17:01:09 Pt. Name: LAINEY BECERRIL SRIKANTH Dubois./Sex: 1970 Female Med Rec #: [id number] Physician: SIERRA MORRISON MD-SHASHI Financial #: [id number] Pt. Type: O Room/Bed: [facility]/ Admit/Disch: 05/27/20 10:31:00 - 05/28/20 09:46:00 Institution: [facility] IntraOp Case Attendance Entry 1 Entry 2 Entry 3 Case Attendee SIERRA MORRISON MD-ORT Davis, Aleitha E, RN WYATT ARRINGTON, OR CABRERA Role Performed Surgeon/Proceduralist, Blanket Washer, First Scrub, First First Time In 05/27/20 14:12:00 05/27/20 14:12:00 05/27/20 14:12:00 Time Out 05/27/20 15:19:00 05/27/20 15:19:00 05/27/20 15:19:00 Procedure Sacroiliac Joint Fusion Sacroiliac Joint Fusion Sacroiliac Joint Fusion Other Attendee Superficial Wound Closed By: Last Modified By: Jose Raul Nelson, Jose Raul Mejia, Jose Raul Mejia RN 05/27/20 15:19:19 05/27/20 15:19:19 05/27/20 15:19:19 Entry 4 Entry 5 Entry 6 Case Attendee JAVY ARAIZA, Holly Huston, OTHER, ATTENDEE #1 Casing Inspector Role Performed Physician legal document assistant Machine Grinder Vendor Time In 05/27/20 14:12:00 05/27/20 14:12:00 05/27/20 14:12:00 Time Out 05/27/20 15:19:00 05/27/20 15:19:00 05/27/20 15:19:00 Procedure Sacroiliac Joint Fusion Sacroiliac Joint Fusion Sacroiliac Joint Fusion Other Attendee delfino winkler Superficial Wound Closed By: Last Modified By: Jose Raul Nelson RN Davis, Aleitha E, RN Davis, Aleitha E, RN 05/27/20 15:19:19 05/27/20 15:19:19 05/27/20 15:19:19 Entry 7 Entry 8 Case Attendee OTHER, ATTENDEE #2 PHILIP JAIN V, PHP DEVELOPER-ANS Role Performed Student PHP DEVELOPER/Nurse Combat Systems Operator Time In 05/27/20 14:12:00 05/27/20 14:12:00 Time Out 05/27/20 15:19:00 05/27/20 15:19:00 Procedure Sacroiliac Joint Fusion Sacroiliac Joint Fusion Other Attendee SYMONE KAY Superficial Wound Closed By: Last Modified By: Jose Raul Nelson RN Davis, Aleitha E, RN 05/27/20 15:19:19 05/27/20 15:19:19 [facility] IntraOp Case Attendance Audit 05/27/20 15:19:19 Washing Machine Operator: ALEITHADAVIS Modifier: ALEITHADAVIS 1 <+> Time Out 1 <*> Procedure Sacroiliac Joint Fusion 2 <+> Time Out 2 <*> Procedure Sacroiliac Joint Fusion 3 <+> Time Out 3 <*> Procedure Sacroiliac Joint Fusion 4 <+> Time Out 4 <*> Procedure Sacroiliac Joint Fusion 5 <+> Time Out 5 <*> Procedure Sacroiliac Joint Fusion 6 <+> Time Out 6 <*> Procedure Sacroiliac Joint Fusion 7 <+> Time Out 7 <*> Procedure Sacroiliac Joint Fusion 8 <+> Time Out 8 <*> Procedure Sacroiliac Joint Fusion 05/27/20 14:41:39 Washing Machine Operator: ALEITHADAVIS Modifier: ALEITHADAVIS <+> 1 Procedure 2 <+> Time In 2 <*> Procedure Sacroiliac Joint Fusion 3 <+> Time In 3 <*> Procedure Sacroiliac Joint Fusion 4 <+> Time In 4 <*> Procedure Sacroiliac Joint Fusion 5 <+> Time In 5 <*> Procedure Sacroiliac Joint Fusion 6 <+> Time In 6 <*> Procedure Sacroiliac Joint Fusion 7 <+> Time In 7 <*> Procedure Sacroiliac Joint Fusion 8 <+> Time In 8 <*> Procedure Sacroiliac Joint Fusion [facility] IntraOp Case Times Entry 1 Patient In Room Time 05/27/20 14:12:00 Out Room Time 05/27/20 15:19:00 Anesthesia Start Time 05/27/20 14:12:00 Stop Time 05/27/20 15:19:00 Anesthesia Ready 05/27/20 14:12:00 Surgery / Procedure Times Start Time 05/27/20 14:35:00 Stop Time 05/27/20 15:09:00 Last Modified By: Jose Raul Nelson RN 05/27/20 15:19:18 [facility] IntraOp Case Times Audit 05/27/20 15:19:18 Washing Machine Operator: ALEITHADAVIS Modifier: ALEITHADAVIS <+> 1 Out Room Time <+> 1 Stop Time 05/27/20 15:12:04 Washing Machine Operator: ALEITHADAVIS Modifier: ALEITHADAVIS <+> 1 Stop Time 05/27/20 14:36:19 Washing Machine Operator: ALEITHADAVIS Modifier: ALEITHADAVIS <+> 1 Start Time [facility] IntraOp Communication Entry 1 Communication To Family/Significant other Comment START OF PROCEDURE Communication By Jose Raul Nelson RN Date and Time 05/27/20 14:37:00 Last Modified By: Jose Raul Nelson RN 05/27/20 14:39:20 [facility] Intra[facility] Counts Verification Entry 1 Procedure Sacroiliac Joint Fusion Count Info Count Type Sponge, Sharps, Miscellaneous Counts Verification Baseline/pre-procedure Sequence Count Results Not Applicable Counts Performed By Count Performed By WYATT ARRINGTON, OR (Scrub) TECH Count Performed By Jose Raul Nelson RN (RN) Last Modified By: Jose Raul Nelson RN 05/27/20 14:39:32 [facility] IntraOp Counts Final Entry 1 Procedure Sacroiliac Joint Fusion Final Count Info Count Type Sponge, Sharps, Miscellaneous Counts Verification Skin Closure/end of Sequence procedure Count Results Correct, surgeon notified Counts Performed By Count Performed By WYATT ARRINGTON, OR (Scrub) TECH Count Performed By Jose Raul Nelson RN (RN) Last Modified By: Jose Raul Nelson RN 05/27/20 14:54:18 [facility] IntraOp Counts Final Audit 05/27/20 14:54:18 Washing Machine Operator: [email or web address] Modifier: ALEITHADAVIS 1 <*> Procedure Sacroiliac Joint Fusion 1 <+> Count Performed By (Scrub) 1 <+> Count Performed By (RN) [facility] IntraOp Departure from OR Entry 1 Integumentary Assessment Integumentary WDL Assessment WDL Transfer/Handoff Transfer to PACU Phase I Handoff Method Bedside/Face to face Post-op Transport Bed (including Via specialty) Patient Transport Jose Raul Nelson RN, Accompanied by PHILIP JAIN CRNA-ANS Last Modified By: Jose Raul Nelson RN 05/27/20 14:54:10 [facility] IntraOp Dressing and Packing Entry 1 Type Dressing Location RIGHT SI Wound Dressing Item Occlusive dressing, Skin Closure Glue Applied By JAVY ARAIZA PA-C Other Comments DERMABOND JULIO Last Modified By: Jose Raul Nelson RN 05/27/20 14:39:58 [facility] IntraOp Fire Risk Assessment Entry 1 Fire Info Surgical Site or 0- No Incision Above the Xyphoid Open O2 Source 0- No (Mask or Cannula) Available Ignition 1- Yes (ESU, Laser, Light Source) Fire Risk 1 Assessment Score Fire Score Fire Risk Yes Assessment Complete Fire Risk Jose Raul Nelson RN Assessment Verified By Fire Risk 05/27/20 14:00:00 Assessment Verified Date/Time Fire Risk Standard Fire Yes Safety Precautions Followed Last Modified By: Jose Raul Nelson RN 05/27/20 14:40:02 [facility] IntraOp General Case Chief Solution Architect 1 Case Information OR OR 01 [facility] Case Level 1 Room Verified Yes Wound Class I - Clean Specialty SN Neurosurgery Anesthesia Type General ASA Class 3 Diagnosis Preop Diagnosis RIGHT SI JOINT PAIN Postop Same As Preop Yes Postop Diagnosis RIGHT SI JOINT PAIN Last Modified By: Jose Raul Nelson RN 05/27/20 14:40:13 [facility] IntraOp Implant Log Entry 1 Entry 2 Entry 3 Type Implant (Synthetic) Implant (Synthetic) Implant (Synthetic) Implant Log Implant Type Hardware Hardware Hardware Tissue Implant Type Implant IMP IFUSE 3D IMP IFUSE 3D IMP IFUSE 3D Identification [id number] Description Implant Quantity 1 1 1 Implant Site RIGHT SI RIGHT SI RIGHT SI Implant Identification Model Number Implant Identification Serial Number Implant [id number] Identification Lot Number Implant [employer]one [employer]one [employer]one [employer] Identification Parent Trainer Name: Implant [id number] Identification Catalog Number Implant Size Implant Has an Yes Yes Yes Expiration Date Implant Expiration 10/08/24 12/17/24 12/17/24 Date Wasted Radioactive Material Time Implanted Tissue Implant Continue for Tissue Implant Documentation Tissue Identification Number Graft Prep Per Parent Trainer Instructions: Tissue Preparation Method: Reconstitution Solution: Reconstitution Solution Lot Number Reconstitution Solution Expiration Date: Thawing Solution Thawing Solution Lot Number Thawing Solution Expiration Date Preparation Materials, Other Preparation Materials, Other Lot Number Preparation Materials, Other Expiration Date Tissue Prepared/Processed By Parent Trainer Paperwork Completed Implant Type Comment Last Modified By: Jose Raul Nelson RN Davis, Aleitha E, RN Davis, Aleitha E, RN 05/27/20 14:53:21 05/27/20 14:53:21 05/27/20 14:53:21 [facility]Op Implant Log Audit 05/27/20 14:53:21 Washing Machine Operator: JS Modifier: JS <+> 1 Implant Identification Description <+> 1 Implant Identification Lot Number <+> 1 Implant Identification Parent Trainer Name: <+> 1 Implant Expiration Date <+> 1 Implant Identification Catalog Number <+> 2 Implant Identification Description <+> 2 Implant Identification Lot Number <+> 2 Implant Identification Parent Trainer Name: <+> 2 Implant Expiration Date <+> 2 Implant Identification Catalog Number <+> 3 Implant Identification Description <+> 3 Implant Identification Lot Number <+> 3 Implant Identification Parent Trainer Name: <+> 3 Implant Expiration Date <+> 3 Implant Identification Catalog Number [facility] IntraOp Intraoperative Assessment Entry 1 Valid History / Yes Physical in Chart Preoperative Yes Checklist Reviewed/Evaluated Allergies Reviewed Yes Patient is Latex No Sensitive Isolation Not applicable Precautions Noted Level of WDL Consciousness (WDL = Alert, Oriented to Person, Place, and Time) Skin Assessment Yes Verified Present Upon IVs Arrival to OR Last Modified By: Jose Raul Nelson RN 05/27/20 14:41:06 [facility] Intraoperative Equipment Entry 1 Type Equipment Equipment Equipment Nasreen Suction System Setting HIGH Intraop Monitoring Electrocardiogram Three lead placement (ECG) Electrode Placement Blood Pressure Non-Invasive BP Device Source Antiembolic Devices Antiembolic Devices Sequential compression device, knee high Antiembolic Device Bilateral Location Scopes Photo/Video Documentation Photo No Video No Last Modified By: Jose Raul Nelson RN 05/27/20 14:41:11 [facility] IntraOp Medication Admin Entry 1 Medication/Irrigant ANESTHETIC COCKTAIL-TAMIKO Route of INJECTION Administration Dose Administered By SIERRA MORRISON MD-ORT Procedure Irrigation Last Modified By: Jose Raul Nelson RN 05/27/20 14:41:20 [facility] Patient Positioning Entry 1 Procedure Sacroiliac Joint Fusion Body Position Prone Left Arm Position Secured on padded arm board Right Arm Position Secured on padded arm board Left Leg Position Uncrossed, parallel Right Leg Position Uncrossed, parallel Feet Uncrossed Yes Pressure Points Yes Checked Positioning Devices Arm Board, Head Rest, Pillows, Safety Strap, Thighs, Brad Table, Joshua Frame Device Position PRONE VIEW HEAD REST USED BY ANESTHESIA, PILLOWS UNDER LOWER LEGS, GEL PADS UNDER ARMS Positioned By Jose Raul Nelson RN, PHILIP JAIN V, TIM, JAVY ARAIZA, GRABIEL, SIERRA MORRISON MD-ORT Position Verified Positioning Yes Verified by Anesthesia Positioning Yes Verified by Surgeon Last Modified By: Jose Raul Nelson RN 05/27/20 14:41:16 [facility] Sign In Entry 1 Patient, Site, Yes Procedure Identified Surgical Consent Yes Confirmed Relevant Surgical Yes Documents Available Surgical Site Yes Marked by person performing procedure Anesthesia Machine Yes Check Completed Medication Checks Yes Completed Allergies Yes Airway Difficult No Airway/Aspiration Risk Difficult Yes Airway/Aspiration Intervention Equipment Available Blood Loss Risk No Blood Loss Yes Intervention Equipment Prepared and Ready Blood Identifiers Not applicable Verified Per Policy Hypothermia Risk Yes Warming Measures Yes Taken Last Modified By: Jose Raul Nelson RN 05/27/20 14:41:25 [facility] Intra Op Sign Out Entry 1 RN Confirmation Surgical Yes Procedure(s) Identified Instrument, Sponge Yes and Sharps Counts Correct/Documented Equipment Problems N/A Documented Specimen Labeled N/A Correctly Urinary Catheter N/A Documented in IView Neves Patient Yes Recovery Concerns Reviewed with Anesthesia Provider, Surgeon and RN Neves Patient Yes Management Concerns Reviewed with Anesthesia Provider, Surgeon and RN Safety Checklist Yes Elements Complete? RN Sign Out Jose Raul Nelson RN Signature RN Sign Out 05/27/20 15:12:00 Signature Date/Time Plan of Care Outcome - Fire Risk OUTCOME STATEMENT: Goal met Patient is free from injury related to surgical fire Plan of Care Outcome - Pt Positioning OUTCOME STATEMENT: Goal met Absence of signs and symptoms of positioning injury. Plan of Care Outcome - Skin Prep OUTCOME STATEMENT: Goal met Intraoperative care is consistent with measures to prevent infection Plan of Care Outcome - Xray/Images OUTCOME STATEMENT: Goal met Absence of observable signs or symptoms of radiation injury Plan of Care Outcome - Counts OUTCOME STATEMENT: Goal met Absence of signs and symptoms of injury related to extraneous objects Last Modified By: Jose Raul Nelson RN 05/27/20 15:12:06 [facility] Intra Op Sign Out Audit 05/27/20 15:12:06 Washing Machine Operator: ALEITHADAVIS Modifier: ALEITHADAVIS <+> 1 RN Sign Out Signature Date/Time 05/27/20 14:41:29 Washing Machine Operator: ALEITHADAVIS Modifier: ALEITHADAVIS <+> 1 OUTCOME STATEMENT: Absence of signs and symptoms of injury related to extraneous objects [facility] IntraOp Skin Prep Entry 1 Procedure Sacroiliac Joint Fusion Prescribed Yes Pre-Surgical Prep Completed Prep Area RIGHT SI Intraop Prep Integumentary WDL Assessment WDL Prep Agents Chloraprep Prep by Jose Raul Nelson RN Hair Removal Methods No hair removal performed Last Modified By: Jose Raul Nelson RN 05/27/20 14:41:38 [facility] IntraOp Surgical Procedures Entry 1 Procedure Sacroiliac Joint Fusion Additional RIGHT SACROILIAC JOINT Procedure FUSION Description Primary Procedure Yes Primary Surgeon SIERRA MORRISON MD-ORT Start 05/27/20 14:35:00 Stop 05/27/20 15:09:00 Anesthesia Type General Specialty SN Neurosurgery Wound Class I - Clean Last Modified By: Jose Raul Nelson RN 05/27/20 15:24:35 [facility]Op Surgical Procedures Audit 05/27/20 15:24:35 Washing Machine Operator: ALEITHADAVIS Modifier: ALEITHADAVIS 1 <*> Procedure Sacroiliac Joint Fusion 1 <*> Additional Procedure Description LEFT SACROILIAC JOINT FUSION 05/27/20 15:12:06 Washing Machine Operator: ALEITHADAVIS Modifier: ALEITHADAVIS <+> 1 Stop [facility] IntraOp Temp Regulation Devices Entry 1 Temp Regulation Temperature Forced Air Warming Regulation Device device Temperature Upper body Regulation Site Temperature PHILIP JAIN V, Regulation Device PHP DEVELOPER-ANS Applied by Last Modified By: Jose Raul Nelson RN 05/27/20 14:41:43 [facility]Op Time Out Entry 1 Procedure to be Sacroiliac Joint Fusion Performed Time Out Time Out Pause Time 05/27/20 14:34:00 All activity Yes suspended (unless life threatening emergency) Team Verbally Correct patient Confirms Information identity, Correct side and site are marked, Consent form is present and accurate, Agreement on the procedure to be done, Correct patient position, Relevant images/results properly labeled/appropriately displayed, Confirm antibiotics have been administered, Confirm the skin prep has dried, Confirm prosthesis/implant/devic e is present, Performed in location of procedure after prepped/draped Antibiotic Yes Prophylaxis Administered Or In Progress Within the Last 60 Minutes Beta Darien N/A Administered Venous Yes Thromboembolism Prophylaxis Required Anticipated Critical Events Surgeon None expected Anesthesia Provider None expected Nursing Assures Sterility of instruments, Implant Availability Essential Imaging Yes Labeled and Displayed Last Modified By: Jose Raul Nelson RN 05/27/20 14:42:03 [facility]Op X-Ray and Images Entry 1 X-Ray/Imaging Type Fluoroscopy Fluoroscopy Type C-Arm Band Aid Machine Operator Name Holly Mcguire, Casing Inspector Protective Devices Yes Used Last Modified By: Jose Raul Nelson RN 05/27/20 14:42:09 Case Comments <None> Finalized By: Jose Raul Nelson, RN Document Signatures Signed By: Jose Raul Nelson RN 05/27/20 15:19 Jose Raul Nelson RN 05/27/20 15:24 Jose Raul Nelson RN 05/28/20 17:01 Unfinalized History Date/Time Username Reason for Unfinalizing Freetext Reason for Unfinalizing 05/27/20 15:24 ALEITHADAVI Modify Pick List S 05/28/20 16:59 ALEITHADAVI Modify Pick List S Electronically signed by [facility] Conversion Ruby On Rails Developer Cerner at 03/07/2023 9:24 AM CDT documented in this encounter Plan of Treatment Not on file documented as of this encounter Visit Diagnoses Not on filedocumented in this encounter Care Teams Customer Order Clerk Relationship Specialty Start Date End Date Fred Jameson PA [address] [place], [place] [id number] PCP - General Physician Retanned Leather Roller 12/11/23 Tadeo Nieves PA-C [address] [facility] [address] floor [place], [place] [id number] Physician Retanned Leather Roller 01/27/23 documented as of this encounter
--- OUTSIDE RECORDS SUMMARY | 2025-05-01 09:29 | XMS_ITS | Data Portability ---
Author Organization [place] - [facility] Address [address] [place] [address] Assessment Encounter Date Assessment Date Assessment LastModified by Organization Details LastModified Time 12/11/2024 12/11/2024 New patient presented for admission to the practice. Studies ordered as below. Discussed plan with patient, who expressed understanding . Follow up as noted below. Will evaluate labs and then proceed with follow up and medication management plan. Not available 12/11/2024 21:46:20 Plan of Treatment Reminders Order Date Submit Date Provider Last Modified By Organization Details Last Modified Time Details Appointments None recorded . Lab HbA1c (hemoglo bin A1c), blood 025 12/11/19 25 SUJEY [facility], [address], [address], [place], [address], 5 04:10:32 CMP, serum or plasma 025 12/11/19 25 SUJEY [facility], [address], [address], [place], [address], 5 04:10:30 CBC w/ auto diff 025 12/11/19 25 SUJEY [facility], [address], [place] [address], [place], [address], 5 04:10:30 lipid panel, serum 025 12/11/19 25 SUJEY [facility], [address], [address], [place], [address], 5 04:10:31 Referral None recorded . Procedures None recorded . Surgeries None recorded . Imaging None recorded . Medication Orders None recorded . Patient TargetsNo targets recorded. Patient Instructions Encounter Date Encounter Id Patient Instructions Last Modified By Organization Details Last Modified Time 12/11/2024 [id number] learning about type 2 diabetes [email or web address] Not available 12/11/2024 10:45:43 type 2 diabetes: care instructions [email or web address] Not available 12/11/2024 10:45:43 hypothyroidism: care instructions Not available 12/11/2024 10:45:43 high cholesterol : care instructions [email or web address] Not available 12/11/2024 10:45:43 Reason for Referral None Reported. Results Created Date Observation Date Name Description Value Unit Range Abnormal Flag Note LastModifiedBy Organization Detail LastModifiedTime 12/11/1912/12/2024 CBC WITH DIFFE RENTI AL/PL ATELE T WBC 11.7 x10e3 /uL 3.4-10 .8 above high normal Not Available [facility] ([facility] [address] [place], [address], 12/12/2024 04:10:30 12/11/19 25 12/12/2024 CBC WITH DIFFE RENTI AL/PL ATELE T RBC 4.50 x10e6 /uL 3.77-5 .28 normal Not Available [facility] ([facility] [address] [place], [address], 12/12/2024 04:10:30 12/11/19 25 12/12/2024 CBC WITH DIFFE RENTI AL/PL ATELE T hemoglobin 12.8 g/dL 11.1-1 5.9 normal Not Available [facility] ([facility] [address] [place], [address], 12/12/2024 04:10:30 12/11/1912/12/2024 CBC WITH DIFFE RENTI AL/PL ATELE T hematocrit 39.8 % 34.0-4 6.6 normal Not Available [facility] ([facility] [address] [place], [address], 12/12/2024 04:10:30 12/11/19 12/12/2024 CBC WITH DIFFE RENTI AL/PL ATELE T MCV 88 fL 79-97 normal Not Available [facility] ([facility] [address] [place], [address], 12/12/2024 04:10:30 12/11/19 25 12/12/2024 CBC WITH DIFFE RENTI AL/PL ATELE T MCH 28.4 pg 26.6-3 3.0 normal Not Available [facility] ([facility]) [address], [place], [address], 12/12/2024 04:10:30 12/11/19 25 12/12/2024 CBC WITH DIFFE RENTI AL/PL ATELE T MCHC 32.2 g/dL 31.5-3 5.7 normal Not Available [facility] ([facility] [address] [place], [address], 12/12/2024 04:10:30 12/11/19 25 12/12/2024 CBC WITH DIFFE RENTI AL/PL ATELE T RDW 14.5 % 11.7-1 5.4 Not Available [facility] ([facility] [address] [place], [address], 12/12/2024 04:10:30 12/11/19 25 12/12/2024 CBC WITH DIFFE RENTI AL/PL ATELE T platelets 236 x10e3 /uL 150-45 0 normal Not Available [facility] ([facility] [address] [place], [address], 12/12/2024 04:10:30 12/11/19 25 12/12/2024 CBC WITH DIFFE RENTI AL/PL ATELE T neutrophils 66 % not estab. normal Not Available [facility] ([facility] [address] [place], [address], 12/12/2024 04:10:30 12/11/19 25 12/12/2024 CBC WITH DIFFE RENTI AL/PL ATELE T lymphs 25 % not estab. normal Not Available [facility] ([facility] [address] [place], [address], 12/12/2024 04:10:30 12/11/19 25 12/12/2024 CBC WITH DIFFE RENTI AL/PL ATELE T monocytes 7 % not estab. normal Not Available [facility] ([facility] [address] [place], [address], 12/12/2024 04:10:30 12/11/19 25 12/12/2024 CBC WITH DIFFE RENTI AL/PL ATELE T eos 2 % not estab. normal Not Available [facility] ([facility]) [address], [place], [address], 12/12/2024 04:10:30 12/11/19 25 12/12/2024 CBC WITH DIFFE RENTI AL/PL ATELE T basos 0 % not estab. normal Not Available [facility] ([facility] [address] [place], [address], 12/12/2024 04:10:30 12/11/19 25 12/12/2024 CBC WITH DIFFE RENTI AL/PL ATELE T immature cells ADULT DAYCARE COORDINATOR Not Available [facility] [address] [place], [address], 12/12/2024 04:10:30 12/11/19 25 12/12/2024 CBC WITH DIFFE RENTI AL/PL ATELE T neutrophils (absolute) 7.6 x10e3 /uL 1.4-7. 0 above high normal Not Available [facility] ([facility] [address] [place], [address], 12/12/2024 04:10:30 12/11/19 25 12/12/2024 CBC WITH DIFFE RENTI AL/PL ATELE T lymphs (absolute) 3.0 x10e3 /uL 0.7-3. 1 normal Not Available [facility] ([facility]) [address], [place], [address], 12/12/2024 04:10:30 12/11/19 25 12/12/2024 CBC WITH DIFFE RENTI AL/PL ATELE T monocytes(ab solute) 0.8 x10e3 /uL 0.1-0. 9 normal Not Available [facility] ([facility]) [address], [place], [address], 12/12/2024 04:10:30 12/11/1912/12/2024 CBC WITH DIFFE RENTI AL/PL ATELE T eos (absolute) 0.2 x10e3 /uL 0.0-0. 4 normal Not Available [facility] ([facility]) [address], [place], [address], 12/12/2024 04:10:30 12/11/19 25 12/12/2024 CBC WITH DIFFE RENTI AL/PL ATELE T baso (absolute) 0.0 x10e3 /uL 0.0-0. 2 normal Not Available [facility] ([facility]) [address], [place], [address], 12/12/2024 04:10:30 12/11/1912/12/2024 CBC WITH DIFFE RENTI AL/PL ATELE T immature granulocytes 0 % not estab. Not Available [facility] [address] [place], [address], 12/12/2024 04:10:30 12/11/19 25 12/12/2024 CBC WITH DIFFE RENTI AL/PL ATELE T immature grans (abs) 0.0 x10e3 /uL 0.0-0. 1 Not Available [facility] ([facility] [address], [place], [address], 12/12/2024 04:10:30 12/11/19 25 12/12/2024 CBC WITH DIFFE RENTI AL/PL ATELE T NRBC ADULT DAYCARE COORDINATOR Not Available [facility] [address], [place], [address], 12/12/2024 04:10:30 12/11/19 25 12/12/2024 CBC WITH DIFFE RENTI AL/PL ATELE T hematology comments: ADULT DAYCARE COORDINATOR Not Available [facility] [address], [place], [address], 12/12/2024 04:10:30 12/11/19 25 12/12/2024 COMP. METAB OLIC PANEL (14) glucose 124 mg/dL 70-99 above high normal Not Available [facility] ([facility]) [address], [place], [address], 12/12/2024 04:10:30 12/11/19 25 12/12/2024 COMP. METAB OLIC PANEL (14) BUN 18 mg/dL 6-24 normal Not Available [facility] [address] [place], [address], 12/12/2024 04:10:30 12/11/19 25 12/12/2024 COMP. METAB OLIC PANEL (14) creatinine 1.03 mg/dL 0.57-1 .00 above high normal Not Available [facility] ([facility]) [address], [place], [address], 12/12/2024 04:10:30 12/11/19 25 12/12/2024 COMP. METAB OLIC PANEL (14) eGFR 65 mL/mi n/1.7 3 >59 normal Not Available [facility] ([facility]) [address] [place], [address], 12/12/2024 04:10:30 12/11/19 25 12/12/2024 COMP. METAB OLIC PANEL (14) BUN/creatini ne ratio 17 9-23 normal Not Available [facility]) [address], [place], [address], 12/12/2024 04:10:30 12/11/19 25 12/12/2024 COMP. METAB OLIC PANEL (14) sodium 140 mmol/ L 134-14 4 normal Not Available [facility] [address] [place], [address], 12/12/2024 04:10:30 12/11/19 25 12/12/2024 COMP. METAB OLIC PANEL (14) potassium 4.4 mmol/ L 3.5-5. 2 normal Not Available [facility] [address] [place], [address], 12/12/2024 04:10:30 12/11/19 25 12/12/2024 COMP. METAB OLIC PANEL (14) chloride 100 mmol/ L 96-106 normal Not Available [facility] [address] [place], [address], 12/12/2024 04:10:30 12/11/19 25 12/12/2024 COMP. METAB OLIC PANEL (14) carbon dioxide, total 28 mmol/ L 20-29 normal Not Available [facility] ([facility] [address] [place], [address], 12/12/2024 04:10:30 12/11/19 25 12/12/2024 COMP. METAB OLIC PANEL (14) calcium 9.3 mg/dL 8.7-10 .2 normal Not Available [facility] ([facility] [address] [place], [address], 12/12/2024 04:10:30 12/11/19 25 12/12/2024 COMP. METAB OLIC PANEL (14) protein, total 6.1 g/dL 6.0-8. 5 normal Not Available [facility] ([facility] [address] [place], [address], 12/12/2024 04:10:30 12/11/19 25 12/12/2024 COMP. METAB OLIC PANEL (14) albumin 3.7 g/dL 3.8-4. 9 below low normal Not Available [facility] [address] [place], [address], 12/12/2024 04:10:30 12/11/19 25 12/12/2024 COMP. METAB OLIC PANEL (14) globulin, total 2.4 g/dL 1.5-4. 5 Not Available [facility] ([facility] [address] [place], [address], 12/12/2024 04:10:30 12/11/19 25 12/12/2024 COMP. METAB OLIC PANEL (14) bilirubin, total <0.2 mg/dL 0.0-1. 2 Not Available [facility] ([facility]) [address] [place], [address], 12/12/2024 04:10:30 12/11/19 25 12/12/2024 COMP. METAB OLIC PANEL (14) alkaline phosphatase 107 IU/L 44-121 normal Not Available [facility] [address] [place], [address], 12/12/2024 04:10:30 12/11/19 25 12/12/2024 COMP. METAB OLIC PANEL (14) AST (SGOT) 12 IU/L 0-40 normal Not Available [facility] ([facility] [address] [place], [address], 12/12/2024 04:10:30 12/11/19 25 12/12/2024 COMP. METAB OLIC PANEL (14) ALT (SGPT) 12 IU/L 0-32 normal Not Available [facility] [address] [place], [address], 12/12/2024 04:10:30 12/11/19 25 12/12/2024 LIPID PANEL cholesterol, total 115 mg/dL 100-19 9 normal Not Available [facility] ([facility] [address] [place], [address], 12/12/2024 04:10:31 12/11/19 25 12/12/2024 LIPID PANEL triglyceride s 113 mg/dL 0-149 normal Not Available [facility] [address] [place], [address], 12/12/2024 04:10:31 12/11/19 25 12/12/2024 LIPID PANEL HDL cholesterol 32 mg/dL >39 below low normal Not Available [facility] [address] [place], [address], 12/12/2024 04:10:31 12/11/19 25 12/12/2024 LIPID PANEL VLDL cholesterol courtney 21 mg/dL 5-40 Not Available [facility] [address] [place], [address], 12/12/2024 04:10:31 12/11/19 25 12/12/2024 LIPID PANEL LDL chol calc ([facility]) 62 mg/dL 0-99 Not Available [facility] [address] [place], [address], 12/12/2024 04:10:31 12/11/19 25 12/12/2024 LIPID PANEL LDL calc comment: ADULT DAYCARE COORDINATOR Not Available [facility] [address] [place], [address], 12/12/2024 04:10:31 12/11/19 25 12/12/2024 HEMOG LOBIN A1C hemoglobin A1C 6.8 % 4.8-5. 6 above high normal Predi abete s: 5.7 - 6.4 Diabe rosa: >6.4 [facility] [place] [facility] for adult s with diabe rosa: <7.0 Not Available [facility] ([facility]) [address], [place], [address], 12/12/2024 04:10:32 Result Notes None recorded. Problems Name Problem SNOMED Code Status Onset Date Resolution Date Notes Provider Name and Address Organization Details Recorded Time Type 2 diabetes mellitus 22560734 Active 2024 Sarah Gallenste in null, [place] - [facility] 09:58:44 Hypertensive disorder 49544218 Active 2024 [facility] [facility] 09:58:56 Hyperlipidemia 28120913 Active 2024 Sarah Gall[place] - [facility] 09:59:05 Anxiety 56158551 Active 2024 Sarah Gall[place] - [facility] 10:10:21 Depressive disorder 51011383 Active 2024 Sarah Gall[place] - [facility] 10:10:28 History of thyroidectomy 124619387 Active 2024 Sarah Gall[place]ste [place] - [facility] 10:14:23 Hypothyroidism 22678584 Active 2024 Kerri Hill, FELT HAT FLANGING OPERATOR [address], [place], [address] [facility] - [facility] 10:44:41 Problem Notes None recorded. Procedures Surgical History Date Name Laterality Status Provider Name and Address Organization Details Recorded Time Thyroid Lobectomy completed Sarah Tarango [place] - [facility] 12/11/2024 10:08:25 cholecystectomy completed Sarah [place] - [facility] 12/11/2024 10:08:41 Hysterectomy completed Sarah Tarango [place] - [facility] 12/11/2024 10:08:53 kidney stone analysis completed Sarah [place] [facility] 12/11/2024 10:09:07 biopsy of breast completed Sarah [place] [facility] 12/11/2024 10:09:15 excision of fallopian tube and surgical removal of ectopic completed Sarah [place]ango [place] - [facility] 12/11/2024 10:09:31 Imaging Results None recorded. Procedure Notes None recorded. Medical Equipment None Reported. Allergies No known drug allergies Medications Name Sig Start Date Stop Date Status Note LastModified by Organization Details LastModified Time celecoxib 200 mg capsule Take 1 capsule every day by oral route. active Not Available Not Available No t Available atorvasta tin 80 mg tablet Take 1 tablet every day by oral route. active Not Available Not Available No t Available Premarin 1.25 mg tablet 1 PO QD STARTED 03-05-082007 active Premarin Oral Tablet 1.25 mg;Recor ded Status: Recorded on: 08/23/20 08 10:04PM; User: raquel Not Available Not Available Not Available torsemide 20 mg tablet Take 1 tablet every day by oral route. active Not Available Not Available No t Available Phenergan 25 mg tablet one po q 6 hrs prn nausea 12/11 completed Phenerga n Oral Tablet 25 mg;Recor ded Status: Recorded on: 08/23/20 08 10:03PM; User: [email or web address] Not Available Not Available Not Available clopidogr el 75 mg tablet Take 1 tablet every day by oral route. active Not Available Not Available No t Available aspirin 81 mg tablet,de layed release Take 1 tablet every day by oral route. active Not Available Not Available No t Available Prevacid 30 mg capsule,d elayed release 1 po qD 12/11 completed Prevacid Oral Capsule, Delayed Release( E.C.) 30 mg;Recor ded Status: Recorded on: 08/23/20 08 10:05PM; User: hilda Not Available Not Available Not Available ondansetr on 8 mg disintegr ating tablet Place 1 tablet 3 times a day by translin gual route as needed. active Not Available Not Available No t Available citalopra m 20 mg tablet Take 1.5 tablets every day by oral route. active Not Available Not Available No t Available pantopraz ole 40 mg tablet,de layed release Take 1 tablet every day by oral route. active Not Available Not Available No t Available hydrochlo rothiazid e 25 mg tablet Take 1 tablet every day by oral route. active Not Available Not Available No t Available Vitamin D2 1,250 mcg (50,000 unit) capsule Take 1 capsule twice a week by oral route. active Not Available Not Available No t Available potassium 20 mg chewable tablet Take 1 tablet every day by oral route. active Not Available Not Available No t Available Synthroid 137 mcg tablet Take 1 tablet every day by oral route. active Not Available Not Available No t Available glipizide ER 10 mg 24 hr tablet,ex tended release Take 1 tablet twice a day by oral route. active Not Available Not Available No t Available semagluti de 0.25 mg or 0.5 mg (2 mg/1.5 mL) subcutane ous pen injector Inject 0.25 mg every week by subcutan eous route. 2024 active Not Available Not Available Not Avai lable Wegovy 0.25 mg/0.5 mL subcutane ous pen injector Inject 0.25 mg every week by subcutan eous route. 2024 active Not Available Not Available Not Avai lable Vitals Date Recorded Body weight Body mass index (BMI) Body height Respiratory rate Body temperature Provider Name and Address Organization Details Last Updated DateTime 5 435017. 2 g 37.2 kg/m2 165.1 cm 16 /min 98.2 [degF] Sarah otero [place] - [facility] 10:01:59 Social History Question Answer Notes LastModified by Clik[employer] Details LastModified Time Tobacco Smoking Status Current Every Day Smoker Sarah Sukhdeep avila, [place] - [facility] 12/11/2024 10:11:26 What Is Your Level Of Caffeine Consumption? Moderate Information not available 12/11/2024 What Type Of Diet Are You Following? REGULAR Information not available 12/11/2024 What Is The Highest Grade Or Level Of School You Have Completed Or The Highest Degree You Have Received? [id number] Information not available 12/11/2024 What Was The Date Of Your Most Recent Tobacco Screening? 12/11/2024 Information not available 12/11/2024 What Is Your Relationship Status? Information not available 12/11/2024 How Much Tobacco Do You Smoke? 0.5 PPD Information not available 12/11/2024 Sex: Female Functional Status Question Answer Note LastModified by Organizat ion Details LastModified Time Do you use any illicit or recreational drugs? No Information not available 12/11/2024 What is your level of alcohol consumption? None Information not available 12/11/2024 Are you currently employed? No Information not available 12/11/2024 What is your exercise level? Occasional Information not available 12/11/2024 Mental Status None recorded. Family History Relationship Description Onset Age of this Age Resolved Age Notes LastModified by Organization Details LastModified Time Maternal Grandmother Malignant tumor of breast [email or web address] Not available 10:12:37 Mother Dementia [email or web address] Not avail able 12/11/2024 10:12:51 Mother Hypertensive disorder [email or web address] Not available 10:13:08 Mother Heart disease [email or web address] Not available 10:13:29 Mother Disorder of thyroid gland [email or web address] Not available 10:13:52 Father Hypertensive disorder [email or web address] Not available 10:13:08 Father Diabetes mellitus [email or web address] Not available 10:13:17 Medical History No medical history recorded. Gynecological HistoryNo gynecological history recorded. Obstetrics History GPAL:G 0 P 0 0 0 0 Past Encounters Encounter ID Performer Location Encounter Start Date Encounter Closed Date Diagnosis/Indication Diagnosis SNOMED-CT Code Diagnosis ICD10 Code Diagnosis Note [id number] [facility] [address] [place] [address] 05/31/2007 00:00:00 [id number] [facility] [address] [place] [address] 06/12/2007 00:00:00 [id number] [facility] [address] [place] [address] 01/24/2008 00:00:00 [id number] [facility] [address] [address] 02/21/2008 00:00:00 [id number] [facility] [address] [address] 04/28/2008 00:00:00 [id number] [facility] [address] [place] [address] 06/26/2008 00:00:00 [id number] [facility] [address] [place] [address] 07/02/2008 00:00:00 [id number] YELENA Laboy [address] [place] [address] 12/11/2024 09:39:16 12/11/2024 11:02:25 Hyperlipidemia 88162373 E78.5 Type 2 su betes mellitus 81321948 E11.9 Hypothyroidism 40987747 E03.9 Health Concerns Section Related Observation LastModified by Organization Detai ls LastModified Time None Recorded Concern Status LastModified by Organization Details LastModified Time None Recorded Advance Directives Directive None Recorded Payers Insurance Date Sequence Insurance Name Policy Number Policy Zapata Covered Member ID Zapata Member ID Guarantor Name 12/11/2024 1 [place]MEDICARE REPLACEMENT HMO) [id number] Lainey Becerril [id number] Lainey Becerril Notes Date Note Type Note Provider Name and Address Organization Details Recorded Time 12/11/2024 text/html Lainey is a new patient here to establish Diabetic care,patient will see Alex CADENA as primary care. Stent placed 09/01/2024-99% blockage per her report, she follows with Dr. Gomez who has recommended Ozempic to lower CV risk due to comorbidities. She is on atorvastatin 80 mg daily, ASA, hctz, torsemide and plavix. She was on metformin previously but it was not effective. She is currently on glipizide ER BID. She does not routinely check her BS. She is unaware of her last A1C but does report that at her las office visit she had a BS of over 200. She denies any acute nausea, vomiting, fevers, myalgias. She is on synthroid for hypothyroid. She reports she is UTD on preventative screening but is unsure of the dates at this time. Time spent with patient including chart review assessment and plan:20 min. Kerri Hill APRN [address], [place], [address], [place] - [facility] 12/11/2024 21:46:36 OBGyn Episode No OBEpisode recorded.
--- OUTSIDE RECORDS SUMMARY | 2025-05-01 09:29 | XMS_ITS | Encounter Summary ---
Author Organization [facility] Address [address] [place] [address] Care Team Providers Care Fine Grade Bulldozer Operator Name Role Phone Tadeo Nieves PA-C Unavailable [phone] Fred Jameson Primary Care Provider Encounter Details Date Type Department Care Team (Late st Contact Info) Description 05/27/2020 Transcribed Document [facility] Family Medicine [address] [place] [address] ProviderBettie MD [address] [place] [address] Social History Tobacco Use Types Packs/Day Years Used Date Smoking Tobacco: Never Assessed Comments Unknown Sex and Gender Information Value Date Recorded Sex Assigned at Not on file Legal Sex Female 5:15 PM CDT Gender Identity Not on file Sexual Orientation Not on file documented as of this encounter Miscellaneous Notes * Cerner Conversion Note - Bettie ProviderMD - 05/27/2020 7:07 PM CDT Consult Phone Call Documentation Entered On: 05/28/2020 7:00 EDT Performed On: 05/27/2020 19:07 EDT by ANTON EATON Phone Call for Consults Consult Phone Call/Page Attempt : First call Physician Requested for Consult : WHITNEY HOWE MD-INT Physician Covering for Consult : WHITNEY HOWE MD-INT Date and Time Call Returned : 05/28/2020 7:00 EDT Physician Returning Call : WHITNEY HOWE MD-INT TYE, CHERYL - 05/28/2020 7:00 EDT documented in this encounter Plan of Treatment Not on file documented as of this encounter Visit Diagnoses Not on filedocumented in this encounter Care Teams Fine Grade Bulldozer Operator Relationship Specialty Start Date End Date Fred Jameson PA [address] [place] [address] PCP - General Physician Supply Chain Logistics Manager 12/11/23 Tadeo Nieves PA-C [address] [place] [address] Physician Supply Chain Logistics Manager 01/27/23 documented as of this encounter
--- OUTSIDE RECORDS SUMMARY | 2025-05-01 09:29 | XMS_ITS | Clinical Summary ---
Author Organization [employer] Address [address] [place] [address] Care Team Providers Care Seafood Manager Name Role Phone Tadeo Nieves PA-C Unavailable [phone] Fred Jameson Primary Care Provider Allergies [...] pain unrelieved 5min after 1st dose. Active Family History Medical History Relation Name Comments Diabetes Father Hypertension Father Diabetes Mother Hypertension Mother Cerebrovascular accident Relation Name Status Comments Father Alive Mother Alive Social History Tobacco Use Types Packs/Day Years [...] Date Job rded Speak language other than Bulgarian at home Not on file 12/02/2023 Want [...] 12/11/2023 2:14 PM EST Plan of Treatment Health Maintenance Due Date Last Done Comments CT Colonography 1970 Colonoscopy 1970 Colorectal Cancer Screening 1970 FOBT/FIT 1970 Fit-DNA (Cologuard) 1970 Sigmoidoscopy 1970 Depression Screening (12+) 1982 HIV Screening 1985 Hepatitis C Screening 1988 Pap Smear 1991 Lipid Panel 2015 DTAP/TDAP/TD VACCINES (2 - Td or Tdap) 10/03/2018 Shingles Vaccine (Zoster) (1 of 2) 2020 Pneumococcal 50+ years (2 of 2 - PPSV23) 12/06/2023 10/11/2023 COVID-19 VACCINE ( - season) 2024 Breast Cancer Screening 09/22/2024 09/22/2022, 03/30 Tobacco Cessation Counseling and Screening (12+) 12/11/2024 12/11/2023 Influenza Vaccine (Season Ended) 2025 08/30/20 23 Insurance BLUE CROSS/BLUE SHIELD Care Teams Seafood Manager Relationship Specialty Start Date End Date Fred Jameson PA [address] [place] [address] PCP - General Physician Shrinking Machine Operator 12/11/23 Tadeo Nieves PA-C [address] [facility] 2nd [place] [address] Physician Shrinking Machine Operator 01/27/23
--- OUTSIDE RECORDS SUMMARY | 2025-05-01 09:29 | XMS_ITS | Continuity of Care Document ---
Author Organization [place] [facility] [place] [facility] Address [address] [place] [address] Care Team Providers Care Extension Agent Name Role Phone PRABHAKAR MONTELONGO Primary Care Provider [phone] CAESAR MONTELONGO Referring Provider [phone] Assessment No assessment recorded. Plan of Treatment Reminders Order Date Submit Date Provider Last Modified By Organization Details Last Modified Time Details Appointments None recorded. Lab None recorded. Referral None recorded. Procedures None recorded. Surgeries None recorded. Imaging None recorded. Medication Orders Lantus Solostar U-100 Insulin 100 unit/mL (3 mL) subcutaneou s pen 2024 025 [facility], [address] [place], [address], 11:33:38 Patient TargetsNo targets recorded. Patient Instructions Encounter Date Encounter Id Patient Instructions Last Modified By Organization Details Last Modified Time 03/12/2025 [id number] I will see her back in the office in 3 weeks to evaluate her Ozempic use. She is going to contact both Orthopedics and Cardiology since she has implants from both to see if she can have MRI testing. Continue to follow with pain Clinic for evaluation and possible pain pump implant. [email or web address] Not available 03/12/2025 11:24:41 Reason for Referral None Reported. Problems Name Problem SNOMED Code Status Onset Date Resolution Date Notes Provider Name and Address Organization Details Recorded Time Morbid obesity 145259737 Active 2023 TAMMI YEE [address] [place] [address],[facility] [address], [place], [address] , [place] - [facility] 4 08:20:57 Meeks's esophagus 981752249 Active 2023 TAMMI YEE [facility] [employer],[address], [place], [address] , [place] [facility] [place] 4 08:24:25 Pain of multiple joints 44901040 Active 2023 TAMMI YEE [facility] [employer],[address], [place], [address] , [place] [facility] & [place] 4 16:38:30 Chronic kidney disease stage 3 769092426 Active 2023 TAMMI YEE [facility] [employer] [facility],[address], [place], [address] , [place] - [facility] & [place] 4 12:06:37 Chest pain 12499817 Active Kenia avila, [place] - [facility] [place] 5 15:37:19 History of cardiac catheteriz ation 4804658105005 0 Active Kenia Lyn null, [place] - [facility] - [place] & [place] 5 15:37:19 Hypertroph ic condition of skin 26237824 Active 2024 TAMMI YEE [facility] [employer] [facility],[address] [facility], [place], [address] , [place] [facility] & [place] 5 16:29:38 Skin lesion 08060645 Active 2024 TAMMI YEE [facility] [employer] [facility],[address], [place], [address] , [place] [facility] & [place] 5 16:29:46 Lumbar radiculopa thy 349263488 Active 2024 TAMMI YEE [facility] [employer],[address], [place], [address] , [place] [facility] [place] & [place] 5 10:59:56 Cough 76612674 Active 2021 Not Available [employer] 3 16:33:34 Acute upper respirator y infection 92976932 Active 2021 Not Available [employer] 3 16:33:34 Candidiasi s of mouth 70307845 Active 2021 Not Available [employer] 3 16:33:34 Acquired hypothyroi dism 394546268 Active 2022 Not Available [employer] 3 16:33:33 Depressive disorder 55939268 Active 2022 Not Available [employer] 3 16:33:34 Chronic obstructiv e pulmonary disease 48836785 Active 2022 Not Available [employer] 3 16:33:33 Vitamin D deficiency 95229639 Active 2022 Not Available [employer] 3 16:33:34 Anemia 134164950 Active 2022 Not Available [employer] 3 16:33:34 Iron deficiency 06902130 Active 2022 Not Available [employer] 3 16:33:34 Sleep pattern disturbanc e 43234041 Active 2022 Not Available [employer] 3 16:33:34 Daytime somnolence 156645524130 Active 2022 Not Available [employer] 3 16:33:33 Type 2 diabetes mellitus without complicati on 716306384 Active 2022 Not Available [employer] 3 16:33:34 Chronic fatigue syndrome 69541480 Active 2022 Not Available [employer] 3 16:33:34 Nausea 116115137 Active 2022 Not Available [facility] 3 16:33:34 Hypersomni a 21700163 Active 2022 Not Available [facility] 3 16:33:34 Obstructiv e sleep apnea of adult 9856999570561 Active 2022 Not Available [employer] 3 16:33:33 Poor short-term memory 339744361 Active 2022 Not Available [employer] 3 16:33:34 Prolapsed lumbar interverte bral disc 461135722 Active 2022 Not Available [employer] 3 16:33:33 Hypoxemia 082355520 Active 2022 Not Available [employer] 3 16:33:34 Dyspnea on exertion 93094647 Active 2022 Not Available [employer] 3 16:33:34 Hypomagnes emia 351946282 Active 2022 Not Available [employer] 3 16:33:33 Obstructiv e sleep apnea syndrome 65795602 Active 2022 Not Available [employer] 3 16:33:34 Severe recurrent major depression without psychotic features 79304433 Active 2022 Not Available [employer] 3 16:33:34 Uncontroll ed type 2 diabetes mellitus 422591101 Active 2022 Not Available [employer] 3 16:33:34 Body fluid retention 53011985 Active 2022 Not Available [employer] 3 16:33:34 Heart murmur 64642940 Active 2022 Not Available [employer] 3 16:33:34 Tight chest 51583217 Active 2022 Not Available [employer] 3 16:33:33 Tobacco dependence syndrome 51787682 Active 2022 Not Available [employer] 3 16:33:34 Diastolic dysfunctio n 9494640 Active 2022 Not Available [employer] 3 16:33:34 Angina pectoris 344892639 Active 2022 Not Available [employer] 3 16:33:33 Cardiovasc ular stress test abnormal 077373704 Active 2022 Not Available [employer] 3 16:33:34 Essential hypertensi on 60025105 Active 2022 Not Available [employer] 3 16:33:34 Coronary arterioscl erosis 89621212 Active 2022 Not Available [facility] 3 16:33:34 Iron deficiency anemia 14305828 Active 2022 Not Available [employer] 3 16:33:34 Increased frequency of urination 451893928 Active 2022 Not Available [employer] 3 16:33:33 Mixed urinary incontinen ce 395183938 Active 2022 Not Available [facility] 3 16:33:34 Edema of lower extremity 711664156 Active 2022 Not Available [facility] 3 16:33:33 Hyperlipid emia 67889059 Active 2022 Not Available [facility] 3 16:33:34 Acute laryngitis 9623896 Active 2022 Not Available [facility] 3 16:33:34 Acute urinary tract infection 472929886 Active 2022 Not Available [facility] 3 16:33:34 Intermitte nt claudicati on 22320902 Active 2022 Not Available [employer] 3 16:33:34 Peripheral vascular disease 394593830 Active 2023 Nghia Limon NP [address] [employer] [facility],[address], [address] , [place] - [facility] & [place] 4 16:01:24 Fever 046252013 Active 2023 Charla avila, [place] - [facility] [place] & [place] 4 08:08:21 Nausea and vomiting 94664199 Active 2023 TAMMI YEE [facility] [employer] [facility],it e [address] [place] [address], [address] , [place] - [facility] [place] & [place] 4 08:40:57 Hypokalemi a 09619891 Active 2023 TAMMI YEE [address] [employer] [facility],[address] [place] [address], [address] , [place] - [facility] - [place] & [place] 4 07:41:27 Altered bowel function 53768901 Active 2023 TAMMI YEE [facility] [employer],[address], [place], [address] , [place] [facility] [place] & [place] 4 14:47:38 Kidney stone 47351639 Active 2023 TAMMI YEE [facility] [employer] [facility],[address], [place], [address] , [place] - [facility] - [place] & [place] 4 10:54:55 Nasal congestion 31298148 Active 2023 Charla avila [place] - [facility] & [place] 4 10:16:38 Environmen sumit allergy 472583174 Active 2023 TAMMI YEE [facility] [employer],[address], [place], [address] , [place] [facility] [place] & [place] 4 11:07:23 Leukocytos is 623386683 Active 2023 TAMMI YEE [facility] [employer] [facility],[address], [place], [address] , [place] - [facility] - [place] & [place] 4 13:17:07 Folic acid deficiency 070981369 Active 2023 TAMMI YEE [facility] [employer] [facility],[address], [place], [address] , [place] [facility] [place] & [place] 4 16:27:03 Problem Notes None recorded. Procedures Surgical History Date Name Laterality Status Provider Name and Address Organization Details Recorded Time 024 Medicare Annual Wellness Visit Health Risk Assessment completed Charla TSAI - [facility] - [place] & [place] 10/24/2024 16:07:03 023 Medicare Annual Wellness Visit Health Risk Assessment completed Claudia TSAI - [facility] [place] 10/11/2023 11:06:58 023 LEFT HEART CATHETERIZATION (SURG) completed Nghia Limon NP [facility],[address], [place], [address], QUIN - [facility] - [place] & [place] 2023 09:50:14 022 completed Claudia TSAI - [facility] - [place] & [place] 10/11/2023 10:53:06 procedure on kidney completed [facility]wab [facility] [place] 03/04/2024 14:04:42 hysterectomy completed February Ron Villarreal [facility] [place] 09/27/2022 14:26:07 cholecystectomy completed February Ron TSAI - [facility] [place] 09/27/2022 14:26:17 Back Surgery completed February Ron Villarreal [facility] - [place] & [place] 09/27/2022 14:26:38 ureterorenoscopy with fragmentation and removal of calculus of kidney completed February QUIN [facility] [place] 09/27/2022 14:27:06 removal of ectopic fetus completed February Ron Villarreal [facility] [place] 09/27/2022 14:27:24 Imaging Results None recorded. Procedure Notes None recorded. Medical Equipment None Reported. Allergies Allergen ID Allergen Name Allergen Category Reaction Reaction Severity Criticality Documentation Date Start Date Code Code System Note Provider Name and Address Organization Details Recorded Time 50701 No known allergy (situatio n) Not available Not available Not available Not available 09/07/2023 32847 6003 SNOMED Claudia Stone [facility], QUIN Villarreal [facility] [place] 11:00:03 No known drug allergies Medications Name [...] propionate 50 mcg/actuati on nasal spray,suspe nsion Caspian 1 spray twice a day by intranasa [...] Updated DateTime 5 165.1 cm 38.1 kg/m2 267659. 05 g 97.3 [degF] 98 % 98 % 70 /min 126 mm[Hg] 74 mm[Hg] Charla Velasquez [facility] 5 10:23:20 Social History Question Answer Notes LastModified by Organizat ion Details LastModified Time Tobacco Smoking Status Never Smoker Not Available [facility] 11/16/2023 16:33:35 Do You Have An Advance [...] Bread, 1 Cup Of Whole-grain Or High-fiber Skdzd-pj-wiv Cereal, 1 2 Cup Of Cooked Cereal Such As Oatmeal, Or 1 2 Cup Of Cooked Brown Rice Or Whole Wheat Pasta.) 0 Servings Per Day Information not available 10/11/2023 In The Past 7 Days, How Many Servings Of Fried Or High-fat Foods Did You Typically Eat Each Day? (Examples Include Fried Chicken, Fried Fish, Rodriguez, Setswana Conover, Potato Chips, [place] Chips, Doughnuts, Creamy Salad Dressings, And Foods [...] Past 7 Days, How Often Have You [place] Sleepy During The Daytime? Always Information not [...] Do You Have A Medical Power Of Break Off Worker? No [email or web address] Information not available 10/24/2024 What Was The [...] History Condition Response Diabetes Y Arthritis Y Congestive Heart Failure (CHF) Y Back Problems Y Thyroid Problems Y COPD Y High Cholesterol Y Hypertension Y Gynecological History Statement/Question Response Menses Monthly N Abnormal Pap N 07/30/2022 Obstetrics History GPAL:G 0 P 0 0 0 0 Immunizations Vaccine Type Date Status Note Provider Nam e and Address Organization Details Recorded Time Influenza, split virus, quadrivalent, PF 1 completed Not Available [facility] 11/16/2023 16:33:36 Tdap 8 completed Not Available [facility] 11/16/2023 16:33:36 Influenza, split virus, quadrivalent, PF 3 completed TAMMI YEE [address], [place], [address], [place] - [facility] [place] & [place] 09/01/2023 09:03:47 Pneumococcal conjugate PCV 13 3 completed Tia Canales NP [address] [facility],[address], [place], [address], [place] - [facility] [place] 10/16/2023 09:13:17 Influenza, MDCK, trivalent, PF 4 completed Kenia avila, [place] - [facility] [place] 09/26/2024 08:58:38 Past Encounters Encounter ID Performer Location Encounter Start Date Encounter Closed Date Diagnosis/Indication Diagnosis SNOMED-CT Code Diagnosis ICD10 Code Diagnosis Note [id number] Keaton Keenan MD [facility] [address] [address] 02/24/2025 10:18:06 02/24/2025 11:06:51 Hyperlipidemia 43895857 E78.5 Pain of mu ltiple joints 15478495 M25.50 Mixed anxi ety and depressive disorder 155473149 F41.8 Coronary arteriosclerosis 13144783 I25.10 Vitamin D deficiency 347 69217 E55.9 Uncontroll ed type 2 diabetes mellitus 420240761 E11.65 Renewal of prescription 358501280 Z76.0 Difficulty sleeping 3013 75108 Z72.820 Edema of l ower extremity 816703438 R60.0 Meeks's esophagus 3029 22366 K22.70 Environmental allergy 42 9574032 T78.49XD Acquired hypothyroidism 000799532 E03.9 Lumbar radiculopathy 128 456516 M54.16 [id number] Keaton Keenan MD [facility] [place] [address] 03/12/2025 10:16:28 03/12/2025 11:00:34 Uncontrolled type 2 diabetes mellitus 956197874 E11.65 Chronic ob structive pulmonary disease 93992190 J44.9 Heart murmur 98282860 R0 1.1 Lumbar radiculopathy 128 334869 M54.16 Health Concerns Section Related Observation LastModified by Organization Detai ls LastModified Time None Recorded Concern Status LastModified by Organization Details LastModified Time None Recorded Payers Encounter Date Sequence Insurance Name Policy Number Policy Zapata Covered Member ID Zapata Member ID Guarantor Name 03/12/2025 1 [place]MEDICARE REPLACEMENT HMO) [id number] Lainey Beecrril [id number] Lainey Becerril Notes Date Note Type Note Provider Name and Address Organization Details Recorded Time 03/12/2025 text/html Patient presents today for evaluation. She has history of diabetes. In the past we have tried obtaining different medications but her insurance company will not cover it. They have finally approved her Ozempic and she will start that this week. She has 0.25 mg at home in his set up for weekly injections. She is still experiencing her lower back pain. She has been seen by Neurosurgery. She is being referred to pain clinic for possible pain pump implant. She still rates her pain a 7 almost 8 on a 1-10 scale. She does have a history of COPD. She uses an albuterol inhaler as well as taking Singulair. She does have a nebulizer machine at home when needed. No increased shortness of breath or wheezing. Reports she has not had any recent exacerbations of COPD. She does have a cardiac history. She is currently taking Plavix as well as torsemide. She follows with Cardiovascular Services. Blood pressure in office today is 126/74 with a heart rate of 70. She does have history of cardiac stents. TAMMI YEE [address] [place] [address],[address], [place], [address], [place] [facility] [place] [facility] [place] 03/12/2025 16:05:09 OBGyn Episode No OBEpisode recorded.
--- OUTSIDE RECORDS SUMMARY | 2025-05-01 09:30 | XMS_ITS | Encounter Summary ---
Author Organization [facility] [employer] Address [address] [place] [address] Care Team Providers Care Gardening Manager Name Role Phone Tadeo Nieves PA-C Unavailable [phone] Fred Jameson Primary Care Provider Reason for Referral * Consultation (Routine) - Closed Specialty Diagnoses / Procedures Referred By Contac t Referred To Contact Physical Therapy Diagnoses DDD (degenerative disc disease), lumbar Tadeo Nieves PA-C [address] [address] Phone: tel: fax: [facility] Physical Therapy [address] [facility] [place] [address] Phone: tel: fax:[phone] Referral ID Status Reason Start Date Expiration Date V isits Requested Visits Authorized [id number] Closed Specialty Services Required 01/24/2023 02/23/2023 6 6 Encounter Details Date Type Department Care Team (Late st Contact Info) Description 01/24/2023 Outside Orders [facility] Physical Therapy [address] [place] [address] Tadeo Nieves PA-C [address] [address] DDD (degenerative disc disease), lumbar (Primary Dx) Social History Tobacco Use Types Packs/Day Years Used Date Smoking Tobacco: Never Assessed Comments Unknown Sex and Gender Information Value Date Recorded Sex Assigned at Not on file Legal Sex Female 5:15 PM CDT Gender Identity Not on file Sexual Orientation Not on file documented as of this encounter Plan of Treatment Scheduled Referrals Name Type Priority Associated Diagnoses Orde r Schedule AMB REFERRAL TO PHYSICAL THERAPY EVALUATE, TREAT AND PLAN OF CARE Outpatient Referral Routine DDD (degenerative disc disease), lumbar Expected: 01/24/2023, Expires: 01/25/2024 documented as of this encounter Visit Diagnoses Diagnosis DDD (degenerative disc disease), lumbar- Primary Degeneration of lumbar or lumbosacral intervertebral disc documented in this encounter Care Teams Gardening Manager Relationship Specialty Start Date End Date Fred Jameson PA [address] [place] [address] PCP - General Physician French Lecturer 12/11/23 Tadeo Nieves PA-[place] [address] [facility] 2nd [place] [address] Physician French Lecturer 01/27/23 documented as of this encounter
--- OUTSIDE RECORDS SUMMARY | 2025-05-01 09:30 | XMS_ITS | Data Portability ---
Author Organization [place] - [facility] [place] Address [address] [place] [address] Care Team Providers Care Supervisor Molding Name Role Phone PRABHAKAR MONTELONGO Primary Care Provider [phone] CAESAR MONTELONGO Referring Provider Assessment No assessment recorded. Plan of Treatment Reminders Order Date Submit Date Provider Last Modified By Organization Details Last Modified Time Details Appointments None recorded. Lab None recorded. Referral None recorded. Procedures destruction , premalignan t lesions (PROC) - area surrounding skin lesion was cleansed with saline based solution. Injection lidocaine was administere d for anesthesia. Using cautery the skin lesion was destroyed. This was completed the area was cleansed off and covered with a bandage.Pat ient tolerated procedure well. 2024 025 [email or web address] Not available 07:18:03 Surgeries None recorded. Imaging None recorded. Medication Orders tramadol 50 mg tablet 2024 025 [facility], [address] [place], [address], 5 09:33:01 Ozempic 0.25 mg or 0.5 mg (2 mg/3 mL) subcutaneou s pen injector [address], [place], [address], 5 08:32:12 Lantus Solostar U-100 Insulin 100 unit/mL (3 mL) subcutaneou s pen 2024 025 [facility], [address] [place], [address], 5 11:33:38 Synthroid 137 mcg tablet 2024 025 [facility], [facility] [address] [facility] [address], [place], [address], 5 11:04:06 montelukast 10 mg tablet 2024 025 [facility], [facility]., [address] [place] [address] C, [place], [address], 5 11:03:58 hydrochloro thiazide 25 mg tablet 2024 025 [facility], [facility]., [address] [facility] [address], [place], [address], 5 11:04:03 pantoprazol e 40 mg tablet,anastacia yed release 2024 025 [facility], [facility]., [address] [facility] [address], [place], [address], 5 11:04:10 glipizide 10 mg tablet 2024 025 [facility], [facility]., [address] [facility] [address], [place], [address], 5 11:04:11 Lantus Solostar U-100 Insulin 100 unit/mL (3 mL) subcutaneou s pen 2024 025 [email or web address] Not available 5 10:25:47 ondansetron 8 mg disintegrat ing tablet 2024 025 [facility], [facility]., [address] [facility] [address], [place], [address], 5 11:04:07 clopidogrel 75 mg tablet 2024 025 [facility], [facility]., [address] [facility] [address], [place], [address], 5 11:03:58 tramadol 50 mg tablet 2024 025 [facility], [address] [place], [address], 5 15:24:42 trazodone 50 mg tablet 2024 025 [facility], [facility]., [address] [facility], [place], [address], 5 11:04:00 atorvastati n 80 mg tablet 2024 025 [facility], [facility]., [address] [facility], [place], [address], 5 11:04:09 citalopram 20 mg tablet 2024 025 [facility], [facility]., [address] [facility], [place], [address], 5 11:04:02 torsemide 20 mg tablet 2024 025 [facility], [facility]., [address] [facility], [place], [address], 5 11:04:00 ergocalcife rol (vitamin D2) 1,250 mcg (50,000 unit) capsule 2024 025 [facility], [facility]., [address] [facility], [place], [address], 11:04:07 Celebrex 200 mg capsule 2024 025 [facility] [address] [place] [address], [place], [address], 11:04:01 Zithromax Z-Kris 250 mg tablet 2024 025 [facility], [address] [place], [address], 10:30:05 Patient TargetsNo targets recorded. Patient Instructions Encounter Date Encounter Id Patient Instructions Last Modified By Organization Details Last Modified Time 01/13/2025 [id number] After the procedure was completed patient began feeling lightheaded and shaky. She was administered some glucose supplements. Her condition resolved [email or web address] Not available 01/13/2025 11:59:19 02/24/2025 [id number] she has an appointment with a neurosurgeon on 03/17/2025 regarding her back pain [email or web address] Not available 02/24/2025 11:04:29 03/12/2025 [id number] I will see her back in the office in 3 weeks to evaluate her Ozempic use. She is going to contact both Orthopedics and Cardiology since she has implants from both to see if she can have MRI testing. Continue to follow with pain Clinic for evaluation and possible pain pump implant. [email or web address] Not available 03/12/2025 11:24:41 Reason for Referral None Reported. Results Created Date Observation Date Name Description Value Unit Range Abnormal Flag Note LastModifiedBy Organization Detail LastModifiedTime 12/16/1912/16/2024 CBC WITH AUTO DIFF WBC 12.9 10 4.5-11 .5 high Not Available [facility] (Lab) [address] [facility] , [place], [address], 12/16/2024 19:29:44 12/16/19 25 12/16/2024 CBC WITH AUTO DIFF RBC 4.97 10 4.00-5 .40 Not Available [facility] (Lab) [address] [place], [address], 12/16/2024 19:29:44 12/16/19 25 12/16/2024 CBC WITH AUTO DIFF hemoglobin 13.9 g/dL 12.0-1 5.0 Not Available [facility] (Lab) [address] [place], [address], 12/16/2024 19:29:44 12/16/19 25 12/16/2024 CBC WITH AUTO DIFF hematocrit 43.7 % 35.0-4 9.0 Not Available [facility] (Lab) [address] [facility], [address], 12/16/2024 19:29:44 12/16/19 25 12/16/2024 CBC WITH AUTO DIFF MCV 87.9 fL 80-100 Not Available [facility] (Lab) [address] [facility], [address], 12/16/2024 19:29:44 12/16/19 25 12/16/2024 CBC WITH AUTO DIFF MCH 28.0 pg 26-32 Not Available [facility] (Lab) [address] [place], [address], 12/16/2024 19:29:44 12/16/19 25 12/16/2024 CBC WITH AUTO DIFF MCHC 31.8 g/dL 32-36 low Not Available [facility] (Lab) [address] [place], [address], 12/16/2024 19:29:44 12/16/19 25 12/16/2024 CBC WITH AUTO DIFF RDW 16.0 % 11.5-1 4.5 high Not Available [facility] (Lab) [address] [place], [address], 12/16/2024 19:29:44 12/16/19 25 12/16/2024 CBC WITH AUTO DIFF platelet count 285 10 150-45 0 Not Available [facility] (Lab) [address] [place], [address], 12/16/2024 19:29:44 12/16/19 25 12/16/2024 CBC WITH AUTO DIFF mean platelet volume 11.1 fL 6.8-10 .2 high Not Available [facility] (Lab) [address] [facility] [place], [address], 12/16/2024 19:29:44 12/16/19 25 12/16/2024 CBC WITH AUTO DIFF manual differential NOT INDICA ROSA Not Available [facility] (Lab) [address] [place], [address], 12/16/2024 19:29:44 12/16/19 25 12/16/2024 CBC WITH AUTO DIFF ne% 53.9 % 50-70 Not Available [facility] (Lab) [address] [place], [address], 12/16/2024 19:29:44 12/16/19 25 12/16/2024 CBC WITH AUTO DIFF lymphs 37.2 % 18-42 Not Available [facility] (Lab) [address] [place], [address], 12/16/2024 19:29:44 12/16/19 25 12/16/2024 CBC WITH AUTO DIFF MO% 6.2 % 2-11 Not Available [facility] (Lab) [address] [facility], [address], 12/16/2024 19:29:44 12/16/19 25 12/16/2024 CBC WITH AUTO DIFF eo% 2.0 % 1-3 Not Available [facility] (Lab) [address] [place], [address], 12/16/2024 19:29:44 12/16/19 25 12/16/2024 CBC WITH AUTO DIFF ba% 0.5 % 0.0-2. 0 Not Available [facility] (Lab) [address] [place], [address], 12/16/2024 19:29:44 12/16/19 25 12/16/2024 CBC WITH AUTO DIFF neutrophils (absolute) 6.9 K/uL 2.0-6. 9 Not Available [facility] (Lab) [address] [place], [address], 12/16/2024 19:29:44 12/16/19 25 12/16/2024 CBC WITH AUTO DIFF lymphocytes (absolute) 4.8 K/uL 0.6-3. 4 high Not Available [facility] (Lab) [address] [place], [address], 12/16/2024 19:29:44 12/16/19 25 12/16/2024 CBC WITH AUTO DIFF monocytes (absolute) 0.8 K/uL 0.0-0. 9 Not Available [facility] (Lab) [address] [place], [address], 12/16/2024 19:29:44 12/16/19 25 12/16/2024 CBC WITH AUTO DIFF eosinophils (absolute) 0.3 K/uL 0.0-0. 7 Not Available [facility] (Lab) [address] [facility], [address], 12/16/2024 19:29:44 12/16/19 25 12/16/2024 CBC WITH AUTO DIFF basophils (absolute) 0.07 K/uL 0.0-0. 2 Not Available [facility] (Lab) [address] [place], [address], 12/16/2024 19:29:44 12/16/19 25 12/16/2024 CBC WITH AUTO DIFF nucleated RBC's 0 /100_ RBCs 0-0 Not Available [facility] (Lab) [address] [place], [address], 12/16/2024 19:29:44 12/16/19 25 12/16/2024 RETIC ULOCY TE COUNT reticulocyte count 1.7 % 0.5-1. 5 high Not Available [facility] (Lab) [address] [place], [address], 12/16/2024 19:36:47 12/16/19 25 12/16/2024 COMPR EHENS RODRIGO METAB OLIC PANEL sodium 140 mmol/ L 136-14 5 Not Available [facility] (Lab) [address] [place], [address], 12/16/2024 22:30:17 12/16/19 25 12/16/2024 COMPR EHENS RODRIGO METAB OLIC PANEL potassium 4.4 mmol/ L 3.5-5. 1 Not Available [facility] (Lab) [address] [place], [address], 12/16/2024 22:30:17 12/16/19 25 12/16/2024 COMPR EHENS RODRIGO METAB OLIC PANEL chloride 97 mmol/ L 98.0-1 07.0 low Not Available [facility] (Lab) [address] [place], [address], 12/16/2024 22:30:17 12/16/19 25 12/16/2024 COMPR EHENS RODRIGO METAB OLIC PANEL total CO2 34 mmol/ L 21-32 high Not Available [facility] (Lab) [address] [place], [address], 12/16/2024 22:30:17 12/16/19 25 12/16/2024 COMPR EHENS RODRIGO METAB OLIC PANEL anion gap 13.4 mmol/ L 5.0-15 .0 Not Available [facility] (Lab) [address] [place], [address], 12/16/2024 22:30:17 12/16/19 25 12/16/2024 COMPR EHENS RODRIGO METAB OLIC PANEL glucose 65 mg/dL 70-120 low Not Available [facility] (Lab) [address] [place], [address], 12/16/2024 22:30:17 12/16/19 25 12/16/2024 COMPR EHENS RODRIGO METAB OLIC PANEL BUN 16 mg/dL 7-18 Not Available [facility] (Lab) [address] [place], [address], 12/16/2024 22:30:17 12/16/19 25 12/16/2024 COMPR EHENS RODRIGO METAB OLIC PANEL creatinine 1.3 mg/dL 0.6-1. 0 high Not Available [facility] (Lab) [address] [place] [address] [place], [address], 12/16/2024 22:30:17 12/16/19 25 12/16/2024 COMPR EHENS RODRIGO METAB OLIC PANEL BUN/creatini ne ratio 12.3 ratio 9-21 Not Available [facility] (Lab) [address] [place], [address], 12/16/2024 22:30:17 12/16/19 25 12/16/2024 COMPR EHENS RODRIGO METAB OLIC PANEL estimated glom filtration rate 43 mL/mi n 60.0- low Not Available [facility] (Lab) [address] [place] [address] [place], [address], 12/16/2024 22:30:17 12/16/19 25 12/16/2024 COMPR EHENS RODRIGO METAB OLIC PANEL calcium 8.8 mg/dL 8.6-9. 8 Not Available [facility] (Lab) [address] [place] [address] [place], [address], 12/16/2024 22:30:17 12/16/19 25 12/16/2024 COMPR EHENS RODRIGO METAB OLIC PANEL bilirubin, total 0.3 mg/dL 0.2-1. 0 USE OF THIS ASSAY IS NOT RECOM BEV D FOR PATIE NTS UNDER GOING TREAT MENT WITH ELTRO MBOPA G DUE TO THE POTEN TIAL FOR FALSE LY ELEVA ROSA RESUL TS. Not Available [facility] (Lab) [address] [place], [address], 12/16/2024 22:30:17 12/16/19 25 12/16/2024 COMPR EHENS RODRIGO METAB OLIC PANEL AST (SGOT) 15 IU/L 15-37 Not Available [facility] (Lab) [address] [facility], [address], 12/16/2024 22:30:17 12/16/19 25 12/16/2024 COMPR EHENS RODRIGO METAB OLIC PANEL ALT (SGPT) 23 IU/L 12-78 Not Available [facility] (Lab) [address] [place] [address] [place], [address], 12/16/2024 22:30:17 12/16/19 25 12/16/2024 COMPR EHENS RODRIGO METAB OLIC PANEL alk phos 117 IU/L 54-369 Not Available [facility] (Lab) [address] [place] [address] [place], [address], 12/16/2024 22:30:17 12/16/19 25 12/16/2024 COMPR EHENS RODRIGO METAB OLIC PANEL total protein 6.9 g/dL 6.4-8. 2 Not Available [facility] (Lab) [address] [place], [address], 12/16/2024 22:30:17 12/16/19 25 12/16/2024 COMPR EHENS RODRIGO METAB OLIC PANEL albumin 3.6 g/dL 3.4-5. 0 Not Available [facility] (Lab) [address] [place] [address] [place], [address], 12/16/2024 22:30:17 12/16/19 25 12/16/2024 COMPR EHENS RODRIGO METAB OLIC PANEL globulin 3.3 g/dL 1.3-3. 5 Not Available [facility] (Lab) [address] [place], [address], 12/16/2024 22:30:17 12/16/19 25 12/16/2024 COMPR EHENS RODRIGO METAB OLIC PANEL alb/glob ratio 1.1 ratio 1.0-3. 9 Not Available [facility] (Lab) [address] [place], [address], 12/16/2024 22:30:17 12/16/19 25 12/16/2024 COMPR EHENS RODRIGO METAB OLIC PANEL osmolality, calculated 279 mOsm/ kg 272-29 5 Not Available [facility] (Lab) [address] [facility], [address], 12/16/2024 22:30:17 12/16/19 25 12/16/2024 IRON/ TIBC/ %SAT iron 48 ug/dL 50-175 low Not Available [facility] (Lab) [address] [facility], [address], 12/16/2024 22:31:19 12/16/19 25 12/16/2024 IRON/ TIBC/ %SAT iron binding capacity 305 mcg/d L 250-45 0 Not Available [facility] (Lab) [address] [facility] [place], [address], 12/16/2024 22:31:19 12/16/19 25 12/16/2024 IRON/ TIBC/ %SAT %sat 15.7 % 12.0-5 7.0 Not Available [facility] (Lab) [address] [facility], [address], 12/16/2024 22:31:19 12/16/19 25 12/16/2024 VITAM IN B12 vitamin B12 290 pg/mL 193-98 6 Not Available [facility] (Lab) [address] [facility] [place], [address], 12/16/2024 22:31:20 12/16/19 25 12/16/2024 FOLIC ACID folic acid 5.3 NG/mL 8.6-58 .9 low Not Available [facility] (Lab) [address] [facility], [address], 12/16/2024 22:31:21 12/16/19 25 12/16/2024 JESSICA TIN ferritin 73 NG/mL 8.0-38 8.0 Not Available [facility] (Lab) [address] [facility], [address], 12/16/2024 22:31:22 12/18/19 25 12/18/2024 GLUCO SE POINT OF CARE note See Note Order ing Provi jacqueline: Tasneem Scott MD Not Available [address] [place], [address], 12/18/2024 08:21:09 12/18/19 25 12/18/2024 GLUCO SE POINT OF CARE glucose point of care 94 mg/dL 70-99 normal Not Available [address] [place], [address], 12/18/2024 08:21:09 12/18/19 25 12/18/2024 GLUCO SE POINT OF CARE performing lab see note [facility] - [id number] [facility] [address] Not Available [address] [place], [address], 12/18/2024 08:21:09 12/18/19 25 12/18/2024 GLUCO SE POINT OF CARE note See Note Order ing Provi jacqueline: Tasneem Sctot MD Not Available [address] [place], [address], 12/18/2024 10:22:02 12/18/19 25 12/18/2024 GLUCO SE POINT OF CARE glucose point of care 98 mg/dL 70-99 normal Not Available [address] [place], [address], 12/18/2024 10:22:02 12/18/19 25 12/18/2024 GLUCO SE POINT OF CARE performing lab see note [facility] - PO [address] [facility] [place] [address] Not Available [address] [place], [address], 12/18/2024 10:22:02 01/16/20 25 01/16/2025 - nm gastr ic empty ing study [facility] Medica l Ce Name: INO KINGSLEY [facility] l [address] Phys: [place] [address] : 1969 Age: 54 Sex: F Acct: [id number] Loc: MARYANA PHONE #: Exam Date: 2024 Status : DEP CLI FAX #: Rad# [id number] Unit# [id number] Admit Date: 2024 EXAMS: CPT CODE: [id number] NM GASTRI C EMPTYI NG STUDY 04782 EXAMIN ATION: NUCLEA R MEDICI NE GASTRI C EMPTYI NG STUDY CLINIC AL INDICA TION: SEE. TECHNI QUE: After oral ingest ion of a radio- labele d nonsta ndard meal, sequen tial abdomi nal images were obtain ed for 90 minute s. Percen tage of activi ty emptyi ng the stomac h was calcul ated at [facility] interv als within 90 minute s. Geomet luis mean gastri c emptyi ng was calcul ated. RADIOP HARMAC EUTICA L: 1 mCi Tc-99m sulfur colloi d. COMPAR DINAH: None. FINDIN GS: Radiot racer activi ty from ingest ed meal is seen in the stomac h and demons trates progre ssive emptyi ng into the small bowel. Gastri c emptyi ng retent ion fracti on was calcul ated: 1 hour: 37 % retent ion (Valentina l is 30-90% ) 90 minute s: 10% IMPRES ROBBIE: No specif ic scinti graphi c eviden ce of gastro paresi s or rapid gastri c emptyi ng. Electr onical ly signed by: Rivas gupta MD 2024 08:51 AM EST RP Workst ation: [id number] Electr onical ly Signed by RIVAS GUPTA MD on 2024 at 0842 Report ed and signed by: RIVAS HARTMANN MD CC: Caesar CADENA; Shane Adams PA-C Dictat ed Date/T slick: 2024 (0842) Techno logist : BYRON HUTCHINS Transc ribed Date/T slick: 2024 (0842) Transc riptio nist: DR.IND GARCIA Electr onic Signat ure Date/T slick: 2024 (0842) Printe d Date/T slick: 2024 (0855) BATCH NO: N/A PAGE 1 Signed Report CC'ed Logic: Orderi ng Provid er: CHACHO NJ Attend ing Provid er: CHACHO NJ Referr ing Provid er: CHACHO NJ Consul ting Provid er: VIVEK [address] [place] [address] , [place], [address], 01/16/2025 11:03:27 01/17/20 25 01/17/2025 mamm scree yosef 2D [facility] [address] [place] [address] Phone: Fax: Name: LAINEY KINGSLEY Exam Date: 025 : 1969 Age 54 years Gender : F Access ion: [id number] Physic minerva: PRABHAKAR PARADA ty: [facility] HSV: Outpat ient Exam: MAMM SCREEN ING 2D & 3D EXAMIN ATION: MAMM SCREEN ING 2D & 3D . Histor y of benign right breast stereo tactic biopsy 2021. Histor y of benign left breast excisi on 2018. No curren t compla ints. HISTOR Y: Screen ing mammog lissette COMPAR DINAH: 12/27/19 23, 022 and 2019 TECHNI QUE: Bilate ral screen ing mammog lissette. CC and MLO views of both breast s were obtain ed with combin ation 2-D mammog lissette (DM)/d igital breast tomosy nthesi s (DBT) and interp reted with CAD. FINDIN GS: Breast Densit y: B - There are scatte red areas of fibrog landul ar densit y. Stable bilate ral post proced ural change s with centra l right breast clips. There are no suspic ious masses , calcif icatio ns or region s of distor tion on either side. IMPRES ROBBIE: No mammog raphic eviden ce of malign hugo. BI-RAD S CATEGO RY: CATEGO RY 2, BENIGN FINDIN GS RECOMM ENDATI ON: ANNUAL SCREEN ING IN 12 MONTHS Electr onical ly signed by: Benoit Puri MD 2024 10:42 AM EST RP Workst ation: [id number] [facility] BREAST DENSIT Y FC FOLLOW -UP CODE Dictat ed By: BENOIT ANGEL Transc ribed By: Transc ribed On: 025 10:16 AM Electr onical ly signed by: BENOIT ANGEL 025 Thank you for referr LAINEY Cheng to [facility]. Legall y authen ticate d by HOA TELLO 01-17 10:16: 23 CC'ed Logic: Orderi ng Provid er: VIVEK MAYNARD CC Provid er: VIVEK MAYNARD Attend ing Provid er: VIVEK MAYNARD Referr ing Provid er: VIVEK MAYNARD Admitt ing Provid er: VIVEK MAYNARD [email or web address] [facility] (Imaging) [address] [place] [address] [place], [address], 01/17/2025 16:11:24 Result Notes None recorded. Problems Name Problem SNOMED Code Status Onset Date Resolution Date Notes Provider Name and Address Organization Details Recorded Time Morbid obesity 950821395 Active 2023 TAMMI YEE [address] [place], [place] [address], [place], [address] , [place] - [facility]ira 4 08:20:57 Meeks's esophagus 456250266 Active 2023 TAMMI YEE [facility] [address], [place], [address] , [place] [facility] - [facility] & [place] 4 08:24:25 Pain of multiple joints 06237277 Active 2023 TAMMI YEE [facility],[address], [place], [address] , [place] [facility] - [facility] & [place] 4 16:38:30 Chronic kidney disease stage 3 813745067 Active 2023 TAMMI YEE [facility],[address], [place], [address] , [place] - [facility] & [place] 4 12:06:37 Chest pain 94780814 Active Kenia Lyn null, [place] - [facility] & [place] 5 15:37:19 History of cardiac catheteriz ation 9059909056515 0 Active Kenia Lyn null, [place] - [facility] & [place] 5 15:37:19 Hypertroph ic condition of skin 36934848 Active 2024 TAMMI YEE [facility],[address], [place], [address] , [place] [facility] - [facility] & [place] 5 16:29:38 Skin lesion 37406991 Active 2024 TAMMI YEE [facility],[address], [place], [address] , [place] [facility] - [facility] & [place] 5 16:29:46 Lumbar radiculopa thy 942955397 Active 2024 TAMMI YEE [facility] [address], [place], [address] , [place] [facility] - [facility] & [place] 5 10:59:56 Cough 42302956 Active 2021 Not Available [facility] 3 16:33:34 Acute upper respirator y infection 74732247 Active 2021 Not Available [facility] 3 16:33:34 Candidiasi s of mouth 67837442 Active 2021 Not Available [facility] 3 16:33:34 Acquired hypothyroi dism 657418578 Active 2022 Not Available [facility] 3 16:33:33 Depressive disorder 69798735 Active 2022 Not Available [facility] 3 16:33:34 Chronic obstructiv e pulmonary disease 40571720 Active 2022 Not Available [facility] 3 16:33:33 Vitamin D deficiency 88648502 Active 2022 Not Available [facility] 3 16:33:34 Anemia 237184958 Active 2022 Not Available [facility] 3 16:33:34 Iron deficiency 36213894 Active 2022 Not Available [facility] 3 16:33:34 Sleep pattern disturbanc e 42259399 Active 2022 Not Available [facility] 3 16:33:34 Daytime somnolence 699235496160 Active 2022 Not Available [facility] 3 16:33:33 Type 2 diabetes mellitus without complicati on 933252221 Active 2022 Not Available [facility] 3 16:33:34 Chronic fatigue syndrome 61966690 Active 2022 Not Available [facility] 3 16:33:34 Nausea 376930680 Active 2022 Not Available [facility] 3 16:33:34 Hypersomni a 79370698 Active 2022 Not Available [facility] 3 16:33:34 Obstructiv e sleep apnea of adult 5836133085726 Active 2022 Not Available [facility] 3 16:33:33 Poor short-term memory 700913276 Active 2022 Not Available [facility] 3 16:33:34 Prolapsed lumbar interverte bral disc 280626805 Active 2022 Not Available [facility] 3 16:33:33 Hypoxemia 696252857 Active 2022 Not Available [facility] 3 16:33:34 Dyspnea on exertion 86572400 Active 2022 Not Available [facility] 3 16:33:34 Hypomagnes emia 618334349 Active 2022 Not Available [facility] 3 16:33:33 Obstructiv e sleep apnea syndrome 23037356 Active 2022 Not Available [facility] 3 16:33:34 Severe recurrent major depression without psychotic features 64489482 Active 2022 Not Available [facility] 3 16:33:34 Uncontroll ed type 2 diabetes mellitus 672250877 Active 2022 Not Available [facility] 3 16:33:34 Body fluid retention 47406818 Active 2022 Not Available [facility] 3 16:33:34 Heart murmur 60570443 Active 2022 Not Available [facility] 3 16:33:34 Tight chest 64183254 Active 2022 Not Available [facility] 3 16:33:33 Tobacco dependence syndrome 12800241 Active 2022 Not Available [facility] 3 16:33:34 Diastolic dysfunctio n 6327033 Active 2022 Not Available [facility] 3 16:33:34 Angina pectoris 869894932 Active 2022 Not Available [facility] 3 16:33:33 Cardiovasc ular stress test abnormal 798139303 Active 2022 Not Available [facility] 3 16:33:34 Essential hypertensi on 40385489 Active 2022 Not Available [facility] 3 16:33:34 Coronary arterioscl erosis 73344943 Active 2022 Not Available [facility] 3 16:33:34 Iron deficiency anemia 84325495 Active 2022 Not Available [facility] 3 16:33:34 Increased frequency of urination 508144943 Active 2022 Not Available [facility] 3 16:33:33 Mixed urinary incontinen ce 715064546 Active 2022 Not Available [facility] 3 16:33:34 Edema of lower extremity 043020266 Active 2022 Not Available [facility] 3 16:33:33 Hyperlipid emia 36434734 Active 2022 Not Available [facility] 3 16:33:34 Acute laryngitis 0429572 Active 2022 Not Available [facility] 3 16:33:34 Acute urinary tract infection 452673551 Active 2022 Not Available [facility] 3 16:33:34 Intermitte nt claudicati on 57545448 Active 2022 Not Available [facility] 3 16:33:34 Peripheral vascular disease 466104261 Active 2023 Nghia Limon NP 99 [facility] e [address] [place] [address], [address] , [place] - [facility] [facility] & [place] 4 16:01:24 Fever 628069009 Active 2023 Charla Velasquez [facility], [place] - [place] [facility] & [place] 4 08:08:21 Nausea and vomiting 99127654 Active 2023 TAMMI YEE [facility],[address] [place] [address], [address] , [place] - [place] [facility] & [place] 4 08:40:57 Hypokalemi a 99121626 Active 2023 TAMMI YEE [facility],[address] [place] [address], [address] , [place] - [place] - [place] & [place] 4 07:41:27 Altered bowel function 13564647 Active 2023 TAMMI YEE [facility],[address], [place], [address] , [place] & [place] 4 14:47:38 Kidney stone 35387369 Active 2023 TAMMI YEE [facility],[address], [place], [address] , [place] & [place] 4 10:54:55 Nasal congestion 16051124 Active 2023 [place] [facility] & [place] 4 10:16:38 Environmen sumit allergy 879051819 Active 2023 TAMMI YEE [facility],[address], [place], [address] , [place] & [place] 4 11:07:23 Leukocytos is 732695999 Active 2023 TAMMI YEE [facility],[address], [place], [address] , [place] & [place] 4 13:17:07 Folic acid deficiency 841562438 Active 2023 TAMMI YEE [facility],[address], [place], [address] , [place] & [place] 4 16:27:03 Problem Notes None recorded. Procedures Surgical History Date Name Laterality Status Provider Name and Address Organization Details Recorded Time 024 Medicare Annual Wellness Visit Health Risk Assessment completed Charla TSAI - [place] - [place] & [place] 10/24/2024 16:07:03 023 Medicare Annual Wellness Visit Health Risk Assessment completed Claudia TSAI - [facility] & [place] 10/11/2023 11:06:58 023 LEFT HEART CATHETERIZATION (SURG) completed Nghia Limon NP [address] [facility],[address], [place], [address], QUIN [facility] & [place] 2023 09:50:14 022 completed Claudia Villarreal NT [facility] & [place] 10/11/2023 10:53:06 procedure on kidney completed Lizeth schwab QUIN [facility] & [place] 03/04/2024 14:04:42 hysterectomy completed February Ron TSAI [facility] & [place] 09/27/2022 14:26:07 cholecystectomy completed February Ron TSAI [facility] & [place] 09/27/2022 14:26:17 Back Surgery completed February Ron TSAI [facility] & [place] 09/27/2022 14:26:38 ureterorenoscopy with fragmentation and removal of calculus of kidney completed February Ron TSAI [facility] & [place] 09/27/2022 14:27:06 removal of ectopic fetus completed February Ron TSAI [facility] & [place] 09/27/2022 14:27:24 Imaging Results None recorded. Procedure Notes None recorded. Medical Equipment None Reported. Allergies Allergen ID Allergen Name Allergen Category Reaction Reaction Severity Criticality Documentation Date Start Date Code Code System Note Provider Name and Address Organization Details Recorded Time 15815 No known allergy (situatio n) Not available Not available Not available Not available 09/07/2023 77160 6003 SNOMED Claudia Stone [facility], QUIN Villarreal NT [facility] & [place] 11:00:03 No known drug allergies Medications Name [...] propionate 50 mcg/actuati on nasal spray,suspe nsion [place] 1 spray twice a day by intranasa [...] Details Last Updated DateTime 5 165.1 cm 37.1 kg/m2 630812. 1 g 97.3 [degF] 94 % 94 % 72 /min 128 mm[Hg] 80 mm[Hg] Charla Velasquez [facility] & [place] 5 08:04:56 Date Recorded Body height Body mass index (BMI) Body weight Body temperature Oxygen saturation Oxygen saturation in Arterial blood by Pulse oximetry Respiratory rate Heart rate Systolic blood pressure Diastolic blood pressure Provider Name and Address Organization Details Last Updated DateTime 5 165.1 cm 37.1 kg/m2 855604. 1 g 96.6 [degF] 93 % 93 % 16 /min 67 /min 118 mm[Hg] 80 mm[Hg] Theresa Hutchins [facility] & [place] 5 10:02:33 Date Recorded Body height Body mass index (BMI) Body weight Body temperature Oxygen saturation Oxygen saturation in Arterial blood by Pulse oximetry Heart rate Systolic blood pressure Diastolic blood pressure Provider Name and Address Organization Details Last Updated DateTime 5 165.1 cm 37.1 kg/m2 782775. 1 g 97.8 [degF] 95 % 95 % 78 /min 122 mm[Hg] 74 mm[Hg] Claudia Bertha [facility] & [place] 5 10:29:38 Date Recorded Body height Body mass index (BMI) Body weight Body temperature Oxygen saturation Oxygen saturation in Arterial blood by Pulse oximetry Heart rate Systolic blood pressure Diastolic blood pressure Provider Name and Address Organization Details Last Updated DateTime 5 165.1 cm 38.1 kg/m2 652367. 05 g 97.3 [degF] 98 % 98 % 70 /min 126 mm[Hg] 74 mm[Hg] Charla Velasquez [place] - [place] [facility] & [place] 5 10:23:20 Date Recorded Body height Body mass index (BMI) Body weight Body temperature Oxygen saturation Oxygen saturation in Arterial blood by Pulse oximetry Heart rate Systolic blood pressure Diastolic blood pressure Provider Name and Address Organization Details Last Updated DateTime 5 165.1 cm 38.1 kg/m2 306973. 65 g 97.9 [degF] 94 % 94 % 76 /min 120 mm[Hg] 68 mm[Hg] Claudia Stone [place] - [place] [facility] & [place] 5 08:17:14 Social History Question Answer Notes LastModified by Organizat ion Details LastModified Time Tobacco Smoking Status Never Smoker Not Available [facility] 11/16/2023 16:33:35 Do You Have An Advance [...] Bread, 1 Cup Of Whole-grain Or High-fiber Tqwdf-lx-lxs Cereal, 1 2 Cup Of Cooked Cereal Such As Oatmeal, Or 1 2 Cup Of Cooked Brown Rice Or Whole Wheat Pasta.) 0 Servings Per Day Information not available 10/11/2023 In The Past 7 Days, How Many Servings Of Fried Or High-fat Foods Did You Typically Eat Each Day? (Examples Include Fried Chicken, Fried Fish, [place], [place], Potato Chips, [place] Chips, Doughnuts, Creamy Salad Dressings, And Foods [...] Past 7 Days, How Often Have You Sheridan Sleepy During The Daytime? Always Information not [...] Do You Have A Medical Power Of Waste Removalist? No [email or web address] Information not available 10/24/2024 What Was The [...] available 07/2025 08:06:23 Medical History Condition Response COPD Y Arthritis Y Back Problems Y High Cholesterol Y Thyroid Problems Y Diabetes Y Congestive Heart Failure (CHF) Y Hypertension Y Gynecological History Statement/Question Response Menses Monthly N Abnormal Pap N 07/30/2022 Obstetrics History GPAL:G 0 P 0 0 0 0 Immunizations Vaccine Type Date Status Note Provider Nam e and Address Organization Details Recorded Time Influenza, split virus, quadrivalent, PF 1 completed Not Available [facility] 11/16/2023 16:33:36 Tdap 8 completed Not Available [facility] 11/16/2023 16:33:36 Influenza, split virus, quadrivalent, PF 3 completed TAMMI YEE [address], [place], [address], [place] & [place] 09/01/2023 09:03:47 Pneumococcal conjugate PCV 13 3 completed Tia Canales NP [address] [facility],[address], [place], [address], [place] [facility] & [place] 10/16/2023 09:13:17 Influenza, MDCK, trivalent, PF 4 completed Kenia avila, [place] - [place] [facility] & [place] 09/26/2024 08:58:38 Past Encounters Encounter ID Performer Location Encounter Start Date Encounter Closed Date Diagnosis/Indication Diagnosis SNOMED-CT Code Diagnosis ICD10 Code Diagnosis Note [id number] Acacia Benites [facility] [address] [address] 09/27/2022 13:50:14 09/27/2022 15:10:36 Cough 31757837 R05.9 Acute uppe r respiratory infection 91690432 J06.9 Candidiasis of mouth 797 09518 B37.0 [id number] Acacia Benites [facility] [address] [address] 12/23/2022 08:08:02 12/23/2022 09:28:45 Cough 62584975 R05.9 Acute uppe r respiratory infection 12685933 J06.9 Acquired hypothyroidism 109819938 E03.9 Depressive disorder 2982 9007 F32.A Chronic ob structive pulmonary disease 71429208 J44.9 Vitamin D deficiency 347 90846 E55.9 Anemia 225378053 D64.9 Iron deficiency 22646056 E61.1 Renewal of prescription 427810150 Z76.0 [id number] Acacia [address] [address] 12/28/2022 08:18:13 12/28/2022 09:01:43 Sleep pattern disturbance 73849939 G47.9 Daytime somnolence 74647 46009 00 R40.0 Chronic fa tigue syndrome 51676748 R53.82 Iron deficiency 73534080 E61.1 Type 2 su betes mellitus without complication 559085055 E11.9 Hypersomnia 43558159 G47 .[id number] [address] 02/23/2023 10:46:50 02/23/2023 11:38:59 Obstructive sleep apnea of adult 1994697641 103 G47.33 Chronic fa tigue syndrome 13762610 R53.82 Poor short -term memory 950318945 R41.3 Iron deficiency 63761736 E61.1 Prolapsed lumbar intervertebral disc 378771061 M51.[id number] [address] 04/05/2023 15:45:25 04/05/2023 16:33:26 Obstructive sleep apnea of adult 5128668156 103 G47.33 Hypoxemia 913743661 R09. 02 Dyspnea on exertion 6084 5006 R06.09 [id number] [address] 06/29/2023 14:12:56 06/29/2023 14:57:24 Acquired hypothyroidism 873544467 E03.9 Anemia 982545658 D64.9 Chronic fa tigue syndrome 92061428 R53.82 Chronic ob structive pulmonary disease 71850267 J44.9 Iron deficiency 99139292 E61.1 Poor short -term memory 118367264 R41.3 Type 2 su betes mellitus without complication 320389756 E11.9 Vitamin D deficiency 347 58848 E55.9 Hypoxemia 381059845 R09. 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 83924837 F33.2 [id number] Acacia Benites [address] [address] 07/06/2023 09:47:06 07/06/2023 10:36:40 Uncontrolled type 2 diabetes mellitus 040447989 E11.65 Depressive disorder 3548 9007 F32.A Difficulty sleeping 3013 14573 Z72.820 [id number] Acacia Benites [address] [address] 07/19/2023 13:02:48 07/19/2023 13:52:11 Body fluid retention 43573858 R60.9 Heart murmur 33638865 R0 1.1 Uncontroll ed type 2 diabetes mellitus 812495853 E11.65 [id number] Miguel Gomez MD [address] MU[address]OZ [address] [place] [address] 08/01/2023 08:28:25 08/01/2023 09:37:16 Essential hypertension 15381514 I10 Tight chest 12275653 R07 .89 Dyspnea on exertion 6084 5006 R06.09 Type 2 su betes mellitus without complication 548534909 E11.9 Tobacco de pendence syndrome 83670981 F17.200 Family his tory of coronary arteriosclerosis 469026052 Z82.49 Diastolic dysfunction 35 19354 I51.9 [id number] Keaton Keenan MD [address] [facility] [place] [address] 08/30/2023 09:39:27 08/30/2023 10:27:16 Mixed anxiety and depressive disorder 117488180 F41.8 Administra tion of influenza vaccine 82401390 Z23 Acquired hypothyroidism 398282292 E03.9 Anemia 836231629 D64.9 Chronic fa tigue syndrome 29967475 R53.82 Chronic ob structive pulmonary disease 84340681 J44.9 Depressive disorder 3548 9007 F32.A Hypomagnesemia 715830875 E83.42 Iron deficiency 96440019 E61.1 Uncontroll ed type 2 diabetes mellitus 757522516 E11.65 Vitamin D deficiency 347 08526 E55.9 [id number] Miguel Gomez MD [address] MU[address]OZ [address] [place] [address] 08/31/2023 07:48:59 08/31/2023 08:08:34 Angina pectoris 039366288 I20.9 Cardiovasc ular stress test abnormal 397338624 R94.39 Heart murmur 35928503 R0 1.1 Dyspnea on exertion 6084 5006 R06.09 Diastolic dysfunction 35 40131 I51.9 Tobacco de pendence syndrome 10147155 F17.200 Type 2 su betes mellitus without complication 180887436 E11.9 [id number] Keaton Keenan MD [place] [address] 09/04/2023 10:21:25 09/04/2023 10:40:51 Coronary arteriosclerosis 86214206 I25.10 Iron defic iency anemia 76844561 D50.9 Essential hypertension 63504640 I10 Chronic fa tigue syndrome 11286039 R53.82 Chronic ob structive pulmonary disease 83177215 J44.9 [id number] MD [place] [address] 09/07/2023 09:28:40 09/07/2023 10:24:53 Increased frequency of urination 610886423 R35.0 Mixed urin nguyen incontinence 019653284 N39.46 Edema of l ower extremity 280973269 R60.0 [id number] Miguel Gomez MD [address] MU[address]OZ [address] [place] [address] 09/07/2023 13:41:37 09/07/2023 14:23:13 Essential hypertension 26235768 I10 Hyperlipidemia 32362562 E78.5 Coronary arteriosclerosis 85924501 I25.10 Stented co ronary artery 835777150 Z95.5 [id number] Keaton Keenan MD [address] [address] 10/04/2023 10:06:12 10/04/2023 11:04:58 Acute laryngitis 2854766 J04.0 Acute uppe r respiratory infection 26598463 J06.9 [id number] Keaton Keenan MD [address] [address] 10/11/2023 10:39:14 10/11/2023 11:39:38 Adult health examination 583633849 Z00.00 Acquired hypothyroidism 781761389 E03.9 Chronic fa tigue syndrome 01735036 R53.82 Essential hypertension 78444742 I10 Hyperlipidemia 28965164 E78.5 Type 2 su betes mellitus without complication 107140611 E11.9 Immunization due 2419472 08 Z28.39 Screening for malignant neoplasm of colon 335796244 Z12.11 Screening mammography of bilateral breasts 2676500109 63926 Z12.31 [id number] Nghia Limon NP [address] [place] [address] 11/07/2023 13:45:20 11/07/2023 14:27:02 Coronary arteriosclerosis 71158509 I25.10 Essential hypertension 29936989 I10 Hyperlipidemia 79838180 E78.5 Stented co ronary artery 971988829 Z95.5 Intermitte nt claudication 54477529 I73.9 [id number] Keaton Keenan MD [address] [address] 11/07/2023 10:49:51 11/07/2023 11:23:17 Acute urinary tract infection 993491181 N39.0 History of calculus of kidney 263011805 Z87.442 [id number] Miguel Gomez MD [place] [address] [place] [address] 12/07/2023 12:59:55 12/07/2023 13:20:03 Coronary arteriosclerosis 22892372 I25.10 Essential hypertension 63676644 I10 Hyperlipidemia 08455786 E78.5 Stented co ronary artery 469638130 Z95.5 Peripheral vascular disease 864664470 I73.9 [id number] Keaton Keenan MD [address] [address] 01/01/2024 07:58:25 01/01/2024 08:52:52 Fever 695561855 R50.9 Nausea and vomiting 1693 2000 R11.2 Cough 06576996 R05.9 Essential hypertension 67217206 I10 Iron defic iency anemia 01445565 D50.9 Type 2 su betes mellitus without complication 294961537 E11.9 Chronic ob structive pulmonary disease 68516000 J44.9 Acquired hypothyroidism 288816465 E03.9 [id number] Keaton Keenan MD [address] [address] 01/17/2024 07:51:23 01/17/2024 08:45:00 Acquired hypothyroidism 042393801 E03.9 Chronic fa tigue syndrome 09884990 R53.82 Chronic ob structive pulmonary disease 40218829 J44.9 Coronary arteriosclerosis 65051947 I25.10 Depressive disorder 3548 9007 F32.A Essential hypertension 03357737 I10 Iron defic iency anemia 78512604 D50.9 Obstructiv e sleep apnea of adult 7577232180 103 G47.33 Type 2 su betes mellitus without complication 248456269 E11.9 Vitamin D deficiency 347 29153 E55.9 Renewal of prescription 488195299 Z76.0 Edema of l ower extremity 329546255 R60.0 Difficulty sleeping 3013 80429 Z72.820 Hyperlipidemia 22415658 E78.5 Mixed anxi ety and depressive disorder 407603582 F41.8 Uncontroll ed type 2 diabetes mellitus 432203532 E11.65 [id number] Keaton Keenan MD [facility] [address] [place] [address] 01/22/2024 14:07:26 01/22/2024 15:03:52 Altered bowel function 37532159 R19.4 Acquired hypothyroidism 795218041 E03.9 Chronic fa tigue syndrome 40684063 R53.82 Type 2 su betes mellitus without complication 446517370 E11.9 Essential hypertension 05140778 I10 Vitamin D deficiency 347 00263 E55.9 [id number] Keaton Keenan MD [facility] [address] [place] [address] 02/05/2024 09:57:30 02/05/2024 11:21:09 Kidney stone 04068554 N20.0 Acquired hypothyroidism 780885985 E03.9 Chronic ob structive pulmonary disease 64962963 J44.9 Essential hypertension 01059719 I10 Iron defic iency anemia 33374545 D50.9 Type 2 su betes mellitus without complication 056223649 E11.9 Vitamin D deficiency 347 32989 E55.9 [id number] Miguel Gomez MD [address]OZ [address] [place] [address] 03/04/2024 13:43:41 03/04/2024 14:19:55 Peripheral vascular disease 138691723 I73.9 Coronary arteriosclerosis 63918197 I25.10 Essential hypertension 85646697 I10 Hyperlipidemia 00366105 E78.5 Stented co ronary artery 932336303 Z95.5 Tobacco de pendence syndrome 87884884 F17.200 Screening for malignant neoplasm of respiratory tract 915661810 Z12.2 [id number] Nghia Limon NP [address] MU[address]OZ [address] [place] [address] 04/18/2024 12:49:47 04/18/2024 13:05:38 Peripheral vascular disease 189246664 I73.9 Coronary arteriosclerosis 94944543 I25.10 Essential hypertension 64615920 I10 Hyperlipidemia 76662183 E78.5 Stented co ronary artery 759131970 Z95.5 Tobacco de pendence syndrome 03297294 F17.088 [id number] Keaton Keenan MD [place] [address] 06/13/2024 13:50:51 06/13/2024 14:46:57 Essential hypertension 41795103 I10 Acquired hypothyroidism 326972038 E03.9 Chronic fa tigue syndrome 99515823 R53.82 Coronary arteriosclerosis 01818034 I25.10 Heart murmur 37732249 R0 1.1 Hyperlipidemia 41856156 E78.5 Iron defic iency anemia 76379658 D50.9 Type 2 su betes mellitus without complication 923846051 E11.9 Vitamin D deficiency 347 29941 E55.9 [id number] Keaton Keenan MD [place] [address] 9 07/02/2024 10:07:29 07/02/2024 11:22:04 Nasal congestion 57296217 R09.81 Acute uppe r respiratory infection 64394267 J06.9 Acquired hypothyroidism 356385968 E03.9 Uncontroll ed type 2 diabetes mellitus 574122354 E11.65 Environmental allergy 42 5078722 T78.49XD Cough 17751456 R05.9 Leukocytosis 787325403 D 72.829 Anemia 614035793 D64.9 [id number] Keaton Keenan MD [place] 4[address] 07/05/2024 15:40:32 07/05/2024 16:35:20 Hyperlipidemia 67513040 E78.5 Uncontroll ed type 2 diabetes mellitus 489211461 E11.65 Renewal of prescription 284843614 Z76.0 Chronic ob structive pulmonary disease 74270402 J44.9 Essential hypertension 14142667 I10 Type 2 su betes mellitus without complication 476925814 E11.9 Folic acid deficiency 19 7745271 E53.8 Iron deficiency 72024023 E61.1 Acute uppe r respiratory infection 74641477 J06.9 [id number] Nghia Limon NP [address] [place] [address] 09/25/2024 13:09:25 09/25/2024 13:43:09 Peripheral vascular disease 882374423 I73.9 Coronary arteriosclerosis 74181307 I25.10 Essential hypertension 34618007 I10 Hyperlipidemia 02497628 E78.5 Stented co ronary artery 767383527 Z95.5 Tobacco de pendence syndrome 46253691 F17.967 [id number] Keaton Keenan MD [place] [address] 09/26/2024 07:45:47 09/26/2024 08:43:58 Coronary arteriosclerosis 98273263 I25.10 Chronic ob structive pulmonary disease 31386021 J44.9 Acquired hypothyroidism 156174553 E03.9 Essential hypertension 38496477 I10 Heart murmur 28162552 R0 1.1 Iron defic iency anemia 80555357 D50.9 Type 2 su betes mellitus without complication 166449627 E11.9 Vitamin D deficiency 347 57369 E55.9 Body mass index 30+ - obesity 228154617 Z68.35 Meeks's esophagus 3029 97804 K22.70 Administra tion of influenza vaccine 07011837 Z23 [id number] [facility]ian [facility] [address] [place] [address] [address] [place] [address] 12/11/2024 07:43:31 12/11/2024 09:04:13 History of Meeks's esophagus 2660180494 3641418 Z87.19 Esophagoga stroduoden oscopy. [id number] Keaton Keenan MD [address] [address] 10/21/2024 13:29:39 10/21/2024 14:29:56 Acute upper respiratory infection 20920523 J06.9 Essential hypertension 69251607 I10 Type 2 su betes mellitus without complication 525843715 E11.9 [id number] Keaton Keenan MD [place] [address] 10/24/2024 15:47:44 10/24/2024 16:31:01 Adult health examination 501925097 Z00.00 Acquired hypothyroidism 703430603 E03.9 Chronic fa tigue syndrome 30242353 R53.82 Chronic ob structive pulmonary disease 89682499 J44.9 Coronary arteriosclerosis 22431113 I25.10 Depressive disorder 3548 9007 F32.A Essential hypertension 15917112 I10 Heart murmur 50453792 R0 1.1 Hyperlipidemia 22638182 E78.5 Iron defic iency anemia 93870371 D50.9 Obstructiv e sleep apnea of adult 4759803164 103 G47.33 Type 2 su betes mellitus without complication 640127681 E11.9 Hypomagnesemia 252920657 E83.42 Morbid obesity 576867991 E66.01 Uncontroll ed type 2 diabetes mellitus 320527404 E11.65 [id number] Keaton Keenan MD [address] [address] 11/04/2024 13:34:48 11/04/2024 14:33:57 Acquired hypothyroidism 290402550 E03.9 Chronic fa tigue syndrome 16380727 R53.82 Chronic ob structive pulmonary disease 28860860 J44.9 Coronary arteriosclerosis 36389862 I25.10 Depressive disorder 3548 9007 F32.A Essential hypertension 49925678 I10 Type 2 su betes mellitus without complication 810676729 E11.9 Obstructiv e sleep apnea of adult 0669684322 103 G47.33 Iron defic iency anemia 27031854 D50.9 [id number] Keaton Keenan MD [address] [address] 11/07/2024 15:20:57 11/07/2024 16:02:23 Meeks's esophagus 240589696 K22.70 Iron deficiency 89959616 E61.1 Hypokalemia 42626613 E87 .6 Folic acid deficiency 19 8548304 E53.8 Uncontroll ed type 2 diabetes mellitus 899290465 E11.65 Pain of mu ltiple joints 07580079 M25.50 Vitamin D deficiency 347 75004 E55.9 [id number] Keaton Keenan MD [place] [address] [place] [address] 12/16/2024 13:00:37 12/16/2024 13:56:22 Iron deficiency anemia 01484083 D50.9 Essential hypertension 65022155 I10 Type 2 su betes mellitus without complication 547488648 E11.9 [id number] Keaotn Keenan MD [address] [address] 12/24/2024 15:32:38 12/24/2024 16:08:38 Coronary arteriosclerosis 67886233 I25.10 Type 2 su betes mellitus without complication 007532817 E11.9 Essential hypertension 50955344 I10 Hypertroph ic condition of skin 01412705 L91.9 Skin lesion 48742636 L98 .9 [id number] Keaton Keenan MD [address] [address] 12/27/2024 15:45:46 12/27/2024 16:35:24 Skin lesion 32091222 L98.9 [id number] TAMMI Alexandra [facility] [address] [place] [address] 01/06/2025 12:59:28 01/06/2025 13:27:04 Nondiabetic gastroparesis 19301420 K31.84 [id number] Keaton Keenan MD [place] [address] [place] [address] 01/10/2025 07:54:39 01/10/2025 08:32:12 Acute upper respiratory infection 66052434 J06.9 Coronary arteriosclerosis 14836473 I25.10 Essential hypertension 14966435 I10 Type 2 su betes mellitus without complication 301765721 E11.9 [id number] Keaton Keenan MD [address] [address] 01/13/2025 09:48:42 01/13/2025 11:31:33 Skin lesion 78855383 L98.9 Type 2 su betes mellitus without complication [id number] E11.9 Iron defic iency anemia 01191285 D50.9 Chronic ob structive pulmonary disease 10970369 J44.9 Essential hypertension [id number] I10 [id number] Keaton Keenan MD [address] [address] 02/24/2025 10:18:06 02/24/2025 11:06:51 Hyperlipidemia 91688968 E78.5 Pain of mu ltiple joints 22619563 M25.50 Mixed anxi ety and depressive disorder 992226915 F41.8 Coronary arteriosclerosis 76103335 I25.10 Vitamin D deficiency 347 61251 E55.9 Uncontroll ed type 2 diabetes mellitus 987028401 E11.65 Renewal of prescription 486714160 Z76.0 Difficulty sleeping 3013 05527 Z72.820 Edema of l ower extremity 440845507 R60.0 Meeks's esophagus 3029 69722 K22.70 Environmental allergy 42 2452702 T78.49XD Acquired hypothyroidism 872038140 E03.9 Lumbar radiculopathy 128 142873 M54.16 [id number] Keaton Keenan MD [address] [place] [address] 03/12/2025 10:16:28 03/12/2025 11:00:34 Uncontrolled type 2 diabetes mellitus [id number] E11.65 Chronic ob structive pulmonary disease 48242959 J44.9 Heart murmur 97129172 R0 1.1 Lumbar radiculopathy 128 657551 M54.16 [id number] Keaton Keenan MD [address] [address] 03/28/2025 08:06:11 03/28/2025 08:29:25 Lumbar radiculopathy 251529584 M54.16 Uncontroll ed type 2 diabetes mellitus 762447480 E11.65 Prolapsed lumbar intervertebral disc 744043423 M51.26 Edema of l ower extremity 506331580 R60.0 Diastolic dysfunction 35 69628 I51.9 Coronary arteriosclerosis 52947944 I25.10 Health Concerns Section Related Observation LastModified by Organization Detai ls LastModified Time None Recorded Concern Status LastModified by Organization Details LastModified Time None Recorded Advance Directives Directive N: Payers Insurance Date Sequence Insurance Name Policy Number Policy [place] Covered Member ID [place] Member ID Guarantor Name 06/13/2024 1 [employer] (MEDICARE REPLACEMENT[place]AD [place]AGE [id number] Lainey Jerrica [id number] Lainey Jerrica 06/13/2024 1 [id number] Lainey Lilo Jerrica [id number] Lainey Jerrica 04/22/2025 1 [place] HMO[place] [id number] Lainey G Jerrica [id number] Lainey Jerrica 01/13/2023 1 [place] [id number] Dewey Joshi Jerrica [id number] Lainey Jerrica Notes Date Note Type Note Provider Name and Address Organization Details Recorded Time 01/10/2025 text/html patient presents today for evaluation. is experiencing upper respiratory congestion. Postnasal drainage. Ear pressure and fullness. Runny nose. Postnasal drainage creating a cough. This is been going on for the last 2 days. Occasional sneezing. Initially came in for skin lesion evaluation and treatment but because of her illness this was deferred until a later date. She does have a history of COPD. She uses an albuterol inhaler as well as taking Singulair. She does have a nebulizer machine at home when needed. No increased shortness of breath or wheezing. She does have a cough associated with her upper respiratory problems She does have a cardiac history. She is currently taking Plavix as well as torsemide. She follows with [facility]. TAMMI YEE [address] [facility],[address], [place], [address], [place] - [place] & [place] 01/13/2025 07:42:03 01/13/2025 text/html Patient presents today for evaluation. She has a history of skin lesions. We have removed one prior. The area of prior removal is healing well; however, it remains dry. Patient has not been using any emollients to aid in hydration. I recommended she begin to do this again. She denies any pain, irritation, or purulent discharge at the site. has history of diabetes. In the past we have tried obtaining different medications but her insurance company will not cover it. We are having to use glipizide 10 mg twice a day. She does have episodes of when her glucose levels drop because of this. She does not eat on a regular basis. She does have a history of COPD. She uses an albuterol inhaler as well as taking Singulair. She does have a nebulizer machine at home when needed. No increased shortness of breath or wheezing. She does have a cough associated with her upper respiratory problems She does have a cardiac history. She is currently taking Plavix as well as torsemide. She follows with [facility]. She has another skin lesion located on the posterior aspect of the left shoulder. It measures 1.5 cm in diameter. It is dark in color and roughened surface. It is the same type of tissue presentation as the previous excised site that was benign with pathology. TAMMI YEE [address] [place] [address],[address], [place], [address], [place] & [place] 01/14/2025 08:09:52 02/24/2025 text/html Patient presents today for evaluation. She has history of diabetes. In the past we have tried obtaining different medications but her insurance company will not cover it. We are having to use glipizide 10 mg twice a day. She does have episodes of when her glucose levels drop because of this. She does not eat on a regular basis. She reports her glucose levels have been yo-yo ing and typically range from >200 to 150, with a few episodes weekly of <100 that cause dizziness. Discussed starting long acting insulin with patient. She does have a history of COPD. She uses an albuterol inhaler as well as taking Singulair. She does have a nebulizer machine at home when needed. No increased shortness of breath or wheezing. Reports she has not had any recent exacerbations of COPD. Reports she is having increased lower back pain. She has previously had surgery for her back pain. She follows with [facility] for this. She has an upcoming appointment at the end of this month. Denies loss of bladder or bowel control. She does have a cardiac history. She is currently taking Plavix as well as torsemide. She follows with [facility]. Blood pressure in office today is 122/74 with a heart rate of 74. TAMMI YEE [address] [facility],[address], [place], [address], [place] [facility] & [place] 02/25/2025 07:49:38 03/12/2025 text/html Patient presents today for evaluation. [...] have history of cardiac stents. TAMMI YEE [address] [facility], [place], [address], [place] [facility] & [place] 03/12/2025 16:05:09 03/28/2025 text/html patient presents today for evaluation. [...] laboratory assessment next office visit. TAMMI YEE [address] [facility],[address], [place], [address], [place] 03/31/2025 07:34:50 OBGyn Episode No OBEpisode recorded.
--- OUTSIDE RECORDS SUMMARY | 2025-05-01 10:27 | XMS_ITS | CCD ---
Author Name Armarkell RASHIDSilvia Address [address] [facility] [address] [facility] [address] [place] [address] Phone Organization [facility] Phone Care Team Providers Care Rehabilitation Clerk Name Role Phone Office, [place] Primary Care Provider Unavaila ble Unavailable Chronic Care Management Unavaila ble Summary Purpose DataExchange Insurance Providers Payer name Policy type / Coverage type Covered republican ID Effective Begin Date Effective End Date [employer] BCBS [facility] [id number] Unknown Unknown Family History Family History data [...] 08/31/2023 Active 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 02/19/20 25 Active hydroCHLOROthiazide (HYDRODIURIL) 25 MG tablet RxNorm: 197960 Take 1 tablet (25 mg total) by mouth daily. 02/19/20 25 Active diclofenac (VOLTAREN) 75 MG EC tablet RxNorm: 790740 Take 1 tablet (75 mg total) by mouth 2 (two) times daily. 02/19/20 25 Active traZODone (DESYREL) 50 MG tablet RxNorm: 247196 Take 1 tablet (50 mg total) by mouth nightly. 02/19/20 25 Active torsemide (DEMADEX) 20 MG tablet RxNorm: 602246 Take 1 tablet (20 mg total) by mouth daily. 02/19/20 25 Active glipiZIDE (GLUCOTROL) 10 MG tablet RxNorm: 695287 Take 1 tablet (10 mg total) by mouth 2 (two) times daily before meals. 02/19/20 25 Active citalopram (CeleXA) 20 MG tablet RxNorm: 793456 Take 1 tablet (20 mg total) by mouth daily. 02/19/20 25 Active pantoprazole (PROTONIX) 40 MG tablet RxNorm: 528465 Take 1 tablet (40 mg total) by mouth daily. 02/19/20 25 Active aspirin 81 MG EC tablet RxNorm: 104344 Take 1 tablet (81 mg total) by mouth daily. 02/19/20 25 Active levothyroxine (SYNTHROID, LEVOTHROID) 112 MCG tablet RxNorm: 671553 Take 1 tablet (112 mcg total) by mouth Every morning on an empty stomach. 02/19/20 25 Active clopidogreL (PLAVIX) 75 mg tablet RxNorm: 093294 Take 1 tablet (75 mg total) by mouth daily. 02/19/20 25 Active atorvastatin (LIPITOR) 80 MG tablet RxNorm: 536872 Take 1 tablet (80 mg total) by mouth daily. 02/19/20 25 Active nitroglycerin (NITROSTAT) 0.4 MG SL tablet RxNorm: 554455 Place 1 tablet (0.4 mg total) under [...] not seen Diagnosis: Patient not seen[ICD10: UXZ.01] Silvia Dumont [place] Office [address] [facility] [address] [place] [address] CPT-4: 95512 02/19/2025 Plan of Care Planned Activity Notes Codes Status Date Appointment: Silvia Dumont WPtel: [address] [address] 02/19/2025 Patient Education: Patient Medication Summary Completed 02/19/2025 Medical Equipment No Medical Equipment data Advance Directives No Advance Directive data
--- OUTSIDE RECORDS SUMMARY | 2025-05-01 10:28 | XMS_ITS | CCD ---
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 Name Role Phone Office, [place] Primary Care Provider Unavaila ble Unavailable Chronic Care Management Unavaila ble Summary Purpose DataExchange Insurance Providers Payer name Policy type / Coverage type Covered republican ID Effective Begin Date Effective End Date [employer] BCBS [facility] [id number] Unknown Unknown Family History Family History data [...] 08/31/2023 Active 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 02/19/20 25 Active hydroCHLOROthiazide (HYDRODIURIL) 25 MG tablet RxNorm: 161913 Take 1 tablet (25 mg total) by mouth daily. 02/19/20 25 Active diclofenac (VOLTAREN) 75 MG EC tablet RxNorm: 527541 Take 1 tablet (75 mg total) by mouth 2 (two) times daily. 02/19/20 25 Active traZODone (DESYREL) 50 MG tablet RxNorm: 760139 Take 1 tablet (50 mg total) by mouth nightly. 02/19/20 25 Active torsemide (DEMADEX) 20 MG tablet RxNorm: 723894 Take 1 tablet (20 mg total) by mouth daily. 02/19/20 25 Active glipiZIDE (GLUCOTROL) 10 MG tablet RxNorm: 308890 Take 1 tablet (10 mg total) by mouth 2 (two) times daily before meals. 02/19/20 25 Active citalopram (CeleXA) 20 MG tablet RxNorm: 130887 Take 1 tablet (20 mg total) by mouth daily. 02/19/20 25 Active pantoprazole (PROTONIX) 40 MG tablet RxNorm: 923924 Take 1 tablet (40 mg total) by mouth daily. 02/19/20 25 Active aspirin 81 MG EC tablet RxNorm: 269238 Take 1 tablet (81 mg total) by mouth daily. 02/19/20 25 Active levothyroxine (SYNTHROID, LEVOTHROID) 112 MCG tablet RxNorm: 155975 Take 1 tablet (112 mcg total) by mouth Every morning on an empty stomach. 02/19/20 25 Active clopidogreL (PLAVIX) 75 mg tablet RxNorm: 300313 Take 1 tablet (75 mg total) by mouth daily. 02/19/20 25 Active atorvastatin (LIPITOR) 80 MG tablet RxNorm: 252997 Take 1 tablet (80 mg total) by mouth daily. 02/19/20 25 Active nitroglycerin (NITROSTAT) 0.4 MG SL tablet RxNorm: 618539 Place 1 tablet (0.4 mg total) under [...] Diagnosis: Patient not seen[ICD10: UXZ.01] Silvia Dumont [place] Office [address] [facility] [address] [place] [address] CPT-4: 37255 02/19/2025 Plan of Care Planned Activity Notes Codes Status Date Appointment: Silvia Dumont WPtel: [address] [address] 02/19/2025 Patient Education: Patient Medication Summary Completed 02/19/2025 Medical Equipment No Medical Equipment data Advance Directives No Advance Directive data
--- NOTE | 2025-05-01 10:39 | EXP.PAIN.SOA ---
[facility] Disclaimer: The information contained in this section may have been updated after the patient was seen, as this information can be updated by other users. Medical History (Updated 04/22/25 @ 10:10 by Poornima Vogel APRN) Vitamin D deficiency Depression Arthritis Emphysema of lung Thyroid disease GERD (gastroesophageal reflux disease) Heart disease Surgical History (Updated 03/20/25 @ 15:07 by Steff Lezama RN) History of lumbar spinal fusion Hx of cholecystectomy H/O: hysterectomy Family History (Updated 03/20/25 @ 15:05 by Steff Lezama RN) Other Diabetes Heart disease Hypertension Seizures Stroke Social History (Updated 03/20/25 @ 15:11 by Steff Lezama RN) Smoking Status: Current every day smoker (0.5 ppd) tobacco type: cigarettes packs per day: 1 alcohol intake: never substance use type: denies use current occupational status: disabled (Worked at [employer]) Travel in the last 8 weeks?: None number of children: 3 (Kids are 34, 32 and 30 ) Have you lived/traveled outside US in past 30 days?: No Contact w/someone who lives/traveled outside US past 30 days?: No Exposure to someone with infectious disease in past 14 days?: No Do you have a fever (greater than 100.4 F or 38 C)?: No Have you tested positive for COVID-19?: No Exposed to someone with COVID-19 in past 14 days?: No Do you have a sore throat?: No Do you have a cough?: No Do you have any weakness?: No Are you experiencing any nausea/vomitting?: No Do you have any diarrhea?: No Are you experiencing any unusual bleeding?: No Do you have any muscle aches/pain?: No Do you have any abdominal pain?: No Are you experiencing loss of taste or smell?: No PM Subjective & Objective Subjective Subjective:: Patient is a pleasant 54-year-old female who presents today for follow-up of her psychological evaluation. Today she rates her pain a 6 out of 10. She denies any new trauma or injury. She does state that she is still having the chronic low back pain that is constant and does interfere with her ability perform activities of daily living such as cooking and cleaning. Patient does state that she was wanting to proceed forward with the pump trial option. Patient is currently prescribed tramadol from an outside provider. Patient is on blood thinners written by Dr. Weaver in [place]. Her Patrice has been reviewed and is appropriate. Review of Systems: General: No recent weight changes, no fever, no sleep disturbances Respiratory: No cough, no shortness of air, no recurring pulmonary infections Cardiovascular/peripheral vascular: No chest pain, no palpitations, no edema, no shortness of breath Gastrointestinal: No new onset incontinence, normal bowel movements reported Genitourinary: No new onset incontinence Musculoskeletal: Chronic low back pain Psychiatric: [Normal mood/affect] Neurological: [Denies weakness in extremities], [denies balance issues] Pain at rest (0-10 scale): 6 Objective Objective:: Physical Exam: General: Alert and oriented x3, no acute distress, pleasant and cooperative Lungs: Respirations even and unlabored, symmetrical chest expansion Eyes: PERRL Musculoskeletal: Flexion and extension of lumbar [spine] somewhat guarded secondary to pain, [antalgic gait noted] Neurological: Speech clear, no gross sensory deficit Has patient had previous pain injection?: No Conservative treatment options previously tried: Home exercise plan Length of treatment: Longer than 12 weeks, Physical Therapy Length of treatment: Made worse and Prescription medications Length of treatment: Longer than 12 weeks Meds Home Medications and Allergies Home Medications ?Medication ?Instructions ?Recorded ?Confirmed ?Type atorvastatin 80 mg tablet 80 mg PO DAILY Cholesterol 03/20/25 03/20/25 History blood sugar diagnostic (OneTouch 03/20/25 03/20/25 History Ultra Test strips) celecoxib 200 mg capsule 200 mg PO DIRECTED Pain 03/20/25 03/20/25 History citalopram 20 mg tablet 20 mg PO DIRECTED MOOD 03/20/25 03/20/25 History clopidogrel 75 mg tablet 75 mg PO DAILY CAD 03/20/25 03/20/25 History fluticasone propionate 50 1 spray intranasal DIRECTED 03/20/25 03/20/25 History mcg/actuation nasal ALLERGIES spray,suspension glipizide 10 mg tablet 10 mg PO DIRECTED DM 03/20/25 03/20/25 History hydrochlorothiazide 25 mg tablet 25 mg PO DIRECTED Fluid 03/20/25 03/20/25 History insulin glargine 100 unit/mL (3 50 unit SQ DAILY DM 03/20/25 03/20/25 History mL) subcutaneous pen (Lantus Solostar U-100 Insulin) levothyroxine 137 mcg tablet 137 mcg PO DAILY THYROID 03/20/25 03/20/25 History (Synthroid) montelukast 10 mg tablet 10 mg PO DAILY ALLERGIES 03/20/25 03/20/25 History pantoprazole 40 mg tablet,delayed 40 mg PO DAILY GERD 03/20/25 03/20/25 History release pen needle, diabetic 31 gauge x 03/20/25 03/20/25 History 3/16 semaglutide 0.25 mg or 0.5 mg (2 0.25 mg SQ WEEKLY DM 03/20/25 03/20/25 History mg/3 mL) subcutaneous pen injector (Ozempic) torsemide 20 mg tablet 20 mg PO DIRECTED Fluid 03/20/25 03/20/25 History trazodone 50 mg tablet 50 mg PO DIRECTED SLEEP 03/20/25 03/20/25 History New Prescriptions to Start Prescriptions: Allergies Allergy/AdvReac Type Severity Reaction Status Date / Time No Known Allergies Allergy Verified 03/20/25 15:23 Assessment and Plan *Assessment and plan (1) Chronic pain syndrome: Status: Acute Category: Medical Code(s): G89.4 - Chronic pain syndrome (2) Lumbar facet arthropathy: Status: Acute Category: Medical Code(s): M47.816 - Spondylosis without myelopathy or radiculopathy, lumbar region (3) Degenerative disc disease: Status: Acute Category: Medical Plan I did review over with the patient regarding her psychological evaluation and she was deemed an appropriate candidate for the intrathecal pain pump trial. Patient has tried and failed conservative therapy including oral medications, heat and ice, topicals, physical therapy and continued at home stretching exercise that was longer than 12 weeks that was physician guided. Patient has also had lumbar fusion in the past and is also tried multiple injections including facet injections and ablations as well as epidurals with no changes. Patient has been seen by neurosurgery and was not recommended for additional spine surgery. Patient was reviewed over the risk and benefits of the intrathecal pain pump trial and she would like to proceed forward with this plan of care. We will submit to insurance for this procedure and it will be done under fluoroscopic guidance. Patient was counseled that it would be contingent on the fact that she stops her oral pain medication 48 hours prior to this procedure and that if she does have a successful pump trial that we would proceed forward with the implant at which time she would not do any oral pain medications and only do the intrathecal pump medication. Patient agrees with this plan of care. Patient will return to clinic for her intrathecal pain pump trial under fluoroscopy. Patient has been instructed to contact the clinic with any concerns before the next appointment. Dr. Velez has reviewed this note and agrees with this plan of care. This note was dictated using voice recognition software and make contain errors or omissions. All injections are used with Lidocaine, Bupivacaine and dexamethasone. Occasionally urine drug screen is needed to verify patient's compliance with our office pain contract. This is ordered based off specific treatments related to chronic pain with the potential to abuse certain medications.
[2025-05-01 10:57] VITALS: BP 140/83; PULSE 79; RESP 18; O2SAT 96; BMI 33.3
== END 2025-05-01 23:59 | disposition home or self-care (01) ==
LOC: SC.PAIN 09:17
PROVIDERS: PCP Physician Assistant; Visit Provider Nurse Practitioner Family
DX: G89.4 Chronic pain syndrome (principal); M47.816 Spondylosis without myelopathy or radiculopathy, lumbar region
CPT/HCPCS: 99212; G0463

== ENCOUNTER 2025-09-12 08:06 | Day surgery (SDC) | payer MEDICARE, SELFPAY ==
[2025-09-12 08:46] VITALS: BP 130/78; PULSE 71; RESP 16; O2SAT 93; BMI 35.2
[2025-09-12] MEDS: FENTANYL 100MCG/2ML VIAL 100 MCG (10:34)
[2025-09-12] MEDS: LIDOCAINE 1% 30ML PF VIAL 30 ML (10:34)
[2025-09-12 10:36] VITALS: BP 130/89; PULSE 72; RESP 18; O2SAT 97
[2025-09-12 10:40] VITALS: BP 130/89; PULSE 71; RESP 18; O2SAT 96
[2025-09-12 10:54] VITALS: BP 122/71; PULSE 69; RESP 18; O2SAT 94
--- NOTE | 2025-09-12 10:56 | EXP.HP ---
History of Present Illness *Admission Date: 09/12/25 *Reason for visit:: Intrathecal pump trial *History of present illness: This patient is a pleasant 55-year-old white female who we have been treating for degenerative disease of lumbar spine with lumbar radiculopathy symptoms. She has failed all previous conservative therapy. She has had a successful psychological evaluation. She presents for intrathecal pump trial today. [facility] Disclaimer: The information contained in this section may have been updated after the patient was seen, as this information can be updated by other users. Medical History (Updated 09/12/25 @ 11:02 by Nicholas Velez MD) Vitamin D deficiency Depression Arthritis Emphysema of lung Thyroid disease GERD (gastroesophageal reflux disease) Heart disease Surgical History History of lumbar spinal fusion Hx of cholecystectomy H/O: hysterectomy Family History Diabetes Heart disease Seizures Hypertension Stroke Social History Smoking Status: Current every day smoker (0.5 ppd) tobacco type: cigarettes packs per day: 1 alcohol intake: never substance use type: denies use current occupational status: disabled Travel in the last 8 weeks?: None number of children: 3 (Kids are 34, 32 and 30 ) Have you lived/traveled outside [place] in past 30 days?: No Contact w/someone who lives/traveled outside [place] past 30 days?: No Exposure to someone with infectious disease in past 14 days?: No Do you have a fever (greater than 100.4 F or 38 C)?: No Have you tested positive for COVID-19?: No Exposed to someone with COVID-19 in past 14 days?: No Do you have a sore throat?: No Do you have a cough?: No Do you have any weakness?: No Do you have any diarrhea?: No Are you experiencing any unusual bleeding?: No Do you have any muscle aches/pain?: No Do you have any abdominal pain?: No Are you experiencing loss of taste or smell?: No Other Medical History Have you received the Flu Vaccine for this season: No Have you received the Pneumonia Vaccine: No Review of Systems Review of Systems Review of systems:: pertinent systems reviewed and negative unless documented below Meds Home Medications and Allergies Home Medications ?Medication ?Instructions ?Recorded ?Confirmed ?Type atorvastatin 80 mg tablet 80 mg PO DAILY Cholesterol 03/20/25 09/12/25 History blood sugar diagnostic (OneTouch 03/20/25 09/12/25 History Ultra Test strips) celecoxib 200 mg capsule 200 mg PO DIRECTED Pain 03/20/25 09/12/25 History citalopram 20 mg tablet 20 mg PO DIRECTED MOOD 03/20/25 09/12/25 History clopidogrel 75 mg tablet 75 mg PO DAILY CAD 03/20/25 09/12/25 History fluticasone propionate 50 1 spray intranasal DIRECTED 03/20/25 09/12/25 History mcg/actuation nasal ALLERGIES spray,suspension glipizide 10 mg tablet 10 mg PO DIRECTED DM 03/20/25 09/12/25 History hydrochlorothiazide 25 mg tablet 25 mg PO DIRECTED Fluid 03/20/25 09/12/25 History insulin glargine 100 unit/mL (3 50 unit SQ DAILY DM 03/20/25 09/12/25 History mL) subcutaneous pen (Lantus Solostar U-100 Insulin) levothyroxine 137 mcg tablet 137 mcg PO DAILY THYROID 03/20/25 09/12/25 History (Synthroid) montelukast 10 mg tablet 10 mg PO DAILY ALLERGIES 03/20/25 09/12/25 History pantoprazole 40 mg tablet,delayed 40 mg PO DAILY GERD 03/20/25 09/12/25 History release pen needle, diabetic 31 gauge x 03/20/25 09/12/25 History 3/16 semaglutide 0.25 mg or 0.5 mg (2 0.25 mg SQ WEEKLY DM 03/20/25 09/12/25 History mg/3 mL) subcutaneous pen injector (Ozempic) torsemide 20 mg tablet 20 mg PO DIRECTED Fluid 03/20/25 09/12/25 History trazodone 50 mg tablet 50 mg PO DIRECTED SLEEP 03/20/25 09/12/25 History New Prescriptions to Start Prescriptions: Allergies Allergy/AdvReac Type Severity Reaction Status Date / Time No Known Allergies Allergy Verified 03/20/25 15:23 Exam Data for Last 24 hours Vital signs and Labs for Last 24 Hours: Pulse Resp BP Pulse Ox O2 Del Method 71 18 130/89 96 Room Air 09/12/25 10:40 09/12/25 10:40 09/12/25 10:40 09/12/25 10:40 09/12/25 10:40 I & O for Last 24 hours: Intake & Output 09/09/25 09/10/25 09/11/25 09/12/25 11:59 11:59 11:59 11:59 Weight 212 lb *Routine HEENT Exam Head: Present normocephalic Eye: Present EOMI and PERRL ENT: Present mucous membranes moist *Routine Respiratory Exam Respiratory: Present CTA bilaterally *Routine Cardiovascular Exam Cardiovascular: Present RRR, Normal S1 and Normal S2 *Routine Abdominal Exam Abdominal: Present soft *Routine Rectal Exam Rectal:: deferred *Routine Genitalia Exam Genitalia:: deferred Assessment and Plan *Assessment and plan (1) Degenerative disc disease: Status: Acute Qualifiers: Spinal region: lumbar Disc-related pain type: discogenic back pain and lower extremity pain Qualified Code(s): M51.362 - Other intervertebral disc degeneration, lumbar region with discogenic back pain and lower extremity pain Category: Medical (2) Lumbar facet arthropathy: Status: Acute Category: Medical Code(s): M47.816 - Spondylosis without myelopathy or radiculopathy, lumbar region Plan Intrathecal pump trial
--- NOTE | 2025-09-12 11:02 | P.PCN_ITS ---
Procedure Date: 09/12/25 Time: 11:03 Anesthesiologist:: Nicholas Velez MD Complications:: None Pre-procedure Diagnosis:: Degenerative disease of lumbar spine with lumbar radiculopathy symptoms Post-procedure Diagnosis:: Same Indications for Procedure:: The patient is a pleasant 55-year-old white female who we have been treating for degenerative disease of lumbar spine with lumbar radiculopathy symptoms. She has failed all previous conservative therapy. She has had a successful psychological evaluation. She presents for intrathecal pump trial today. Procedure Details:: Pain pump trial Informed consent was obtained and the risk and benefits of the procedure was explained to the patient. The patient was taken to the procedure room and placed prone on the procedure table. Patient was prepped and draped in sterile fashion. C-arm fluoroscopy was used to view the lumbar spine. The skin and subcutaneous tissues were anesthetized using lidocaine. I placed a 18-gauge spinal needle into the L4-5 interspace and advanced until clear CSF was obtained. After this intrathecal catheter was inserted and advanced very easily to the L1 vertebral body. The needle was withdrawn. We were able to freely withdraw clear CSF through the catheter. We then injected intrathecal fentanyl single shot bolus of 25 mcg followed by saline and followed by the previous CSF that was withdrawn. The needle and catheter were then removed and a Band-Aid was placed. Patient tolerated the procedure well with no complications. We reevaluated the patient after 30 minutes to 1 hour. Plan and Disposition:: * Will follow-up with this patient in 1 week. Will assess efficacy of this trial. If successful we will plan on permanent placement with intrathecal morphine 1 mg/mL to start at 1 mcg/day.
[2025-09-12 11:34] VITALS: BP 140/82; PULSE 70; RESP 18; O2SAT 98
== END 2025-09-12 11:34 | disposition home or self-care (01) ==
PROVIDERS: PCP Physician Assistant; Visit Provider Anesthesiology
DX: M51.362 Other intervertebral disc degeneration, lumbar region with discogenic back pain and lower extremity pain (principal); M47.816 Spondylosis without myelopathy or radiculopathy, lumbar region; E55.9 Vitamin D deficiency, unspecified; F32.A Depression, unspecified; J43.9 Emphysema, unspecified; K21.9 Gastro-esophageal reflux disease without esophagitis; E07.9 Disorder of thyroid, unspecified; I51.9 Heart disease, unspecified; F17.210 Nicotine dependence, cigarettes, uncomplicated; Z79.02 Long term (current) use of antithrombotics/antiplatelets; Z79.4 Long term (current) use of insulin; Z79.890 Hormone replacement therapy; Z79.85 Long-term (current) use of injectable non-insulin antidiabetic drugs; Z79.899 Other long term (current) drug therapy
CPT/HCPCS: 62323; 99221; J0690; J2003; J3010